=== PATIENT | female | born 1965 | race Caucasian/White ===

== ENCOUNTER 2022-05-12 09:07 | Emergency (ER) | payer MEDICARE, OTHER, SELFPAY ==
[2022-05-12 09:22] VITALS: BP 139/86; PULSE 79; TEMP 35.9; O2SAT 96
--- NOTE | 2022-05-12 09:30 | ED.NURSE ---
EKG done. Pt stated that her heart has been stopping for the last 6-8 weeks and no one will take her to [facility] doctor when this happens. Pt stated [facility] will take care of it. Pt stated that she tried to see her [facility] doctor and her doctor walked out of the room and didnt come back. Pt then stated she went to the [facility] ER and stated there wasn't a doctor on site to take care of her so she walked out of there with out being seen. Asked if pt walked out of an exam room or lobby and pt stated the lobby.
--- NOTE | 2022-05-12 09:45 | ED.GENADULT ---
HPI - General Adult General Chief complaint: Unspecified Complaint, Adult Stated complaint: Erratic heart beat Time Seen by Provider: 05/12/22 09:34 History of Present Illness HPI narrative: This 56-year-old female comes in reporting problems with her heart and her breathing. She states that she flat lined for 37 minutes earlier today. She did not have any lightheadedness, nausea, vomiting, or shortness of breath during this time. She states that her automatic breathing is not functioning right also. She has not been to this facility in the past. She states that she had a colonoscopy years ago with some persistent bleeding after a polyp was removed. She states that that bleeding has resolved years ago but she wonders if her blood is okay at this time. She reports that her brother has assumed power of commercial attorney but she feels that this was done without the appropriate legal process. She arrives here with normal vital signs and clearly has a psych condition. The nurse here reports that she has a diagnosis of schizoaffective disorder. Related Data Allergies Allergy/AdvReac Type Severity Reaction Status Date / Time erythromycin base Allergy Unknown Verified 05/12/22 09:29 Review of Systems Status of ROS: Reports: 10 or more systems reviewed and unremarkable except as noted in History and below Narrative: Constitutional: No fevers, no weight gain or loss. Eyes: No discharge. No vision changes. HENT: No congestion, no sore throat, no ear pain. Cardiovascular: No chest pain, no palpitations. She states that her heart flatlines for extended time. Respiratory: No shortness of breath, no wheezes, no cough. She states that her automatic breathing isn't functioning right. Gastrointestinal: No abdominal pain, no vomiting, no diarrhea. Genitourinary: No dysuria, no hematuria. Musculoskeletal: Normal range of motion. Skin: No rashes, no pruritis. Neurological: No dizziness, weakness, sensory change, speech change. Endo/Heme/Allergies: No bruising or bleeding. No polydipsia. Pysch: no suicidality, no anxiety, no insomnia. All other systems reviewed and are negative. PFS PFS Social History Smoking Status: Never smoker Do you use any of these nicotine containing products: None Second hand tobacco smoke exposure: No How often do you have a drink containing alcohol: never How often do you have six or more drinks on one occasion: Never AUDIT-C Alcohol total score: 0 Non-prescribed substance use: denies use Exam Narrative: Exam Narrative: Constitutional: Well-developed, well-nourished, no acute distress. HEENT: Normocephalic, atraumatic. Neck: Normal range of motion. Nontender. Supple. Heart: Regular. No murmurs. Normal rate. Intact distal pulses. Lungs: Clear to auscultation. No chest discomfort. No wheezes, rhonchi, or rales. Abdomen: Normal bowel sounds. Nontender. No rebound tenderness. Genitalia: Deferred. Back: No midline tenderness. Normal range of motion. Extremities: Normal range of motion. No injury. Skin: Intact. No rash. Warm. No erythema or pallor. Neurologic: No altered sensation. No weakness. Alert and oriented. Psychiatric: No suicidality. No anxiety or depression. No insomnia. She frequently shows delusional thought processes. Nursing notes and vitals signs are reviewed. Const: Vital Signs, click to edit/add: Vital Signs - 24 hr 05/12/22 09:22 Temperature 96.6 F L Pulse Rate [Left P ulse Oximeter] 79 Blood Pressure [Le ft Upper Arm] 139/86 Pulse Oximetry 96 Oxygen Delivery Me thod Room Air Course Vital Signs Vital signs: Initial Vital Signs Temperature 96.6 F L 05/12/22 09:22 Temperature Source Temporal Artery Scan 05/12/22 09:22 Pulse Rate 79 05/12/22 09:22 Blood Pressure 139/86 05/12/22 09:22 Blood Pressure Mean 103 05/12/22 09:22 Blood Pressure Position Supine 05/12/22 09:22 Pulse Oximetry 96 05/12/22 09:22 Oxygen Delivery Method 05/12/22 09:22 Vital Signs Temperature 96.6 F L 05/12/22 09:22 Pulse Rate 79 05/12/22 09:22 Blood Pressure 139/86 05/12/22 09:22 Pulse Oximetry 96 05/12/22 09:22 Oxygen Delivery Method 05/12/22 09:22 Temperature 96.6 F L 05/12/22 09:22 Pulse Rate 79 05/12/22 09:22 Blood Pressure 139/86 05/12/22 09:22 Pulse Oximetry 96 05/12/22 09:22 Oxygen Delivery Method 05/12/22 09:22 Medical Decision Making MDM Narrative Medical decision making narrative: This patient comes in with concern that her heart and her breathing are not working right. She states that she has episodes of flat lining with regard to her heart and that her automatic breathing is not functioning right. She has normal vital signs. Her EKG shows normal sinus rhythm. Her heart tracing on the monitor throughout her stay here was completely normal also. Additionally lab results returned with normal findings. This was very reassuring to the patient and she feels okay to return home now. She has some delusional thinking in these regards but does not appear to be unsafe to herself or others. Lab Data Labs: Lab Results 05/12/22 05/12/22 Range/Units 10:00 10:00 WBC 7.19 (4.50-11.00) K/uL RBC 4.50 (4.00-5.20) m/uL Hgb 13.6 (12.0-16.0) gm/dL Hct 41.2 (33.0-51.0) % MCV 92 (80-100) fL MCH 30 (26-34) pg MCHC 33 (32-36) gm/dL RDW Coeff of Iveth 13.7 (11.5-15.5) % Plt Count 349 (140-440) K/uL Neut % (Auto) 53.7 (42.0-72.0) % Lymph % (Auto) 35.0 (20-44) % [place] % (Auto) 8.6 (0.0-11.0) % Eos % (Auto) 1.8 (0.0-7.0) % Baso % (Auto) 0.6 (0.0-3.0) % Neut # (Auto) 3.86 (1.7-7.0) K/uL Lymph # (Auto) 2.52 (0.90-2.90) K/uL [place] # (Auto) 0.60 (0.00-0.90) K/UL Eos # (Auto) 0.13 (0.00-0.50) K/uL Baso # (Auto) 0.04 (0.00-0.30) K/uL Abs Immat Gran (auto) 0.02 (0.00-0.30) K/uL Imm/Tot Granulo (auto) 0.3 % Sodium 139 (135-149) mmol/L Potassium 3.8 (3.6-5.1) mmol/L Chloride 102 (96-114) mmol/L Carbon Dioxide 24 (20-32) mmol/L BUN 11 (7-30) mg/dL Creatinine 0.7 (0.5-1.5) mg/dL Estimated GFR 101 ml/min Glucose 83 (60-115) mg/dL Calcium 9.2 (8.4-10.6) mg/dL ECG Data Attestation: I personally reviewed and interpreted this ECG as follows: Interpretation: Normal sinus rhythm. Rate is 79 beats per minute. There are no ST or T-wave abnormalities. Discharge Plan Discharge Clinical Impression: Schizoaffective disorder Patient Disposition: Home, Self-Care Condition: Stable Additional Instructions: Continue current plans. Use [id number] medicines as needed and directed. Follow up with MD or return if worsening. Stand Alone Forms: Certess Info Instructions
[2022-05-12 10:04] LABS: Basophils Absolute Auto 0.04 K/uL (0.00-0.30); Basophils Percent Auto 0.6 % (0.0-3.0); Eosinophils Absolute Auto 0.13 K/uL (0.00-0.50); Eosinophils Percent Auto 1.8 % (0.0-7.0); Hematocrit 41.2 % (33.0-51.0); Hemoglobin* 13.6 gm/dL (12.0-16.0); Immature Granulocytes Abs Auto 0.02 K/uL (0.00-0.30); Immature Granulocytes Pct Auto 0.3 %; Lymphocytes Absolute Auto 2.52 K/uL (0.90-2.90); Mean Corpuscular HGB Conc 33 gm/dL (32-36); Mean Corpuscular Hemoglobin 30 pg (26-34); Mean Corpuscular Volume 92 fL (80-100); Monocytes Percent Auto 8.6 % (0.0-11.0); Neutrophils Absolute Auto 3.86 K/uL (1.7-7.0); Neutrophils Percent Auto 53.7 % (42.0-72.0); Platelet Count* 349 K/uL (140-440); RDW Coefficient of Variation % 13.7 % (11.5-15.5); White Blood Count* 7.19 K/uL (4.50-11.00)
[2022-05-12 10:08] LABS: Slide Review Reflex No
[2022-05-12 10:18] LABS: Chloride* 102 mmol/L (96-114); Glucose* 83 mg/dL (60-115); Potassium* 3.8 mmol/L (3.6-5.1); Sodium* 139 mmol/L (135-149)
[2022-05-12 11:25] LABS: Blood Urea Nitrogen* 11 mg/dL (7-30); Calcium* 9.2 mg/dL (8.4-10.6); Carbon Dioxide* 24 mmol/L (20-32); Creatinine* 0.7 mg/dL (0.5-1.5); Estimated Glomerular Filt Rate 101 ml/min
--- NOTE | 2022-05-12 11:37 | ED.NURSE ---
DC instructions reviewed with pt, pt refused to sign DC paperwork. Pt stated she disagrees with the DC paperwork having Schizoaffective disorder on it. Cans Vacuum Tester noticed upon entry to the pt's room that the vitals monitor was alarming with an unusual tone. Pt had disconnected herself from vitals monitor prior to real estate underwriter's entry into the room and likely tampered with the vitals monitor. Cans Vacuum Tester now unable to recover vitals from the monitor. Pt was on the hospital monitor and continuous pulse ox during her visit and was vitally stable throughout her visit. Pt departs ER ambulatory without further issue.
== END 2022-05-12 11:42 | disposition home or self-care (01) ==
LOC: ED 11:36
PROVIDERS: Emergency Provider Emergency Medicine Emergency Medical Services
DX: F25.9 Schizoaffective disorder, unspecified (principal)
CPT/HCPCS: 36415; 80048; 85025; 93005; 99283; 99285

== ENCOUNTER 2022-07-11 18:33 | Emergency (ER) | payer MEDICARE, MEDICAID, SELFPAY ==
[2022-07-11 18:39] VITALS: BP 124/83; PULSE 96; RESP 18; TEMP 36.4; O2SAT 98; BMI 37.0
--- NOTE | 2022-07-11 18:53 | CRLHL7_ITS ---
For Patients: As a result of the Century Cures Act, medical imaging exams and procedure reports are released immediately into your electronic medical record. You may view this report before your referring provider. If you have questions, please contact your health care provider. INDICATION: Pleurisy TECHNIQUE: Two view chest. FINDINGS: The lungs are clear. The heart, mediastinum and pulmonary vessels are of normal size. There is no evidence of pleural disease. IMPRESSION: Negative chest. Dictated by Krupa Reed MD @ 07/11/2022 7:39:35 PM (Electronically Signed)
--- NOTE | 2022-07-11 18:54 | ED_ITS ---
HPI - General Adult General Time Seen by Provider: 18:54 Date Seen: 07/11/22 Chief complaint: Shortness of Breath/Dyspnea Stated complaint: shortness of breath Time Seen by Provider: 07/11/22 18:45 Source: patient Mode of arrival: ambulatory Limitations: no limitations History of Present Illness HPI narrative: Patient is a 56 year white female with history of schizoaffective disorder, who decided to few weeks back to stop taking her Lexapro and Abilify, presents with a concern about pleurisy and needing a ?chest x-ray and a ?. The patient had a chest x-ray in 2017 and apparently it showed pleurisy. She has been concerned about that. She really denies any chest pain now no breathing difficulty other than occasion she says it is hard to get a deep breath. She feels that she is not really anxious about this but wants to ?get it checked out.? She also had some unusual and delusional thinking about her intestines in her stomach that she related the nurses. She declines to comment on that to me. She does states that she feels safe at home, has no suicidal or homicidal ideation. The patient lives independently but does have good support from her neighbors and friends, not so much from her family she reports as as they have ?disowned me?. Patient denies chest pain, suicide ideation or plan, fevers, chills, leg swelling edema, bleeding or clotting problems. She does have history of asthma but has not had any wheezing. Her O2 sats here are excellent at 90% on room air. She is noncyanotic and in no distress. Related Data Home Medications Medication Instructions Recorded Confirmed budesonide-formoterol HFA 160 inhalation 07/11/22 mcg-4.5 mcg/actuation aerosol inhaler (Symbicort) dulaglutide 0.75 mg/0.5 mL mg subcut 07/11/22 subcutaneous pen injector (Trulicity) hydrochlorothiazide 25 mg tablet mg 07/11/22 lancets (Accu-Chek Softclix 07/11/22 07/11/22 Lancets) lisinopril 10 mg tablet mg 07/11/22 metformin 500 mg tablet,extended mg PO 07/11/22 release 24 hr rosuvastatin 20 mg tablet mg 07/11/22 Previous Rx's Medication Instructions Recorded aripiprazole 10 mg tablet (Abilify) 10 mg PO DAILY #14 tabs 07/11/22 escitalopram oxalate 10 mg tablet 10 mg PO DAILY #14 tabs 07/11/22 (Lexapro) Allergies Allergy/AdvReac Type Severity Reaction Status Date / Time erythromycin base Allergy Unknown Verified 05/12/22 09:29 Review of Systems Status of ROS: Reports: 6 or more systems reviewed and unremarkable except as noted in History and below PFSH PFSH Social History Smoking Status: Never smoker Do you use any of these nicotine containing products: None Second hand tobacco smoke exposure: No How often do you have a drink containing alcohol: never How often do you have six or more drinks on one occasion: Never AUDIT-C Alcohol total score: 0 Non-prescribed substance use: denies use service: No Exam Narrative: Exam Narrative: Objective: Patient is alert orient x3, pleasant Vital signs unremarkable O2 sat is excellent HEENT is unremarkable no facial asymmetry, no scleral icterus Neck is supple Chest is clear no rales or wheezing Heart rhythm regular heart murmur Abdomen benign soft Extremities are no edema neurologic grossly nonfocal Examination took place in the with Vicki PINTO in the room nurse Const: Vital Signs, click to edit/add: Vital Signs - 24 hr 07/11/22 18:39 Temperature 97.5 F L Pulse Rate [Right Pulse Oximeter] 96 Respiratory Rate 18 Blood Pressure [Ri ght Upper Arm] 124/83 Pulse Oximetry 98 Oxygen Delivery Me thod Room Air Course Vital Signs Vital signs: Initial Vital Signs Temperature 97.5 F L 07/11/22 18:39 Temperature Source Temporal Artery Scan 07/11/22 18:39 Pulse Rate 96 07/11/22 18:39 Pulse Rhythm 07/11/22 18:39 Respiratory Rate 18 07/11/22 18:39 Blood Pressure 124/83 07/11/22 18:39 Blood Pressure Mean 96 07/11/22 18:39 Pulse Oximetry 98 07/11/22 18:39 Oxygen Delivery Method 07/11/22 18:39 Vital Signs Temperature 97.5 F L 07/11/22 18:39 Pulse Rate 96 07/11/22 18:39 Respiratory Rate 18 07/11/22 18:39 Blood Pressure 124/83 07/11/22 18:39 Pulse Oximetry 98 07/11/22 18:39 Oxygen Delivery Method 07/11/22 18:39 Temperature 97.5 F L 07/11/22 18:39 Pulse Rate 96 07/11/22 18:39 Respiratory Rate 18 07/11/22 18:39 Blood Pressure 124/83 07/11/22 18:39 Pulse Oximetry 98 07/11/22 18:39 Oxygen Delivery Method 07/11/22 18:39 Medical Decision Making MDM Narrative Medical decision making narrative: Patient clearly has schizoaffective disorder and has been not taking her medications. At this time however even though she has some disordered thinking, she does not present a risk I do not believe to herself or others. She does need to get back on her medications and will attempt to give her Abilify and Lexapro, and refill them for a week from [facility] where she gets her prescriptions. She needs to contact her regular physician and get in to be seen again. She does not have any stigmata of fever, coronary issues, leg swelling edema clotting issues by history. At this point I would recommend we check a chest x-ray and if this is unremarkable get her started on her medications if she will agree. I do not see where she has a hospitalized bowl illness at this point although she I do believe she has mental health issues that she needs to be on her medications. She does not really constitutes a threat to herself or others at this point and has ext expressing no suicidal plan. She does feel safe at home. Addendum: By my read her x-ray looks negative. Patient was comforted by this, called in 2 weeks supply of medicine for Abilify and Lexapro she agrees to restart these, she has any feelings of suicidality or self-harm issues or inability care for self she can return. Recommend she see regular doctor within the next week. She was comfortable this and agrees to the plan again felt reassured by the normal x-ray. Discharge Plan Discharge Clinical Impression: Schizoaffective disorder Patient Disposition: Home w/ Parent or Adult Condition: Stable Additional Instructions: Light activity, restart your Abilify and Lexapro, a week's worth has been called in to your pharmacy. Would contact your regular doctor to get an appointment and recheck and review medication use again. Return to ED as needed. Activity Level: Light activity Discharge Diet: Regular Prescriptions: New aripiprazole [Abilify] 10 mg tablet 10 mg PO DAILY Qty: 14 2RF escitalopram oxalate [Lexapro] 10 mg tablet 10 mg PO DAILY Qty: 14 2RF No Action (DME) lancets [Accu-Chek Softclix Lancets] Misc MISCELLANEOUS Label Comments: USE TO TEST ONCE DAILY. lisinopril 10 mg tablet Label Comments: TAKE ONE TABLET BY MOUTH ONE TIME DAILY hydrochlorothiazide 25 mg tablet Label Comments: TAKE ONE TABLET BY MOUTH ONE TIME DAILY metformin 500 mg tablet extended release 24 hr PO Label Comments: TAKE TWO TABLETS BY MOUTH DAILY rosuvastatin 20 mg tablet Label Comments: TAKE ONE TABLET BY MOUTH ONE TIME DAILY budesonide-formoterol [Symbicort] 160-4.5 mcg/actuation HFA aerosol inhaler INHALATION Label Comments: INHALE 2 PUFFS BY MOUTH TWICE DAILY Trulicity 0.75 mg/0.5 mL pen injector SUBCUT Label Comments: INJECT 0.75 MG BY SUBCUTANEOUS ROUTE EVERY 7 DAYS Follow Up/Referrals: Provider,Not a Local [Primary Care Provider] - Stand Alone Forms: MyHealth Info Instructions
[2022-07-11] MEDS: ARIPiprazole 10 MG TABLET PO (19:20)
[2022-07-11] MEDS: ESCITALOPRAM 10 MG TABLET PO (19:22)
== END 2022-07-11 19:30 | disposition home or self-care (01) ==
LOC: ED 19:09
PROVIDERS: Emergency Provider Family Medicine
DX: F25.9 Schizoaffective disorder, unspecified (principal)
CPT/HCPCS: 71046; 99283; A9270

== ENCOUNTER 2022-08-09 16:04 | Emergency (ER) | payer MEDICARE, MEDICAID, SELFPAY ==
[2022-08-09 16:08] VITALS: BP 143/88; PULSE 95; RESP 18; TEMP 35.8; O2SAT 97; BMI 36.8
[2022-08-09 16:34] LABS: Appearance Urine Clear (Clear); Bilirubin Urine Negative (Negative); Blood Urine Trace-intact (Negative); Color Urine Yellow (Yellow); Glucose Urine Negative (Negative); Ketones Urine Negative (Negative); Leukocyte Esterase Urine Negative (Negative); Nitrite Urine Negative (Negative); Protein Urine Negative (Negative); Specific Gravity Urine 1.015 (1.000-1.030); Urobilinogen Urine 0.2 (0.2-1.0)
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
[2022-08-09 16:55] LABS: Bacteria Urine Few; RBC Urine 0-2 (0-2); Squamous Epithelial Cell Urine Few (None-Few); WBC Urine 0-2 (0-5)
[2022-08-09] MEDS: ESCITALOPRAM 10 MG TABLET PO (17:26)
[2022-08-09] MEDS: ARIPiprazole 10 MG TABLET PO (17:27)
[2022-08-09 17:32] LABS: Clue Cells No Clue Cells Seen (None Seen); Trichomonas No Trichomonas Seen (None Seen); Yeast Yeast Seen (None Seen)
[2022-08-09 17:45] VITALS: TEMP 36.8
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
[2022-08-09] MEDS: FLUCONAZOLE 100 MG TABLET 200 MG PO (17:52)
[2022-08-09 17:59] VITALS: BP 135/72; PULSE 74; RESP 16; TEMP 36.9
[2022-08-09 18:48] LABS: Chlamydia DNA Amplified* NOT DETECTED (No Detected); GC DNA Amplified* NOT DETECTED (No Detected)
== END 2022-08-09 18:00 | disposition home or self-care (01) ==
PROVIDERS: Emergency Provider Family Medicine
DX: F25.9 Schizoaffective disorder, unspecified (principal); B37.31 Acute candidiasis of vulva and vagina
CPT/HCPCS: 81003; 81015; 87086; 87210; 87491; 87591; 99283; 99284; A9270

== ENCOUNTER 2022-09-23 16:09 | Outpatient (CLI) | payer MEDICARE, MEDICAID, SELFPAY | END 2022-09-23 16:10 | disposition home or self-care (01) | LOC: AMB 09-25 10:16 | PROVIDERS: Visit Provider Family Medicine | DX: F29 Unspecified psychosis not due to a substance or known physiological condition (principal) | CPT/HCPCS: A0425; A0429 ==

== ENCOUNTER 2023-02-07 15:25 | Outpatient (CLI) | payer MEDICARE, MEDICAID, SELFPAY | END 2023-02-07 15:26 | disposition home or self-care (01) | PROVIDERS: PCP Internal Medicine; Referring Provider Internal Medicine; Visit Provider Nurse Practitioner Family | DX: R30.0 Dysuria (principal); N30.90 Cystitis, unspecified without hematuria; N89.8 Other specified noninflammatory disorders of vagina | CPT/HCPCS: 87086; 87186 ==

== ENCOUNTER 2023-02-13 17:17 | Emergency (ER) | payer MEDICARE, MEDICAID, SELFPAY ==
[2023-02-13] VITALS (7 sets, daily range): BP systolic 121–149; BP diastolic 88–95; PULSE 78–85; RESP 20; TEMP 36.4; O2SAT 91–98; BMI 36.5
--- NOTE | 2023-02-13 17:44 | CRLHL7_ITS ---
For Patients: As a result of the Cures Act, medical imaging exams and procedure reports are released immediately into your electronic medical record. You may view this report before your referring provider. If you have questions, please contact your health care provider. INDICATION: Chest pain. TECHNIQUE: Chest 2 views. COMPARISON: December 07, 2022. FINDINGS: Cardiovascular and mediastinum: Cardiomediastinal silhouette is within normal limits. Lungs and pleural spaces: Lungs are clear. No sign of pleural effusion. No pneumothorax. Bones and soft tissues: No significant findings. IMPRESSION: No acute findings and no significant change from the prior exam. Dictated by Dilcia Barajas MD @ 02/13/2023 6:43:50 PM (Electronically Signed)
--- NOTE | 2023-02-13 17:45 | ED_ITS ---
HPI - General Adult General Time Seen by Provider: 17:45 Date Seen: 02/13/23 Chief complaint: Chest Pain Stated complaint: chest pain, blood/clots in urine Time Seen by Provider: 02/13/23 17:19 Source: patient Mode of arrival: ambulatory Limitations: no limitations History of Present Illness HPI narrative: Patient is a 57-year-old female with history of diabetes, asthma, schizoaffective disorder, hypertension presented emergency department for chest pain and hematuria. Patient states chest pain has been going for the past several weeks. She states is intermittent and sharp sensation in her midsternal chest region. She says the pain will seem to go away when she works out. Patient has been having a cough but she says it is because of her asthma and is not new. Patient states she has had echocardiogram in the past that showed no abnormalities. She does not have a audio narrator. She is scheduled to see primary care for the 1st time next week. Patient denies dyspnea. The chest pain does not radiate anywhere. She does states she also have some suprapubic pain it has been going on for the past week. She has also noticed hematuria with intermittent blood clots in her urine. She has been seen twice at urgent care and was started on antibiotics. Most recent was started yesterday. Denies fevers, chills, headache, vision changes, lightheadedness, dizziness, constipation. She also states she believes that her heart ?stop for 40 minutes? last week that she described as a pleasant feeling. She is also concerned it could be her liver causing the issues but she cannot give a clear reason why. Related Data Home Medications Medication Instructions Recorded Confirmed dulaglutide 0.75 mg/0.5 mL 0.75 mg subcut .weekly 07/11/22 02/07/23 subcutaneous pen injector (Trulicity) lancets (Accu-Chek Softclix 07/11/22 02/07/23 Lancets) lisinopril 10 mg tablet 10 mg PO DAILY 07/11/22 02/07/23 metformin 500 mg tablet,extended 1,000 mg PO DAILY 07/11/22 02/07/23 release 24 hr rosuvastatin 20 mg tablet 20 mg PO HS 07/11/22 02/07/23 albuterol sulfate 90 mcg/actuation 1 puff inhalation PRN 08/09/22 02/07/23 aerosol inhaler (Ventolin HFA) paliperidone palm (6 month) 1,092 1,560 mg IM [id number] 12/07/22 02/07/23 mg/3.5 mL intramuscular syringe blood sugar diagnostic (Accu-Chek 01/30/23 02/07/23 SmartView Test Strips) budesonide-formoterol HFA 160 2 puff inhalation BID 01/30/23 02/07/23 mcg-4.5 mcg/actuation aerosol inhaler (Symbicort) dulaglutide 1.5 mg/0.5 mL mg subcut 01/30/23 02/07/23 subcutaneous pen injector (Trulicity) fluticasone fur. 200 mcg-umeclid 1 inh inhalation Q24H 02/07/23 02/07/23 62.5 mcg-vilant 25 mcg inhalat.powder (Trelegy Ellipta) montelukast PO 02/07/23 02/07/23 Previous Rx's Medication Instructions Recorded aripiprazole 10 mg tablet (Abilify) 10 mg PO DAILY #14 tabs 07/11/22 aripiprazole 10 mg tablet (Abilify) 10 mg PO QHS #14 tabs 08/09/22 escitalopram oxalate 10 mg tablet 10 mg PO DAILY #14 tabs 08/09/22 (Lexapro) Allergies Allergy/AdvReac Type Severity Reaction Status Date / Time amlodipine Allergy Unknown Edema Verified 02/07/23 15:40 cefaclor Allergy Unknown Rash Verified 02/07/23 15:40 erythromycin base Allergy Unknown Swelling Verified 02/07/23 15:40 of Lip/Tongue/Throat olanzapine Allergy Unknown Swelling Verified 02/07/23 15:40 of Lip/Tongue/Throat quetiapine [From Seroquel] Allergy Unknown Weight Verified 02/07/23 15:40 gain, sleep apnea, irregular heart beat, HTN Sulfa (Sulfonamide Allergy Unknown Rash Verified 02/07/23 15:40 Antibiotics) sulfamethoxazole Allergy Unknown Rash Verified 02/07/23 15:40 [From ] trimethoprim [From ] Allergy Unknown Rash Verified 02/07/23 15:40 ziprasidone Allergy Unknown Unknown Verified 02/07/23 15:40 Review of Systems Status of ROS: Reports: 10 or more systems reviewed and unremarkable except as noted in History and below PFSH PFSH Medical History (Updated 02/13/23 @ 19:50 by Skyler Jacob DO) History of breast cancer (2005) ?Z85.3 - Personal history of malignant neoplasm of breast (ICD-10) History of suicide attempt ?Z91.51 - Personal history of suicidal behavior (ICD-10) History of eating disorder ?Z86.59 - Personal history of other mental and behavioral disorders (ICD-10) Cervical polyp (2008) ?N84.1 - Polyp of cervix uteri (ICD-10) History of ovarian cyst ?Z87.42 - Personal history of other diseases of the female genital tract (ICD-10) History of nonadherence to medical treatment ?Z91.199 - Patient's noncompliance with other medical treatment and regimen due to unspecified reason (ICD-10) Surgical History (Updated 01/29/23 @ 10:40 by Carly Bettencourt) History of knee surgery ?Z98.890 - Other specified postprocedural states (ICD-10) History of breast surgery (2005) ?Z98.890 - Other specified postprocedural states (ICD-10) Social History Smoking Status: Never smoker Do you use any of these nicotine containing products: None Second hand tobacco smoke exposure: No How often do you have a drink containing alcohol: never How often do you have six or more drinks on one occasion: Never AUDIT-C Alcohol total score: 0 Non-prescribed substance use: denies use Little interest or pleasure in doing things: several days Feeling down, depressed, or hopeless: several days service: No Exam Narrative: Exam Narrative: Const: Well-nourished, Well-developed, in mild distress Eyes: PERRL, no conjunctival injection, and symmetrical lids ENMT: Atraumatic external nose and ears. Moist mucous membranes. Neck: Symmetric, trachea midline, No thyromegaly. CVS: RRR, No murmurs or gallops. Peripheral pulses 2+ and equal in all extremities RESP: Unlabored respiratory effort. Clear to auscultation bilaterally. GI: Nontender/Nondistended, No rebound or guarding. MSK:Extremities w/o deformity, Normal Active ROM Skin: Warm, Dry. No rashes or lesions. Neuro: Normal Muscle tone, No focal neurological deficits. Psych: Awake, Alert, & Oriented x3. Appropriate mood and affect. Const: Vital Signs, click to edit/add: Vital Signs - 24 hr 02/13/23 17:23 02/13/23 19:18 02/13/23 19:30 Temperature 97.6 F Pulse Rate 84 83 Pulse Rate [Pulse Oximeter] 78 Respiratory Rate 20 Blood Pressure Blood Pressure [Le ft Upper Arm] 121/88 Pulse Oximetry 98 93 92 02/13/23 19:31 02/13/23 19:32 02/13/23 19:45 Temperature Pulse Rate 85 82 84 Pulse Rate [Pulse Oximeter] Respiratory Rate Blood Pressure 149/95 H Blood Pressure [Le ft Upper Arm] Pulse Oximetry 97 91 91 02/13/23 19:50 Temperature Pulse Rate Pulse Rate [Pulse Oximeter] Respiratory Rate 20 Blood Pressure Blood Pressure [Le ft Upper Arm] Pulse Oximetry Course Vital Signs Vital signs: Initial Vital Signs Temperature 97.6 F 02/13/23 17:23 Temperature Source Temporal Artery Scan 02/13/23 17:23 Pulse Rate 78 02/13/23 17:23 Respiratory Rate 20 02/13/23 17:23 Blood Pressure 121/88 02/13/23 17:23 Blood Pressure Mean 99 02/13/23 17:23 Pulse Oximetry 98 02/13/23 17:23 Vital Signs Temperature 97.6 F 02/13/23 17:23 Pulse Rate 78 02/13/23 17:23 Respiratory Rate 20 02/13/23 17:23 Blood Pressure 121/88 02/13/23 17:23 Pulse Oximetry 98 02/13/23 17:23 Temperature 97.6 F 02/13/23 17:23 Pulse Rate 84 02/13/23 19:45 Respiratory Rate 20 02/13/23 19:50 Blood Pressure 149/95 H 02/13/23 19:31 Pulse Oximetry 91 02/13/23 19:45 Medical Decision Making MDM Narrative Medical decision making narrative: Patient 57-year-old female presenting for chest pain and suprapubic pain with hematuria. She is on antibiotics for UTI. States the pain has been on for past few weeks. They do not radiate. She says the chest pain does get better when she works out so I believe ACS is very unlikely at this time. Mode is a sharp pain her vital signs are stable and she looks well in aortic dissection is unlikely. She is not having any dyspnea but we will do a D-dimer as I cannot PERC her out. Also ordered a CBC, EKG, CMP, troponin, urinalysis, lipase all ordered. Toradol given for pain and Zofran for nausea. Chest x-ray was also ordered. Patient's EKG shows no concerning abnormalities. She does have worse R-wave progression compared to last time she was here but this is nonspecific and ACS is relatively low my differential at this time. D-dimer was within normal limits so a PE is unlikely. Urinalysis shows no signs of infection and only a small amount of blood. Cbc and CMP showed no concerning abnormalities. Chest x-ray showed no concerning abnormalities. We will order CT scan of the abdomen and pelvis. Initially ordered with IV contrast but patient claims she becomes incontinent of urine and projectile vomits with contrast. There is some psych problems going on with this patient at this time will just ordered with CT without contrast. CT scan showed no concerning abnormalities. Lipase was within normal limits. Unsure was causing the patient's symptoms but does not appear to be emergent at this time and should be discharged home. She is agreeable to this plan. Lab Data Labs: Lab Results 02/13/23 02/13/23 02/13/23 Range/Units 18:00 18:20 19:26 WBC 7.50 (4.50-11.00) K/uL RBC 4.44 (4.00-5.20) m/uL Hgb 13.4 (12.0-16.0) gm/dL Hct 40.0 (33.0-51.0) % MCV 90 (80-100) fL MCH 30 (26-34) pg MCHC 34 (32-36) gm/dL RDW Coeff of Iveth 13.1 (11.5-15.5) % Plt Count 353 (140-440) K/uL Neut % (Auto) 57.8 (42.0-72.0) % Lymph % (Auto) 32.9 (20-44) % [place] % (Auto) 7.6 (0.0-11.0) % Eos % (Auto) 0.9 (0.0-7.0) % Baso % (Auto) 0.4 (0.0-3.0) % Neut # (Auto) 4.33 (1.7-7.0) K/uL Lymph # (Auto) 2.47 (0.90-2.90) K/uL [place] # (Auto) 0.60 (0.00-0.90) K/UL Eos # (Auto) 0.07 (0.00-0.50) K/uL Baso # (Auto) 0.03 (0.00-0.30) K/uL Abs Immat Gran (auto) 0.03 (0.00-0.30) K/uL Imm/Tot Granulo (auto) 0.4 % D-Dimer Quant (PE/DVT) 0.27 (0.00-0.50) ug/ml Sodium 135 (135-149) mmol/L Potassium 3.3 L (3.6-5.1) mmol/L Chloride 102 (96-114) mmol/L Carbon Dioxide 24 (20-32) mmol/L BUN 13 (7-30) mg/dL Creatinine 0.7 (0.5-1.5) mg/dL Estimated Creat Clear 86.23 Estimated GFR 101 ml/min Glucose 152 H (60-115) mg/dL Calcium 9.1 (8.4-10.6) mg/dL Total Bilirubin 0.3 (0.1-1.5) mg/dL AST 25 (12-35) U/L ALT 34 (4-35) U/L Alkaline Phosphatase 91 (40-150) U/L Troponin I < 0.01 L (0.01-0.04) ng/mL Total Protein 6.9 (6.0-8.3) g/dL Albumin 4.1 (3.3-5.0) g/dL Lipase 126 (23-300) U/L Urine Color Yellow (Yellow) Urine Appearance Clear (Clear) Urine pH 6.0 (5.0-8.5) Ur Specific [place] <= 1.005 (1.000-1.030) Urine Protein Negative (Negative) Urine Glucose (UA) Negative (Negative) Urine Ketones Negative (Negative) Urine Blood Trace-intact A (Negative) Urine Nitrite Negative (Negative) Urine Bilirubin Negative (Negative) Urine Urobilinogen 0.2 (0.2-1.0) Ur Leukocyte Esterase Negative (Negative) Urine RBC 0-2 (0-2) Urine WBC 0-2 (0-5) Ur Squamous Epith Cells None (None-Few) Urine Bacteria None (None) Lab Acknowledgement Test Added Imaging Data Chest x-ray: Attestation: I have reviewed the pertinent imaging results. Radiologist's impression: INDICATION: Chest pain. TECHNIQUE: Chest 2 views. COMPARISON: December 07, 2022. FINDINGS: Cardiovascular and mediastinum: Cardiomediastinal silhouette is within normal limits. Lungs and pleural spaces: Lungs are clear. No sign of pleural effusion. No pneumothorax. Bones and soft tissues: No significant findings. IMPRESSION: No acute findings and no significant change from the prior exam. Dictated by Dilcia Barajas MD @ 02/13/2023 6:43:[address] scan-abdomen/pelvis: Radiologist's impression: INDICATION: Flank pain TECHNIQUE: CT Abdomen and pelvis without i.v. contrast. Coronal and sagittal reformats were obtained. COMPARISON: None FINDINGS: Lower chest: Unremarkable. Liver: Unremarkable. Spleen: Unremarkable. Pancreas: Unremarkable. Gallbladder: There is a 2.5 cm calcified gallstone noted. Kidney: There is a 1 mm stone present in the lower pole of the left kidney. Adrenal: A 12 mm left adrenal nodule is noted. Bowel: Moderate diverticulosis of the sigmoid colon is present with no evidence of diverticulitis. The appendix is normal in appearance and size. A moderate fat containing umbilical hernia is noted. Vascular: Unremarkable. Lymph: Unremarkable. Peritoneum: Unremarkable. No pneumoperitoneum is seen. No significant ascites is noted. Pelvis: There is an 8 mm hypodensity in the uterine cervix which may represent a nabothian cyst. Soft tissue: Unremarkable. Bone: Unremarkable for age. IMPRESSION: 1. A 12 mm left adrenal nodule is noted. ECG Data Attestation: I personally reviewed and interpreted this ECG as follows: (Normal sinus rhythm with a rate 97 beats per minute, low-voltage QRS, normal intervals, normal axis, no ST or T-wave abnormalities. There is poor R-wave progression in V4 through V6 when compared to previous EKG) Prior ECG tracings: available for review (05/16/2022) Discharge Plan Discharge Clinical Impression: Abdominal pain, suprapubic, Atypical chest pain Patient Disposition: Home, Self-Care Condition: Stable Instructions: Noncardiac Chest Pain (ED) Additional Instructions: Follow-up with primary care provider. Continue taking antibiotics as previously prescribed. Return for new or worsened symptoms. Prescriptions: No Action paliperidone palm (6 month) 1,092 mg/3.5 mL syringe 1,560 mg IM [id number] Patient Comments: Unsure of dosing on this medication. Patient unable to clarify. (DME) Accu-Chek SmartView Test Strip Strip See Rx Instructions .Route Rx Instructions: As directed Trulicity 1.5 mg/0.5 mL pen injector subcut montelukast PO Trelegy Ellipta 200-62.5-25 mcg blister with device 1 inh inhalation Q24H (DME) lancets [Accu-Chek Softclix Lancets] Misc MISCELLANEOUS Patient Comments: USE TO TEST ONCE DAILY. lisinopril 10 mg tablet 10 mg PO DAILY Patient Comments: TAKE ONE TABLET BY MOUTH ONE TIME DAILY metformin 500 mg tablet extended release 24 hr 1,000 mg PO DAILY Patient Comments: TAKE TWO TABLETS BY MOUTH DAILY rosuvastatin 20 mg tablet 20 mg PO HS Patient Comments: TAKE ONE TABLET BY MOUTH ONE TIME DAILY Trulicity 0.75 mg/0.5 mL pen injector 0.75 mg SUBCUT .weekly Patient Comments: INJECT 0.75 MG BY SUBCUTANEOUS ROUTE EVERY 7 DAYS aripiprazole [Abilify] 10 mg tablet 10 mg PO DAILY Qty: 14 2RF budesonide-formoterol [Symbicort] 160-4.5 mcg/actuation HFA aerosol inhaler 2 puff INHALATION BID Patient Comments: INHALE 2 PUFFS BY MOUTH TWICE DAILY albuterol sulfate [Ventolin HFA] 90 mcg/actuation HFA aerosol inhaler 1 puff INHALATION PRN Patient Comments: INHALE 1 TO 2 PUFFS BY MOUTH EVERY 4 HOURS NEEDED FOR SHORTNESS OF BREATH escitalopram oxalate [Lexapro] 10 mg tablet 10 mg PO DAILY Qty: 14 0RF aripiprazole [Abilify] 10 mg tablet 10 mg PO QHS Qty: 14 0RF Follow Up/Referrals: Pau Ordonez MD [Primary Care Provider] - Stand Alone [facility] Info Instructions
[2023-02-13 18:06] LABS: Basophils Absolute Auto 0.03 K/uL (0.00-0.30); Basophils Percent Auto 0.4 % (0.0-3.0); Eosinophils Absolute Auto 0.07 K/uL (0.00-0.50); Eosinophils Percent Auto 0.9 % (0.0-7.0); Hemoglobin* 13.4 gm/dL (12.0-16.0); Immature Granulocytes Abs Auto 0.03 K/uL (0.00-0.30); Immature Granulocytes Pct Auto 0.4 %; Lymphocytes Absolute Auto 2.47 K/uL (0.90-2.90); Lymphocytes Percent Auto 32.9 % (20-44); Mean Corpuscular HGB Conc 34 gm/dL (32-36); Mean Corpuscular Hemoglobin 30 pg (26-34); Mean Corpuscular Volume 90 fL (80-100); Monocytes Percent Auto 7.6 % (0.0-11.0); Neutrophils Absolute Auto 4.33 K/uL (1.7-7.0); Neutrophils Percent Auto 57.8 % (42.0-72.0); Platelet Count* 353 K/uL (140-440); RDW Coefficient of Variation % 13.1 % (11.5-15.5); Red Blood Count 4.44 m/uL (4.00-5.20)
[2023-02-13 18:07] LABS: Slide Review Reflex No
--- NOTE | 2023-02-13 18:17 | ED.NURSE ---
Pt at first declined IV due to having too many IV's before. Explained the importance of having an IV and getting her medications, and she then agreed.
[2023-02-13 18:22] LABS: Albumin* 4.1 g/dL (3.3-5.0); Chloride* 102 mmol/L (96-114); Sodium* 135 mmol/L (135-149)
[2023-02-13 18:23] LABS: Potassium* 3.3 mmol/L (3.6-5.1)
[2023-02-13 18:25] LABS: Alkaline Phosphatase* 91 U/L (40-150); Aspartate Amino Transferase* 25 U/L (12-35); Bilirubin Total* 0.3 mg/dL (0.1-1.5); Blood Urea Nitrogen* 13 mg/dL (7-30); Carbon Dioxide* 24 mmol/L (20-32); Creatinine* 0.7 mg/dL (0.5-1.5); Est. Creatinine Clearance* 86.23; Estimated Glomerular Filt Rate 101 ml/min; Total Protein* 6.9 g/dL (6.0-8.3)
[2023-02-13 18:26] LABS: Alanine Aminotransferase* 34 U/L (4-35); Calcium* 9.1 mg/dL (8.4-10.6); Glucose* 152 mg/dL (60-115)
[2023-02-13 18:27] LABS: D Dimer Quantitative* 0.27 ug/ml (0.00-0.50)
[2023-02-13] MEDS: KETOROLAC 15 MG/ML inj IVP (18:32)
--- NOTE | 2023-02-13 18:35 | CRLHL7_ITS ---
For Patients: As a result of the Cures Act, medical imaging exams and procedure reports are released immediately into your electronic medical record. You may view this report before your referring provider. If you have questions, please contact your health care provider. INDICATION: Flank pain TECHNIQUE: CT Abdomen and pelvis without i.v. contrast. Coronal and sagittal reformats were obtained. COMPARISON: None FINDINGS: Lower chest: Unremarkable. Liver: Unremarkable. Spleen: Unremarkable. Pancreas: Unremarkable. Gallbladder: There is a 2.5 cm calcified gallstone noted. Kidney: There is a 1 mm stone present in the lower pole of the left kidney. Adrenal: A 12 mm left adrenal nodule is noted. Bowel: Moderate diverticulosis of the sigmoid colon is present with no evidence of diverticulitis. The appendix is normal in appearance and size. A moderate fat containing umbilical hernia is noted. Vascular: Unremarkable. Lymph: Unremarkable. Peritoneum: Unremarkable. No pneumoperitoneum is seen. No significant ascites is noted. Pelvis: There is an 8 mm hypodensity in the uterine cervix which may represent a nabothian cyst. Soft tissue: Unremarkable. Bone: Unremarkable for age. IMPRESSION: 1. A 12 mm left adrenal nodule is noted. Dictated by Kevan Lozano MD @ 02/13/2023 7:45:04 PM Please note that all CT scans at this facility use dose modulation, iterative reconstruction, and/or weight-based dosing when appropriate to reduce radiation dose to as low as reasonably achievable. Dictated by: Kevan Lozano MD @ 02/13/2023 19:45:10 (Electronically Signed)
[2023-02-13 18:39] LABS: Troponin I* < 0.01 ng/mL (0.01-0.04)
[2023-02-13 18:43] LABS: Appearance Urine Clear (Clear); Bilirubin Urine Negative (Negative); Blood Urine Trace-intact (Negative); Color Urine Yellow (Yellow); Glucose Urine Negative (Negative); Ketones Urine Negative (Negative); Leukocyte Esterase Urine Negative (Negative); Nitrite Urine Negative (Negative); Protein Urine Negative (Negative); Specific Gravity Urine <= 1.005 (1.000-1.030); Urobilinogen Urine 0.2 (0.2-1.0)
[2023-02-13 18:55] LABS: RBC Urine 0-2 (0-2); WBC Urine 0-2 (0-5)
[2023-02-13 19:33] LABS: Lipase* 126 U/L (23-300)
== END 2023-02-13 19:58 | disposition home or self-care (01) ==
PROVIDERS: Emergency Provider Student in an Organized Health Care Education/Training Program; PCP Internal Medicine
DX: R07.9 Chest pain, unspecified (principal); R10.30 Lower abdominal pain, unspecified
CPT/HCPCS: 36415; 71046; 74176; 80053; 81001; 83690; 84484; 85025; 85379; 93005; 96374; 99283; 99284; J1885

== ENCOUNTER 2023-02-19 14:31 | Outpatient (CLI) | payer MEDICARE, MEDICAID, SELFPAY | END 2023-02-19 14:32 | disposition home or self-care (01) | PROVIDERS: PCP Internal Medicine; Visit Provider Internal Medicine | DX: Z00.00 Encounter for general adult medical examination without abnormal findings (principal); E78.5 Hyperlipidemia, unspecified; I10 Essential (primary) hypertension; E11.9 Type 2 diabetes mellitus without complications | CPT/HCPCS: 80053; 80061; 82043; 82570 ==

== ENCOUNTER 2023-08-29 08:45 | Outpatient (CLI) | payer MEDICARE, MEDICAID, SELFPAY ==
--- NOTE | 2023-08-29 08:45 | US_ITS ---
Patient: RAFAL ANTONIO Facility:?[facility] Patient ID:?[id number] Site Patient ID:?[id number]. Site :?[id number] Study:?US-Pelvis -08/29/2023 9:46:37 AM Ordering Physician:?Charity Wing Final Report: INDICATION: Intra-abdominal and pelvic swelling COMPARISON: none TECHNIQUE: 2D charles scale and color Doppler images were acquired of the pelvis using a transabdominal approach. FINDINGS: Sonographic images demonstrate a normal size and smooth outer contour of the uterus. Uterus measures 7.1 cm in length by 2.3 cm in AP diameter by 4.7 cm in transverse dimension. The myometrium has a normal uniform echotexture. The endometrial lining appears normal and measures 1.9 mm in composite thickness. There is a small cyst within the right side of the lower uterine segment, as visualized on the prior CT scan. Multiple measurements of the lower uterine segment are taken which do not appear to have a correlate on the prior exam. The right ovary measures 2.0 x 1.0 x 1.8 cm in size and the left ovary measures 1.8 x 2.9 x 1.3 cm. The ovaries demonstrate normal arterial and venous blood flow on color Doppler analysis. There are no suspicious fluid collections within the cul-de-sac. A small ovarian cyst is present. IMPRESSION: There is a small right lower uterine segment cervical nabothian cysts. Several measurements of the endocervix tissue were submitted which do not appear to have a correlate on CT and are of doubtful significance although correlation with Pap smear recommended. No adnexal mass or pelvic free fluid. Ovaries appear unremarkable for age. Dictated by Adriel Moralez MD @ 08/29/2023 11:26:11 AM Signed by:?Adriel Moralez MD @08/29/2023 11:26:11 AM (Electronic Signature)
== END 2023-08-29 08:46 | disposition home or self-care (01) ==
LOC: US 08:46
PROVIDERS: PCP Internal Medicine; Visit Provider Registered Nurse
DX: R19.00 Intra-abdominal and pelvic swelling, mass and lump, unspecified site (principal)
CPT/HCPCS: 76856

== ENCOUNTER 2024-03-26 19:44 | Emergency (ER) | payer MEDICARE, MEDICAID, SELFPAY ==
[2024-03-26 19:57] VITALS: BP 124/81; PULSE 92; RESP 16; TEMP 36.4; O2SAT 96; BMI 36.0
--- NOTE | 2024-03-26 20:49 | ED_ITS ---
HPI - Altered Mental Status General Chief Complaint: Altered Mental Status Stated Complaint: mental health Time Seen by Provider: 03/26/24 20:32 History of Present Illness HPI narrative: Patient is a 58-year-old woman who presents as she would like to enter a crisis. She feels like she is low on money on lower rent is paid. She has been requesting money from [facility] [employer] but is not heard back. Patient has history of schizoaffective disorder but denies taking any medication. She states she is not suicidal or homicidal. She feels like she is under are lot of stress as people are sling during her and may take away some of her college diplomas. She has had no chest pain no shortness a breath orthopnea no PND. Patient has not been using any substances. She would simply like a ride to a crisis center. Related Data Home Medications ?Medication ?Instructions ?Recorded ?Confirmed lancets (Accu-Chek Softclix 07/11/22 03/13/24 Lancets) lisinopril 10 mg tablet 10 mg PO DAILY 07/11/22 03/13/24 metformin 500 mg tablet,extended 1,000 mg PO DAILY 07/11/22 03/13/24 release 24 hr albuterol sulfate 90 mcg/actuation 1 puff inhalation PRN 08/09/22 03/13/24 aerosol inhaler (Ventolin HFA) blood sugar diagnostic (Accu-Chek 01/30/23 03/13/24 SmartView Test Strips) fluticasone fur. 200 mcg-umeclid 1 inh inhalation Q24H 02/07/23 03/13/24 62.5 mcg-vilant 25 mcg inhalat.powder (Trelegy Ellipta) montelukast PO 02/07/23 03/13/24 Previous Rx's ?Medication ?Instructions ?Recorded dulaglutide 1.5 mg/0.5 mL 1.5 mg (0.5 mL) subcut QWEEK #2 mL 04/30/23 subcutaneous pen injector ([facility]) Allergies Allergy/AdvReac Type Severity Reaction Status Date / Time amlodipine Allergy Unknown Edema Verified 03/13/24 07:57 cefaclor Allergy Unknown Rash Verified 03/13/24 07:57 erythromycin base Allergy Unknown Swelling Verified 03/13/24 07:57 of Lip/Tongue/Throat olanzapine Allergy Unknown Swelling Verified 03/13/24 07:57 of Lip/Tongue/Throat quetiapine [From Seroquel] Allergy Unknown Weight Verified 03/13/24 07:57 gain, sleep apnea, irregular heart beat, HTN Sulfa (Sulfonamide Allergy Unknown Rash Verified 03/13/24 07:57 Antibiotics) sulfamethoxazole Allergy Unknown Rash Verified 03/13/24 07:57 [From Septra] trimethoprim [From Septra] Allergy Unknown Rash Verified 03/13/24 07:57 ziprasidone Allergy Unknown Unknown Verified 03/26/24 20:09 Review of Systems Status of ROS: Reports: 10 or more systems reviewed and unremarkable except as noted in History and below [facility] Medical History History of breast cancer (2005) ?Z85.3 - Personal history of malignant neoplasm of breast (ICD-10) History of suicide attempt ?Z91.51 - Personal history of suicidal behavior (ICD-10) History of eating disorder ?Z86.59 - Personal history of other mental and behavioral disorders (ICD-10) History of ovarian cyst ?Z87.42 - Personal history of other diseases of the female genital tract (ICD-10) Surgical History History of knee surgery ?Z98.890 - Other specified postprocedural states (ICD-10) History of breast surgery (2005) ?Z98.890 - Other specified postprocedural states (ICD-10) Social History Smoking Status: Never smoker Do you use any of these nicotine containing products: None Second hand tobacco smoke exposure: No How often do you have a drink containing alcohol: never How often do you have six or more drinks on one occasion: Never AUDIT-C Alcohol total score: 0 Non-prescribed substance use: denies use service: No Exam Narrative: Exam Narrative: EXAM GENERAL: Patient appears comfortable and well. EYES: No scleral icterus. ENT: Tympanic membranes and oropharynx normal. THYROID: no thyroid nodules or thyromegaly. LYMPH: No supraclavicular or cervical lymphadenopathy. SKIN: Visible skin seen during exam normal or with benign process only. EXT: No dependent lower extremity pedal edema. HEART: Regular rate and rhythm with no murmurs, rubs, or gallops. LUNGS: Clear to auscultation bilaterally with no crackles or wheezes. ABD: Soft, non tender, non distended. PSYCH: Good eye contact, speech is tangential. Neurologic cranial nerves 2-12 grossly intact no focal defects. Const: Vital Signs, click to edit/add: Vital Signs - 24 hr 03/26/24 19:57 Temperature 97.6 F Pulse Rate [Pulse Oximeter] 92 Respiratory Rate 16 Blood Pressure [Ri ght Upper Arm] 124/81 Pulse Oximetry 96 Oxygen Delivery Me thod Room Air Course Course ED Course: Patient seen and examined. Vital Signs Vital signs: Initial Vital Signs Temperature 97.6 F 03/26/24 19:57 Temperature Source Temporal Artery Scan 03/26/24 19:57 Pulse Rate 92 03/26/24 19:57 Respiratory Rate 16 03/26/24 19:57 Blood Pressure 124/81 03/26/24 19:57 Blood Pressure Mean 95 03/26/24 19:57 Blood Pressure Position Sitting 03/26/24 19:57 Pulse Oximetry 96 03/26/24 19:57 Oxygen Delivery Method Room Air 03/26/24 19:57 Vital Signs Temperature 97.6 F 03/26/24 19:57 Pulse Rate 92 03/26/24 19:57 Respiratory Rate 16 03/26/24 19:57 Blood Pressure 124/81 03/26/24 19:57 Pulse Oximetry 96 03/26/24 19:57 Oxygen Delivery Method Room Air 03/26/24 19:57 Temperature 97.6 F 03/26/24 19:57 Pulse Rate 92 03/26/24 19:57 Respiratory Rate 16 03/26/24 19:57 Blood Pressure 124/81 03/26/24 19:57 Pulse Oximetry 96 03/26/24 19:57 Oxygen Delivery Method Room Air 03/26/24 19:57 MDM - Altered Mental Status MDM Narrative Medical decision making narrative: Patient is a 58-year-old woman who comes in [facility] with psychosocial stressors. She documents she has not been drinking and I do see her. She is concerned about her financial well-being long-term and would like to go to a crisis bed although she has a safe bed to be in here in [place]. She is not homicidal or suicidal. She is not having any medical complaints but would like a ride to a number of crisis but has a she has found online in the [employer]. She did come here by cab. I informed her that we can not simply order an ambulance to get her up to a crisis bed in that she has a safe med to stay in here. She does not believe she is in any danger in her home. At this time we did arrange for a cab close outpatient follow-up. We did explain to her the need for close outpatient follow-up and our services that are available here. Discharge Plan Discharge Clinical Impression: Schizoaffective disorder Patient Disposition: Home, Self-Care Condition: Stable Instructions: Schizoaffective Disorder (ED) Additional Instructions: Continue current care Follow-up with your doctor in the next several days. Activity Level: No Restrictions Discharge Diet: Regular Prescriptions: No Action (DME) Accu-Chek SmartView Test Strip Strip See Rx Instructions .Route Rx Instructions: As directed montelukast PO Trelegy Ellipta 200-62.5-25 mcg blister with device 1 inh inhalation Q24H (DME) lancets [Accu-Chek Softclix Lancets] Misc MISCELLANEOUS Patient Comments: USE TO TEST ONCE DAILY. lisinopril 10 mg tablet 10 mg PO DAILY Patient Comments: TAKE ONE TABLET BY MOUTH ONE TIME DAILY metformin 500 mg tablet extended release 24 hr 1,000 mg PO DAILY Patient Comments: TAKE TWO TABLETS BY MOUTH DAILY albuterol sulfate [Ventolin HFA] 90 mcg/actuation HFA aerosol inhaler 1 puff INHALATION PRN Patient Comments: INHALE 1 TO 2 PUFFS BY MOUTH EVERY 4 HOURS NEEDED FOR SHORTNESS OF BREATH Trulicity 1.5 mg/0.5 mL pen injector 1.5 mg subcut QWEEK Qty: 2 1RF Follow Up/Referrals: Pau Ordonez MD [Primary Care Provider] - Stand Alone Forms: [employer] Info Instructions
--- NOTE | 2024-03-26 20:57 | ED.NURSE ---
Pt talked in depth with doctor and she is being discharged at this time.
--- OUTSIDE RECORDS SUMMARY | 2024-03-26 21:02 | XMS_ITS | Encounter Summary ---
Author Organization [facility] Address [address] [place] [address] Care Team Providers Care Engineer Conductor Name Role Phone Needs Pcp, Assignment Primary Care Provider [phone] Encounter Details Date Type Department Care Team (Late st Contact Info) Description 08/23/2018 Consent for Procedure/Treatme nt [facility] INFORMED CONSENT NEUROLEPTIC MEDICATIONS Social History Tobacco Use Types Packs/Day Years Used Date Smoking Tobacco: Never Smokeless Tobacco: Never Comments:unable to assess. P t declined interview Alcohol Use Standard Drinks/Week Comments Yes 0 (1 standard drink = 0.6 oz pure alcohol) unable to assess. Pt declined interview Sex and Gender Information Value Date Recorded Sex Assigned at Not on file Gender Identity Not on file Sexual Orientation Not on file documented as of this encounter Plan of Treatment Not on file documented as of this encounter Visit Diagnoses Not on filedocumented in this encounter Additional Health Concerns Infection Onset Date Last Indicated Resolved Time R/O COVID19 03/23/2021 03/23/2021 03/23/2021 8:06 PM CDT documented as of this encounter Care Teams Engineer Conductor Relationship Specialty Start Date End Date Needs Pcp, [place], [place] [address] PCP - General 02/01/23 documented as of this encounter
--- OUTSIDE RECORDS SUMMARY | 2024-03-26 21:02 | XMS_ITS | Encounter Summary ---
Author Organization [facility] Address [address] [place] [address] Care Team Providers Care Criminal Justice Instructor Name Role Phone Needs Pcp, Assignment Primary Care Provider [phone] Encounter Details Date Type Department Care Team (Late st Contact Info) Description 04/17/2013 Scanned History External to External, [place] [address] [facility] Social History Tobacco Use Types Packs/Day Years Used Date Smoking Tobacco: Never Smokeless Tobacco: Never Comments:never smoked for ve ry long Alcohol Use Standard Drinks/Week Comments No 0 (1 standard drink = 0.6 oz pur e alcohol) Sex and Gender Information Value Date Recorded Sex Assigned at Not on file Gender Identity Not on file Sexual Orientation Not on file documented as of this encounter Progress Notes * External, Provider - 04/17/2013 12:00 AM CDT documented in this encounter Plan of Treatment Not on file documented as of this encounter Visit Diagnoses Not on filedocumented in this encounter Additional Health Concerns Infection Onset Date Last Indicated Resolved Time R/O COVID19 03/23/2021 03/23/2021 03/23/2021 8:06 PM CDT documented as of this encounter Care Teams Criminal Justice Instructor Relationship Specialty Start Date End Date Needs Pcp, Assignment [place], [place] [address] PCP - General 02/01/23 documented as of this encounter
--- OUTSIDE RECORDS SUMMARY | 2024-03-26 21:02 | XMS_ITS | Clinical Summary ---
Author Organization [facility] Address [address] [place] [id number] Care Team Providers Care Pilot Plant Operator Helper Name Role Phone Madyson Cordon M.D. Primary Care Provider Source Comments Patient records contain information from all sites at [facility]. For routine questions regarding patient records, call [phone] during business hours, M-F 8:00 AM - 5:00 PM Central Time. Record requests for emergency care only can be directed to [phone] at any time.[facility] Allergies Active Allergy Reactions Criticality Noted Date Comments Amlodipine Edema (Reselect Reaction) 10/12/2015 PN: edema Other reaction(s): Edema,generalized PN: edema Ceftriaxone Other (see comments) 03/12/2002 rash Cephalosporins Rash,Other (see comments) Low 03/12/2002 rash rash rash Ciprofloxacin Other (see comments) 12/24/2012 Clotrimazole Other (see comments) 12/24/2012 Erythromycin Swelling 12/24/2012 PN: Tongue and throat swelling Other reaction(s): Swelling PN: Tongue and throat swelling Fluoxetine Other (see comments) 12/24/2012 Olanzapine Edema, suggestive of allergic reaction, i.e., lip, tongue, or throat swelling,Anaphylaxis High 02/12/2022 Penicillins Rash 06/21/2005 Pollen Extracts Other (see comments) 06/21/2005 Quetiapine Other (see comments) 12/24/2012 PN: Weight gain, sleep apnea, irregular heart beat, high blood pressure from this medication PN: Weight gain, sleep apnea, irregular heart beat, high blood pressure from this medication Sulfa (Sulfonamide Antibiotics) Other (see comments) 12/24/2012 Sulfamethoxazole-Trimeth oprim Rash Low 10/12/2015 Trimethoprim Rash 02/07/2023 Ziprasidone Other (see comments) 09/12/2020 Medications Medication Sig Dispensed Refills Start Date End Date Status albuterol 90 mcg/actuation inhaler Inhale 1-2 puffs every 4 (four) hours as needed. 01/28/2021 Active ibuprofen (ADVIL,MOTRIN) 200 mg tablet Take 1 tablet by mouth every 4 (four) hours as needed. 12/24/2012 Active lisinopriL (PRINIVIL,ZESTRIL) 10 mg tablet Take 1 tablet by mouth daily. 01/23/2021 Active paliperidone palmitate (Invega Sustenna) 234 mg/1.5 mL injection Inject 117 mg intramuscularly every 30 (thirty) days. 06/24/2013 Active rosuvastatin (CRESTOR) 20 mg tablet Take 1 tablet by mouth daily. 01/23/2021 Active blood sugar diagnostic strips daily. 02/11/2022 Active Trelegy Ellipta 100-62.5-25 mcg inhaler INHALE 1 PUFF BY MOUTH EVERY DAY, AT THE SAME TIME EACH DAY Active Ozempic 0.25 mg or 0.5 mg (2 mg/3 mL) injection Inject 0.25 mg under the skin over 168 hr. 10/25/2023 Active metFORMIN (Glucophage) 500 mg tablet 04/08/2015 Metformin Oral PO 2.0 TABLET(S) daily 04/08/2015 active 04/08/2015 Active Active Problems Problem Noted Date Diagnosed Date Schizophrenia Paranoid 12/24/2012 Overview (11/27/2016): Paranoid schizophrenia NOS Hypertension Chronic 08/24/2011 Overview (11/27/2016): Hypertension Encounters Date Type Department Care Team Description 03/10/2024 Orders Only [facility]CP [facility] Madyson Cordon M.D. 01/14/2024 11:30 AM CDT Comprehensive Visit Department of Family Medicine, [facility], in [place] [address] [place] [address] Madyson Cordon M.D. Well Adult Examination Normal (Primary Dx); Schizophrenia Paranoid (HCC); Asthma Mild Persistent (HCC); Diabetes Mellitus Type 2 (HCC); Hypertension Essential Primary; Hyperlipidemia; Obesity Body Mass Index 30-39.9 Adult; Cancer Breast Personal History from Last 3 Months Immunizations Name Administration Dates Next Due DT, Pediatric 12/13/1987 DTaP (Daptacel) 12/13/1987 H1N1 All Forms 06/23/2015 HepA / HepB 04/24/2016 HepA Adult 04/24/2016 HepB Adult 04/24/2016,08/25/2015,06/23/2015 Influenza Split 05/19/2013 Influenza TIV (IM) 08/24/2005 Influenza, Injectable, Quadrivalent 04/09,04/23/2018,03/12/2017,2015,06/23/2015,05/14/2001 Influenza, Seasonal, Injectable 05/08/20 13,04/22/2007,06/06/2006,2005,07/09/2002 Influenza, Unspecified 07/27/2011,2005,08/24/2005,2002,06/06/1989 PPD Test 04/12/2008 PPSV23 09/02/2017 SARS-COV-2 (COVID-19) - PFIZ ER (Discontinued)(12 years or older) 11/21/2020,10/22/2020 Td (Adult), adsorbed 08/23/2023,11/05/1999,07/08 Td, (Adult) Unspecified 11/05/1999,07/08/1999 Tdap 08/24/2011,11/29/2009,01/06/2007 Tuberculin Skin Test, Unspecified 04/12/2008 influenza trivalent high dos e (HD)(PF) 05/19/2013 influenza trivalent vaccine (6 months and older)(PF) 07/27/2011 influenza vaccine quad (FLUZONE/FLUARIX) (6 months and older)(PF) 05/07/2020,04/01/2020,04/23/2018,2016,04/24/2016,06/23/2015,05/19/2013,1 ,05/14/2001 Social History Tobacco Use Types Packs/Day Years Used Date Smoking Tobacco: Never Smokeless Tobacco: Never Tobacco Cessation:Counseling Given: Not Answered Alcohol Use Standard Drinks/Week Comments Yes 0 (1 standard drink = 0.6 oz pur e alcohol) Nutrition Answer Date Recorded Nutrition: EVOO Fat Source 13 03/22 Nutrition: Servings of Fruits/Vegetables per Day Not on file 03/22/2020 Dental Answer Date Recorded Dental: Regular Dentist Unknown 09/07/19 21 Sex and Gender Information Value Date Recorded Sex Assigned at Not on file Gender Identity Not on file Sexual Orientation Not on file Last Filed Vital Signs Vital Sign Reading Time Taken Comments Blood Pressure 109/74 01/14/2024 11:18 AM CDT av erage Pulse 96 01/14/2024 11:18 AM CDT Temperature 36 ??C (96.8 ??F) 01/14/2024 11:18 AM CDT Respiratory Rate 16 01/14/2024 11:18 AM CDT Oxygen Saturation 97% 05/23/2021 10:30 PM TRENCH PIPE LAYER HELPER Inhaled Oxygen Concentration - - Weight 102 kg (225 lb 10.3 oz) 01/14/2024 11:18 AM CDT Height 169 cm (5' 6.54) 01/14/2024 11:18 AM CDT Body Mass Index 35.84 01/14/2024 11:18 AM CDT Plan of Treatment Health Maintenance Due Date Last Done Comments CT Colonography 1965 Cervical Cancer Screening 1965 Cologuard 1965 Colonoscopy 1965 Colorectal Cancer Screening 1965 FIT 1965 Hepatitis C Screening 1965 Visit: Medicare Annual Wellness 1965 Zoster Vaccines (1 of 2) 2015 Depression Screening (Annual PHQ-2) 07/08/2023 COVID-19 Vaccine ( season) 2024 04/06/2022, 11/21/2020, 10/22/2020 Influenza Vaccine (#1) 2024 0, 05/07/2020, 04/01/2020, Additional history exists Mammogram 06/12/2024 06/12/2023, 04/08, 05/02/2022, Additional history exists Office Visit for Blood Pressure Check / Re-check 01/13/2025 01/14/2024 Visit: Chronic Disease, age 18+ 01/13/2025 01/14/2024, 01/14/2024 Fasting Glucose for Diabetes Screening 10/24/2026 10/25/2023, 09/23/2022, 08/10/2022, Additional history exists Lipid (Cholesterol) Screening 10/24/2028 10/25/2023, 09/23/2022, 02/12/2022, Additional history exists DTaP,Tdap,and Td Vaccines (11 - Td or Tdap) 08/23/2033 08/23/2023, 08/24/2011, 11/29/2009, Additional history exists HIV Screening Completed 01/24/2006 Hepatitis B Vaccines Completed 04/24/2016, 04/24/2016, 08/25/2015, Additional history exists Pneumococcal vaccine (0-64 years) Aged Out 09/02/2017 No longer eligible based on patient's age to complete this topic Procedures Procedure Name Priority Date/Time Associated Diagnosis Comments COMPREHENSIVE METABOLIC PANEL, S/P Routine 01/06/2013 12:27 PM CDT OUTSIDE MG MAMMOGRAM Routine 08/03/2008 10:27 AM TRENCH PIPE LAYER HELPER from Last 3 Months or Most Recently Relevant to Health Maintenance Results * (ABNORMAL) CMP (Comprehensive Metabolic Panel) (01/06/2013 12:27 PM CDT) Total Protein, S 7.6 6.4 - 8.2 GDL POWERCHART Albumin, S 4.4 3.2 - 5.2 GDL POWERCHART Sodium, S 135 135 - 145 MMOLL POWERCHART Potassium, S 3.8 3.5 - 5.0 MMOLL POWERCHART Chloride, S 98 98 - 107 MMOLL POWERCHART CO2 Total 24 21 - 32 MMOLL POWERCHART Glucose 104 70 - 139 MGDL POWERCHART BUN (Blood Urea Nitrogen), S 8 5 - 25 MGDL POWERCHART Creatinine 0.5(L) 0.6 - 1.2 MGDL POWERCHART Calcium, Total, S 9.4 8.9 - 10.1 MGDL POWERCHART Alkaline Phosphatase, S 122(H) 35 - 104 UL POWERCHART Aspartate Aminotransferase (AST), S 20 15 - 37 UL POWERCHART Alanine Amniotransferase, LD 23 0 - 40 UL POWERCHART Bilirubin, Total, S 0.2 0.0 - 1.0 MGDL POWERCHART Anion Gap 16 7 - 16 MMOLL POWERCHART HXeGFR (MDRD) >60 >=60 POWERCHART Comment: Results are in mL/min/1.73m squared CKD Stage I: ? GFR > 90 CKD Stage II: ?GFR 60 to 89 CKD Stage III: ? GFR 30 to 59 CKD Stage IV: ? GFR 15 to 29 CKD Stage V: ?GFR < 15 or Dialysis eGFR Black/ >60 >=60 POWERCHART Blood 01/06/2013 12:2 7 PM CDT Rich Rodriguez D.O. LAB BLOOD ADD-ON POWERCHART * Outside MG Mammogram (08/03/2008 10:27 AM TRENCH PIPE LAYER HELPER) 08/03/2008 10:2 7 AM TRENCH PIPE LAYER HELPER Addenda Addendum by ProviderIona M.D. on 08/03/2008 10:27 AM TRENCH PIPE LAYER HELPER ODM^^^MCR XR MAMMO BILAT SCREEN FFDM 08/03/2008 10:27:00 Historical Provider IMG BI PROCEDURES [facility] [address] [place] [address] from Last 3 Months or Most Recently Relevant to Health Maintenance Care Teams Pilot Plant Operator Helper Relationship Specialty Start Date End Date Madyson Cordon M.D. [address] [place] [address] [id number] [phone] PCP - General Family Medicine 12/31/23
--- OUTSIDE RECORDS SUMMARY | 2024-03-26 21:02 | XMS_ITS | Clinical Summary ---
Author Organization [facility] Address [address] [place] [address] Care Team Providers Care Tempering Oven Operator Name Role Phone Needs Pcp, Assignment Primary Care Provider Source Comments You are receiving this document as you are listed as the primary care provider,follow-up provider, or the patient has been referred to you for consultation.This is in compliance with the Medicare and[facility] EHR Incentive [facility],which states Providers who transition their patient to another setting of careor provider of care or refers their patient to another provider of care shouldprovide summary care record for each transition of care or referral. [employer] Allergies Active Allergy Reactions Criticality Noted Date Comments Amlodipine Edema,generalized 10/12/2015 PN: edema Cefaclor Rash Low 10/12/2015 Ceftriaxone 03/12/2002 rash Cephalosporins 03/12/2002 rash Erythromycin Swelling 10/12/2015 PN: Tongue and throat swelling Quetiapine Other, see comments 10/12/2015 PN: Weight gain, sleep apnea, irregular heart beat, high blood pressure from this medication Sulfamethoxazole-Trimeth oprim Rash Low 10/12/2015 Medications Medication Sig Dispensed Refills Start Date End Date Status blood glucose (ACCU-CHEK ACTIVE STRIPS) test stripIndications:Ty pe 2 diabetes mellitus without complication, without long-term current use of insulin (HRC) Use to test daily. Please disp to match meter. 100 Strip 11 12/26/2018 Active letrozole (FEMARA) 2.5 MG tablet TK 1 T PO QD 1 05/01/2019 Active aspirin 81 MG chewable tablet Take 1 Tablet by mouth daily. 90 Tablet 08/15/2020 Active Additional Information Patient not taking.Reported on 08/04/2021 lisinopril (ZESTRIL) 10 MG tablet Take 1 Tablet by mouth daily. 30 Tablet 01/23/2021 Active metFORMIN XR (FORTAMET) 1000 MG ER tablet Take 1 Tablet by mouth two times a day with meals. 60 Tablet 01/23/2021 Active rosuvastatin (CRESTOR) 20 MG tabletIndications:H yperlipidemia, unspecified hyperlipidemia type (HRC) Take 1 Tablet by mouth daily. 30 Tablet 01/23/2021 Active paliperidone palmitate ER (INVEGA SUSTENNA) 78 MG/0.5ML injectionIndication s:Psychosis Inject 0.5 mL intramuscularly every 4 weeks. Indications: Psychosis 0.5 mL 01/30/2021 Active Additional Information Patient not taking.Reported on 02/01/2023 TRULICITY 0.75 MG/0.5ML injection penIndications:Type 2 Diabetes Mellitus Inject 1.5 mg subcutaneously once a week. Indications: Type 2 Diabetes 02/14/2021 Active ALBUterol sulfate HFA 108 (90 Base) MCG/ACT inhaler Inhale 1-2 Puffs every 4 hours as needed for Wheezing. 1 Each 5 06/22/2021 Active ARIPiprazole (ABILIFY) 10 MG tabletIndications:S chizophrenia Take 10 mg by mouth daily. Indications: Schizophrenia Active blood glucose (ACCU-CHEK GUIDE) test stripIndications:Ty pe 2 diabetes mellitus without complication, without long-term current use of insulin (HRC) USE TO TEST DAILY 100 Strip 11 02/11/2022 Active Active Problems Problem Noted Date Diagnosed Date HLD (hyperlipidemia) 12/26/2018 Overview (06/17/2019): CVD risk calculated at 3.42 % as of 06/17/2019 Hypertrophy of right masseter muscle 12/26/2018 Right thyroid nodule 12/26/2018 Overview (01/01/2019): US in December 2018 0.8 cm solid hypoechoic nodule in the right upper thyroid with punctate echogenic foci compatible with a TI-RADS 5 nodule. Annual follow-up for 5 years is recommended to document stability. Next thyroid US in 2023 Chronic low back pain 12/26/2018 Onychomycosis of toenail 12/26/2018 Other specified depressive episodes 11/27/2017 Vaginal atrophy 06/14/2017 Other specified eating disorder 10/24/2016 Type 2 diabetes mellitus wit hout complication, without long-term current use of insulin 10/24/2016 Female pelvic pain 10/25/2015 Schizoaffective disorder 04/10/2013 Asthma 04/23/2002 Essential hypertension 03/12/2002 Overview (04/07/2015): [facility] Tourette's disorder 03/12/2002 Pruritic disorder 03/12/2002 Overview (04/07/2015): [facility] Breast cancer Overview (02/08/2016): Right Breast CA Psychiatric problem Overview (08/04/2021): Depression, ?schizoaffective d/o Immunizations Name Administration Dates Next Due DT Ped 12/13/1987 Flu Vac (3+ yrs) 08/24/2005 HepA-HepB (TWINRIX, 18+ yrs) 04/24/2016 HepB Adult (Engerix-B, 20+ y rs, 3 dose series) 08/25/2015,06/23/2015 Influenza IIV4 (Quadrivalent ) 0.5mL (08910) 05/07/2020,04/23/2018,03/12/2017,2015,06/23/2015,05/19/2013,04/22/2007,1 07/14/2000 Influenza aIIV3 65+ Years (Fluad) 08/24/2005 Influenza, Unspecified Formulation 07/27,06/06/2006,08/24/2005,2002,06/06/1989 PPSV23 (Pneumovax) 09/02/2017 Pfizer Monovalent 12+ Purple Top 11/21/2020,10/06 TB Skin Test (PPD) 04/12/2008 TB Test - Historical 04/12/2008 Td 11/05/1999, 0,07/08/1999,1999 Tdap 08/24/2011,11/29/2009,01/06/2007 Family History Medical History Relation Name Comments Diabetes Father 1 onset in his 50's Heart Attack Mother 1 started at 50 High Blood Pressure Mother 1 since her 30's Other Mother 1 heavy bleedin g at delivery Heart Attack Maternal Grandfather of CA at 65 Heart Attack Paternal Grandfather of heart attack 80 Amblyopia/Strabismus Negative Family History Blindness Negative Family History Glaucoma Negative Family History Macular Degeneration Negative Family History Retinal Detachment Negative Family History Relation Name Status Comments Father 1 Alive alive at 66 Father 2 Alive Mother 1 Alive alive at 66 Mother 2 Alive Mi in early 5 0's Maternal Grandfather Paternal Grandfather Social History Tobacco Use Types Packs/Day Years Used Date Smoking Tobacco: Never Smokeless Tobacco: Never Alcohol Use Standard Drinks/Week Comments Not Currently 0 (1 standard drink = 0.6 oz pur e alcohol) 1-2 times per year AUDIT-C Answer Date Recorded Frequency of Alcohol Consumption Never 01/22/2019 Average Number of Drinks Not on file 019 Frequency of Binge Drinking Not on file 01/05 Sex and Gender Information Value Date Recorded Sex Assigned at Not on file Gender Identity Not on file Sexual Orientation Not on file Last Filed Vital Signs Vital Sign Reading Time Taken Comments Blood Pressure 126/72 03/23/2021 7:38 PM CDT Pulse 101 03/23/2021 7:38 PM CDT Temperature 37 ??C (98.6 ??F) 03/23/2021 7:38 PM CDT Respiratory Rate 20 03/23/2021 7:38 PM CDT Oxygen Saturation 98% 03/23/2021 7:38 PM CDT Inhaled Oxygen Concentration - - Weight 104.1 kg (229 lb 6.4 oz) 01/19/2021 1:30 AM CDT Height 170.2 cm (5' 7) 01/19/2021 1:30 AM CDT Body Mass Index 35.93 01/19/2021 1:30 AM CDT Plan of Treatment Health Maintenance Due Date Last Done Comments Hep C Screening (Preventive Services) 1965 Zoster/Shingles (1 of 2) 2015 HepA (2 of 3 - Hep A Twinrix risk 3-dose series) 05/22/2016 04/24/2016, 04/24/2016 FIT Colon Cancer Screening 01/11/2018 01/11/2017 Pneumococcal (2 - PCV) 09/02/2018 09/02/2017 Cervical Cancer Screening 10/11/2018 10/12/2015 Diabetes: Eye Exam 03/08/2019 03/08/2018 (C ompleted), 03/30/2002, 03/30/2002 Diabetes: Foot Exam 12/27/2019 12/26/2018 (Completed ) Diabetes: Urine Microalbumin 12/27/2019 12/26/2018 Diabetes: Creatinine 08/17/2021 08/17/2020, 06/29/2019, 12/26/2018, Additional history exists Diabetes: HGBA1C 11/07/2022 08/10/2022, 02/2022, 08/17/2020, Additional history exists Mammogram 05/02/2023 05/02/2022, 07/08, 05/07/2019, Additional history exists Medicare Annual Wellness Visit 07/08/2023 08/09/2020, 06/12/2019 COVID-19 Vaccine ( season) 2024 04/06/2022, 11/21/2020, 10/22/2020 Influenza (#1) 2024 05/07/2020, 03/09, 04/23/2018, Additional history exists Diabetes: Lipid Panel 08/17/2025 08/17/2020 , 09/28/2019, 06/17/2019, Additional history exists DTaP/Tdap/Td (10 - Tdap) 08/23/2033 024, 08/24/2011, 11/29/2009, Additional history exists HepB Completed 04/24/2016, 08/08, 06/23/2015 HIV Screening (Preventive Services) Completed 12/26/2018 Hib Aged Out No longer eligi ble based on patient's age to complete this topic IPV (Polio) Aged Out No longer eligi ble based on patient's age to complete this topic MCV4 Aged Out No longer eligi ble based on patient's age to complete this topic Procedures Procedure Name Priority Date/Time Associated Diagnosis Comments CREATININE / GFR Routine 08/17/2020 8:30 AM [employer]OG[employer]ODU[employer] MANAGER Type 2 diabetes mellitus without complication, without long-term current use of insulin (HRC) Essential hypertension LIPID PANEL & DIRECT LDL (IF NEEDED) Routine 08/17/2020 8:30 AM CAT[employer]OG[employer] AND [employer] PRODUCTS MANAGER Hyperlipidemia, unspecified hyperlipidemia type HGB A1C Routine 08/17/2020 8:30 AM CAT[employer]OG[employer] AND SPECIAL PRODUCTS MANAGER Type 2 diabetes mellitus without complication, without long-term current use of insulin (HRC) MAMMOGRAM SC 07/21/2020 ALBUMIN/CREAT RATIO Routine 12/26/2018 8:25 AM CDT Type 2 diabetes mellitus without complication, without long-term current use of insulin (HRC) HIV 1/2 AG/AB 4TH GEN Routine 12/26/2018 8:17 AM CDT Screening for HIV (human immunodeficiency virus) ANATOMICAL PATH LIQUID BASED Routine 10/12/2015 2:07 PM CDT from Last 3 Months or Most Recently Relevant to Health Maintenance Results * Lipid Panel and Direct LDL(If Needed) (08/17/2020 8:30 AM [facility]) Cholesterol 184 0 - 199 mg/dL 08/17/2020 9:37 AM [facility] Triglyceride 125 <=149 mg/dL 08/17/2020 9:37 AM [facility] HDL Cholesterol 50 >=40 mg/dL 9:37 AM [facility] LDL, Calculated 109 <130 mg/dL 9:37 AM [facility] Non HDL Chol, Calculated 134 mg/dL 08/17/2020 9:37 AM [facility] Cholesterol/HDL Ratio 3.7 08/17/2020 9:37 AM [facility] Hours Fasting 12 08/17/2020 9:37 AM [facility] Blood Venipuncture / Unknown 08/17/2020 8:30 AM [facility] 08/17/2020 8:30 AM CATALOGUE AND [employer] PRODUCTS MANAGER Ju Posada APRN, CNP LAB_1 Performing Organization Address [facility]/ZIP Co de Phone Number [facility] [address] [place] [address], [facility] [phone] * Creatinine / GFR (08/17/2020 8:30 AM CATALOG[employer] AND [employer] PRODUCTS MANAGER) Creatinine 0.60 0.55 - 1.02 mg/dL 08/17/2020 9:37 AM CATALOGUE AND SPECIAL PRODUCTS MANAGER [facility] GFR, Estimated >60 >60 mL/min/1.7 3m2 08/17/2020 9:37 AM CATALOGUE AND SPECIAL PRODUCTS MANAGER [facility] Blood Venipuncture / Unknown 08/17/2020 8:30 AM [employer]OG[employer] PRODUCTS MANAGER 08/17/2020 8:30 AM CAT[employer]OG[employer] PRODUCTS MANAGER Ju Posada APRN, CNP LAB_1 Performing Organization Address [facility] Co de Phone Number [facility] [address] [place] [address], [facility] [phone] * (ABNORMAL) Hgb A1C (08/17/2020 8:30 AM CATALOG[employer] AND [employer] PRODUCTS MANAGER) Hemoglobin A1C 6.5(H) <=5.6 % 08/17/2020 2:06 PM CATALOGUE AND SPECIAL PRODUCTS MANAGER [facility] Blood Venipuncture / Unknown 08/17/2020 8:30 AM CATALOGUE AND SPECIAL PRODUCTS MANAGER 08/17/2020 8:30 AM CATALOGUE AND SPECIAL PRODUCTS MANAGER Narrative [facility] - 08/17/2020 2:06 PM CATALOGUE AND SPECIAL PRODUCTS MANAGER For patients not previously diagnosed with diabetes: 5.7-6.4%: Increased risk for diabetes 6.5% and greater: Diagnostic for diabetes For patients diagnosed with diabetes: <8.0%: Goal of therapy for ages 18-75 Clinicians may recommend a higher or lower goal for specific individuals. Ju Posada APRN, CNP LAB_1 Performing Organization Address City/[facility]/ZIP Co de Phone Number [facility] [address] [address], [facility] [phone] * MAMMOGRAM SC (07/21/2020) Interface Provider MD AMBRIZ/OTHER/AR * Microalbumin/Creatinine Ratio (12/26/2018 8:25 AM CDT) Albumin, Urine, Random 9.6 mg/L 12/26/2018 9:15 AM CDT [facility] Creatinine, Urine, Random 89 >20 mg/dL 12/26/2018 9:15 AM CDT [facility] Albumin/Creati nine Ratio, Urine, Random 11 <30 mg/g 12/26/2018 9:15 AM CDT [facility] Urine,random 12/26/2018 8:25 AM CDT 12/26/2018 8:25 AM CDT Huyen Regalado PA-C LAB_1 Performing Organization Address City/[facility]/ZIP Co de Phone Number [facility] [address] [place] [address] [phone] * HIV 1/2 Ag/Ab 4th Generation (12/26/2018 8:17 AM CDT) HIV 1/2 Antigen/Antib summer (4th generation) Negative (Non Reactive) Negative (Non Reactive) 12/26/2018 1:09 PM CDT [facility] Comment:HIV-1 p24 Antigen an d HIV-1/HIV-2 Antibody not detected Blood Venipuncture / Unknown 12/26/2018 8:17 AM CDT 12/26/2018 8:17 AM CDT Huyen Regalado PA-C LAB_1 [facility] [address] * Pap Smear (10/12/2015 2:07 PM CDT) 10/12/2015 2:07 PM CDT Narrative HP CONVERSION - 10/18/2015 4:00 PM CDT FINAL GYNECOLOGICAL CYTOLOGY REPORT Pathology #: [id number] ?Date Obtained: 10/12/2015 ? Date Received: 10/13/2015 INTERPRETATION/RESULTS: Negative for Intraepithelial Lesion or Malignancy. SPECIMEN ADEQUACY: Satisfactory for Evaluation. ??No endocervical cells/transformation zone component present. Verified on 10/18/2015 ??by KAITLIN TAPIA(ASCP) (electronic signature) CLINICAL NOTES: ?Abnormal bleeding: No, LMP: 07/2014, Menstrual status: None Apply, ?Current form of therapy: None apply LIQUID BASED PAP SMEAR SPECIMEN TYPE: ?ROUTINE CERVICAL PAP TEST PLEASE NOTE: The pap smear is a screening test designed to aid in the detection of cervical cancer and its precursor lesions. It is not a diagnostic procedure and should not be used as the sole means of detecting cervical cancer. Both false-positive and false-negative reports may occur. Performed at [address] [address] Transcriptions 08/15/2016 7:40 PM CSTNotes Recorded by Megan Holly RN on 10/19/2015 at 3:52 PMNormal Pap letter sent. Daniel Huntley MD LAB_1 HP CONVERSION from Last 3 Months or Most Recently Relevant to Health Maintenance Advance Directives * Full Code (Latest Code Status on File) Date Activated Date Inactivated Comments 01/19/2021 1:34 AM 01/23/2021 3:38 PM * Full Code Date Activated Date Inactivated Comments 08/23/2018 3:35 PM 10/01/2018 3:57 PM Care Teams Tempering Oven Operator Relationship Specialty Start Date End Date Needs Pcp, [place] [address] PCP - General 02/01/23
--- OUTSIDE RECORDS SUMMARY | 2024-03-26 21:02 | XMS_ITS | Encounter Summary ---
Author Organization [facility] Address [address] [place] [address] Care Team Providers Care Doctor Assistant Name Role Phone Needs Pcp, Assignment Primary Care Provider [phone] Encounter Details Date Type Department Care Team (Late st Contact Info) Description 02/05/2013 Outside Hospital External to External, [place] [address] DISCHARGE SUMMARY Social History Tobacco Use Types Packs/Day Years Used Date Smoking Tobacco: Former Comments:never smoked for ve ry long Alcohol Use Standard Drinks/Week Comments Not Asked 0 (1 standard drink = 0.6 oz pur e alcohol) Sex and Gender Information Value Date Recorded Sex Assigned at Not on file Gender Identity Not on file Sexual Orientation Not on file documented as of this encounter Progress Notes * External, Provider - 02/05/2013 12:00 AM CDT documented in this encounter Plan of Treatment Not on file documented as of this encounter Visit Diagnoses Not on filedocumented in this encounter Additional Health Concerns Infection Onset Date Last Indicated Resolved Time R/O COVID19 03/23/2021 03/23/2021 03/23/2021 8:06 PM CDT documented as of this encounter Care Teams Doctor Assistant Relationship Specialty Start Date End Date Needs Pcp, Assignment [place], [place] [id number] PCP - General 02/01/23 documented as of this encounter
--- OUTSIDE RECORDS SUMMARY | 2024-03-26 21:02 | XMS_ITS | Encounter Summary ---
Author Organization [facility] Address [address] [place] [id number] Care Team Providers Care Ball Machine Operator Name Role Phone Madyson Cordon M.D. Primary Care Provider [phone] Reason for Visit * Reason Comments Annual Exam Establish care . Was doctoring in [place]. Has irregular heart rate and missing a lung. Hx asthma and weight loss. type 2 diabetic * Appointment Request (Routine) - Closed Specialty Diagnoses / Procedures Referred By James flower Referred To Contact Family Medicine Referral ID Status Reason Start Date Expiration Date Visits Re quested Visits Authorized [id number] Closed 12/31/2023 12/30/2024 1 1 Encounter Details Date Type Department Care Team (Latest Contact Info) Description 01/14/2024 11:30 AM CDT Comprehensive Visit Department of Family Medicine, [facility], in [place], [place] [address] [place] [phone] Madyson Cordon M.D. [address] [place] [id number] Well Adult Examination Normal (Primary Dx); Schizophrenia Paranoid (HCC); Asthma Mild Persistent (HCC); Diabetes Mellitus Type 2 (HCC); Hypertension Essential Primary; Hyperlipidemia; Obesity Body Mass Index 30-39.9 Adult; Cancer Breast Personal History Social History Tobacco Use Types Packs/Day Years [...] on file documented as of this encounter Last Filed Vital Signs Vital Sign Reading Time Taken Comments Blood Pressure 109/74 01/14/2024 11:18 AM CDT av erage Pulse 96 01/14/2024 11:18 AM CDT Temperature 36 ??C (96.8 ??F) 01/14/2024 11:18 AM CDT Respiratory Rate 16 01/14/2024 11:18 AM CDT Oxygen Saturation - - Inhaled Oxygen Concentration - - Weight 102 kg (225 lb 10.3 oz) 01/14/2024 11:18 AM CDT Height 169 cm (5' 6.54) 01/14/2024 11:18 AM CDT Body Mass Index 35.84 01/14/2024 11:18 AM CDT documented in this encounter H&P Notes * Madyson Cordon M.D. - 01/14/2024 11:30 AM CDT SUBJECTIVE CHIEF COMPLAINT / REASON FOR VISIT Annual Exam (Establish care . Was doctoring in [place]. Has irregular heart rate and missing a lung. Hx asthma and weight loss. type 2 diabetic ) HISTORY OF PRESENT ILLNESS Amparo Garcia is a 58 y.o. female with past medical history significant for type 2 diabetes, asthma, hyperlipidemia, schizoaffective disorder, borderline personality disorder obesity, h/o breast cancer (right lumpectomy in and left in both with radiation), who presents today for Annual Exam. Patient denies any symptoms today. She was receiving her care at [facility]. She has history of schizophrenia. She stated that she stopped seeing her psychiatrist 6 months ago.She was on Invega, she stated that she stopped taking the Invega 6 months ago. She does not think that she needs it. She contracted safety. She denies any hallucination. She was very reluctant to follow up with psych. She also refused to sign release of information to get her records from her Oncology, pulmonology or psych. She stated that she things she has been a case study for 12 different medical schools and researches. REVIEW OF SYSTEMS REVIEW OF SYSTEMS Pertinent positive ROS are listed above in HPI. ALLERGIES Olanzapine, Amlodipine, Ceftriaxone, Ciprofloxacin, Clotrimazole, Erythromycin, Fluoxetine, Penicillins, Pollen extracts, Quetiapine, Sulfa (sulfonamide antibiotics), Trimethoprim, Ziprasidone, Cephalosporins, and Sulfamethoxazole-trimethoprim PAST MEDICAL HISTORY Past Medical History: Diagnosis Date Asthma (HCC) Diabetes Mellitus Type 2 With Other Complication (HCC) Hyperlipidemia Hypertension Essential Primary Obesity Body Mass Index 30-39.9 Adult Schizophrenia Paranoid (HCC) PAST SURGICAL HISTORY Past Surgical History: Procedure Laterality Date LUMPECTOMY OF BREAST N/A Lumpectomy of breast [employer] HISTORY No LMP recorded. FAMILY HISTORY No family history on file. SOCIAL HISTORY Social History Socioeconomic History Marital status: Single Tobacco Use Smoking status: Never Smokeless tobacco: Never Substance and Sexual Activity Alcohol use: Yes Drug use: Not Currently Sexual activity: Defer OBJECTIVE BP 109/74 (BP Location: Right arm, Patient Position: Sitting, Cuff Size: Large) Comment: average Pulse 96 Temp 36 ??C (Temporal) Resp 16 Ht 169 cm Wt 102 kg BMI 35.84 kg/m?? PHYSICAL EXAMINATION General: Alert, pleasant female appearing in no acute distress. Neuro: Oriented x 3, responds appropriately to questions and follows commands without difficulty. Pupils equal and reactive to light. Cranial nerves II-XII grossly intact. EOMs intact. Muscle tone and strength normal and equal bilaterally without weakness or involuntary movements. Sensation intact to light touch in all extremities. Head: Normocephalic, atraumatic. Eyes: Sclerae clear without injection, conjunctivae without drainage, erythema or matting. ALLYSSA. Ears: Normal auditory canals and external ears. Tympanic membranes pearly bilaterally. Nontender. Oropharynx: Moist and pink without exudate. Normal buccal mucosa. Dental hygiene adequate. Neck: Supple without lymphadenopathy. No thyromegaly or carotid bruits. Heart: Normal S1, S2 with regular rate and rhythm. No murmurs, rubs, or clicks heard. Lungs: Clear to auscultation bilaterally posteriorly without rhonchi, wheezes, or crackles. No cough on exam today. Respirations are easy and unlabored. Breasts: breasts appear normal, no suspicious masses, no skin or nipple changes or axillary nodes, patient declines to have breast exam. Abdomen: Soft, nondistended, nontender to palpation without palpable masses or organomegaly. Genitourinary: Musculoskeletal: Back is straight and non-tender, full range of motion of upper and lower extremities. Feet: Good pedal pulses, no lesions, nail hygiene good. Extremities: No upper or lower extremity edema or cyanosis. Skin: Warm and dry without rashes on the visible areas. Psychiatric: Appropriate mood and affect. Makes good eye contact. Dressed appropriately. Contributes meaningfully to conversation. ASSESSMENT / PLAN #1 Well Adult Examination Normal Preventive care discussed with the patient. Declined immunization. Mammogram was in June withinnormal limit. She reported that her cervical cancer screening was 2 years ago, done by OBGYN. Discussed colon cancer screening, patient deferred. She stated that her care was sufficient for today andshe does not want to do any further. #2 Schizophrenia Paranoid (HCC) Patient sounds to be paranoid today at her visit. We discussed referral to psych will return to herprevious psych, patient was very reluctant. We discussed that she needs her medication to help withher symptoms. Patient was very reluctant. She contracted safety. She denies suicidal homicidal ideation. #3 Asthma Mild Persistent (HCC) She is on albuterol as needed. #4 Diabetes Mellitus Type 2 (HCC) A1c in October was 6.0. She will continue metformin 1000 mg daily and Ozempic 2 mg weekly. Her urine microalbumin in October within normal limit. Diabetic foot exam within normal limit. She is currently on lisinopril. She was on Crestor She stated that her lung doctor advised her to stop Crestor because it affects her lungs. #5 Hypertension Essential Primary Blood pressure within normal limit. She is currently on lisinopril 10 mg daily #6 Hyperlipidemia Lipid panel done in October. She was on Crestor, #7 Obesity Body Mass Index 30-39.9 Adult Counseled about healthy diet and exercise. She will continue on Ozempic. #8 Cancer Breast Personal History It seems that she was seen by Oncology in June. Refused to sign release of information to get records. Mammogram in June was within normal limit. Madyson Cordon M.D. documented in this encounter Plan of Treatment Not on file documented as of this encounter Visit Diagnoses Diagnosis Well Adult Examination Normal- Primary Schizophrenia Paranoid (HCC) Asthma Mild Persistent (HCC) Diabetes Mellitus Type 2 (HCC) Hypertension Essential Primary Hyperlipidemia Obesity Body Mass Index 30-39.9 Adult Cancer Breast Personal History documented in this encounter Additional Health Concerns Assessment Noted Time PHQ-9 Depression Total Score: 6 06/24/20 13 12:33 PM HOOP MAKER HELPER MACHINE documented as of this encounter Care Teams Ball Machine Operator Relationship Specialty Start Date End Date Madyson Cordon M.D. [address] [place] [phone] PCP - General Family Medicine 12/31/23 documented as of this encounter
--- OUTSIDE RECORDS SUMMARY | 2024-03-26 21:02 | XMS_ITS | Clinical Summary ---
Author Organization [employer] [facility] Address [place], [place] [address] Care Team Providers Care Sand Conditioner Name Role Phone None, Provided Unavailable Unavailable Denzel Farrell Unavailable [phone] Arlene Pierce Gmitro TECHNOLOGY TEACHER Unavailable [phone] Unavailable [phone] Madyson Cordon [facility] Primary Care Provider Allergies Active Allergy Reactions Criticality Noted Date Comments Amlodipine Edema 01/15/2014 Cefaclor Rash Medium 02/26/2008 Erythromycin Rash,Tongue Swelling High 02/26/2008 Ziprasidone *Unknown 09/12/2020 Olanzapine Throat Swelling/Closing High 02/12/2022 Quetiapine *Unknown,Apnea 04/20/2015 Weight gain, sleep apnea, irregular heart beat, high blood pressure from this medication Weight gain, sleep apnea, irregular heart beat, high blood pressure from this medication Sulfamethoxazole-Trimet hoprim Rash Medium 02/26/2008 Quetiapine *Unknown 09/12/2020 Sulfa (Sulfonamide Antibiotics) Rash 08/10/2022 Medications Medication Sig Dispensed Refills Start Date End Date Status blood sugar diagnostic stripIndications: Type 2 diabetes mellitus without complication, without long-term current use of insulin (HC) Dispense item covered by pt ins. E11.9 NIDDM type II - Test 1 time/day. Patient states using AccuChek Galilea Meter 100 Each 3 2 Active blood-glucose meterIndications: Type 2 diabetes mellitus without complication, without long-term current use of insulin (HC) Dispense meter, test strips, lancets covered by pt ins. E11.9 NIDDM type II - Test 1 time/day 1 Each 2 Active semaglutide (Ozempic) 2 mg/3 mL penIndications:Ty pe 2 diabetes mellitus without complication, without long-term current use of insulin (HC) Inject 0.375 mL (0.25 mg) subcutaneous once weekly. 6 mL 2 4 Active blood sugar diagnostic (Accu-Chek Guide test strips) stripIndications: Type 2 diabetes mellitus without complication, without long-term current use of insulin (HC) Dispense item covered by pt ins. E11.9 IDDM type II - Test 1 time/day 100 Each 4 Active metFORMIN (GLUCOPHAGE XR) 500 mg Extended-Release tabletIndications :Type 2 diabetes mellitus without complication, without long-term current use of insulin (HC) Take 2 Tablets (1,000 mg) by mouth once daily. 180 Tablet 1 4 Active lisinopriL (PRINIVIL; ZESTRIL) 10 mg tabletIndications :Hypertension associated with diabetes (HC) Take 1 Tablet (10 mg) by mouth once daily. 90 Tablet 3 4 Active Blood Pressure Monitor KitIndications:Hy pertension associated with diabetes (HC) Frequency of testing: daily 1 Each 4 Active rosuvastatin (CRESTOR) 20 mg tabletIndications :Hyperlipidemia associated with type 2 diabetes mellitus (HC) Take 1 Tablet (20 mg) by mouth once daily. 90 Tablet 3 4 Active albuterol HFA (PRO-AIR; VENTOLIN; PROVENTIL) 90 mcg/actuation inhalerIndication s:Moderate persistent asthma without complication INHALE 2 PUFFS BY MOUTH EVERY FOUR TO SIX HOURS NEEDED 18 Each 2 4 Active fluticasone fur-umeclidinium- vilanterol (Trelegy Ellipta) 100-62.5-25 mcg inhalerIndication s:Mild persistent asthma without complication INHALE ONE PUFF BY MOUTH ONE TIME DAILY 180 Each 1 4 Active Ventolin HFA 90 mcg/actuation inhalerIndication s:Moderate persistent asthma without complication INHALE ONE OR TWO PUFFS BY MOUTH EVERY FOUR HOURS NEEDED FOR WHEEZING 18 g 3 03/17/20 24 Discontinued Trelegy Ellipta 100-62.5-25 mcg inhaler INHALE ONE PUFF BY MOUTH ONE TIME DAILY* 4 03/18/20 24 Discontinued Active Problems Problem Noted Date Diagnosed Date Pap smear for cervical cancer screening 04/12/20 22 Overview (04/12/2022): 02/2022 NIL/HPV Negative Plan: Pap and HPV testing due in 5 years Malignant neoplasm of female breast 12/12/2020 Hypertension associated with diabetes 09/10/2020 Chronic schizoaffective disorder 09/09/2020 Non-adherence to medical treatment 09/09/2020 Obesity (BMI 30-39.9) 10/29/2019 History of eating disorder 09/24/2017 Moderate persistent asthma 09/23/2017 Chronic bilateral low back p ain without sciatica -- attrib to gymnastics when younger and weight gain on psych meds 11/23/2016 Cyst of right ovary 11/22/2015 Type 2 diabetes mellitus without complication Hyperlipidemia associated with type 2 diabetes m ellitus 02/11/2015 PERSONAL HISTORY OF MALIGNANCY- BREAST 9 Cervical polyp 07/22/2008 Sleep apnea Overview (06/09/2014): severe. 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 HTN (hypertension) 05/08/2013 8 Obesity, unspecified 07/22/2008 016 Migraine 04/01/2008 07/07/2017 Unspecified essential hypertension 02/18/2008 02/07/2009 Overview (07/22/2008): ? Due to cymbalta Breast cancer 02/18/2008 07/22/2008 Malignant neoplasm of breast (female), unspecified site 07/23/2006 07/22/2008 Overview (07/22/2008): 12/12 diagnosed Lumpectomy and chemotherapy and radiation Treated at [facility] Had one mammogram in f/u only Past due f/u Breast cancer 04/25/2016 Overview (05/21/2013): infiltrating ductal carcinoma grade 3 er/pr neg,HER-2/federico neg Encounters Date Type Department Care Team Description 03/14/2024 Refill [facility] [place] [address] [place] [phone] Melanie Josue MD Refill Request (Trelegy Ellipta) 03/10/2024 Refill [facility] [address] [facility] [place] [address] Taina Jefferson PA Refill Request (Ozempic) 03/10/2024 Refill [facility] [place] [address] [place] [phone] Melanie Josue MD Refill Request (Albuterol Hfa) 02/21/2024 3:40 PM CDT - 02/21/2024 8:17 PM CDT Emergency [facility] [address] [place] [address] Charly Salazar PA Paranoia (HC) (Primary Dx); Delusions (HC) Discharge Disposition: Home Self Care 02/21/2024 Travel 02/04/2024 Telephone [facility] [address] [place] [address] Radha Rosas SHUTTLECOCK ASSEMBLER Refill Request (Trulicity/) from Last 3 Months Immunizations Name Administration Dates Next Due COVID-19 vaccine (OpenNews NTech 30mcg/0.3mL) PF, MDV 11/21/2020,10/22/2020 HepA-HepB (Twinrix) 04/24/2016 Hepatitis A, Unspecified 04/24/2016 Hepatitis B (Adult) 08/25/2015,06/23/2015 Hepatitis B, Unspecified 04/24/2016 Influenza, IIV3 (Age >=3 years) 03/12/2017,05/08 Influenza, IIV4 05/07/2020, 0,04/23/2018,2015,06/23/2015 Pneumococcal Poly,23-Valent (Pneumovax) 09/02/2017 TD, UNSPECIFIED 11/05/1999,07/08/1999 Td (Age >=7 Years) 11/05/1999,07/08/1999 Tdap 08/24/2011,11/29/2009,01/06/2007 Tuberculin (PPD) 04/12/2008 Family History Medical History Relation Name Comments Hypertension Brother 1 grover Obesity Brother 1 grover Alcohol/Drug Brother 2 nura Obesity Brother 2 nura Psychiatric illness Brother 2 nura Diabetes Father Hyperlipidemia Father Hypertension Father Obesity Father Hyperlipidemia Maternal Grandfather Stroke Maternal Grandmother Heart Disease Mother [place] Hypertension Mother Obesity Mother Hypertension Paternal Grandfather Cancer-colon Paternal Grandmother dx age 0ver 50 Good Health Sister Cancer No Family History Cancer-breast No Family History Cancer-ovarian No Family History Cancer-prostate No Family History Relation Name Status Comments Brother 1 grover Alive Brother 2 nura Alive Father Alive Maternal Grandfather COD - H eart attack Maternal Grandmother (Age 89) Mother Alive Paternal Grandfather (Age 79) CO D- Heart attack Paternal Grandmother (Age 101) Sister Alive Social History Tobacco Use Types Packs/Day Years Used Date Smoking Tobacco: Never Smokeless Tobacco: Never Tobacco Cessation:Counseling Given: Yes Alcohol Use Standard Drinks/Week Comments Not Currently 0 (1 standard drink = 0.6 oz pur e alcohol) Some not much PHQ-2 Answer Date Recorded PHQ-2 TOTAL SCORE 0 02/12/2022 Social Connections Answer Date Recorded Frequency of Communication with Friends and Fami ly 0 10/25/2023 Financial Resource Strain Answer Date R ecorded Difficulty of Paying Living Expenses 3 10/25/2023 Difficulty of Paying Living Expenses Not on file 10/25/2023 Food Insecurity Answer Date Recorded Worried About Running Out of Food in the Last Ye ar 1 10/25/2023 Transportation Needs Answer Date Record ed Lack of Transportation (Medical) 1 10/25/2023 Housing Stability Answer Date Recorded Unable to Pay for Housing in the Last Year 1 10/25/2023 Sex and Gender Information Value Date Recorded Sex Assigned at Not on file Gender Identity Not on file Sexual Orientation Not on file Obstetrics History Last Filed Vital Signs Vital Sign Reading Time Taken Comments Blood Pressure 155/91 02/21/2024 3:44 PM CDT Pulse 105 02/21/2024 3:44 PM CDT Temperature 36.4 ??C (97.5 ??F) 02/21/2024 3:44 PM CD T Respiratory Rate 16 02/21/2024 3:44 PM CDT Oxygen Saturation 98% 02/21/2024 3:44 PM CDT Inhaled Oxygen Concentration - - Weight 103.9 kg (229 lb) 02/21/2024 3:44 PM CDT Height 169.6 cm (5' 6.77) 02/21/2024 3:44 PM CD T Body Mass Index 36.11 02/21/2024 3:44 PM CDT Plan of Treatment Health Maintenance Due Date Last Done Comments HIV for age 15-65 1980 Zoster (shingles) series for age 50+ (1 of 2) 2015 Fecal testing non-DNA (FIT,FOBT,iFOBT) for age 45-75 01/11/2018 01/11/2017 Pneumococcal series for age 6-64 (2 of 2 - PCV) 09/02/2018 09/02/2017 Tetanus booster 08/24/2021 08/24/2011, 11/06, 01/06/2007, Additional history exists Depression screening for age 12+ 02/14/2023 02/14/2022, 02/12/2022, 02/08/2022, Additional history exists COVID-19 vaccine series ( season) 2024 04/06/2022, 11/21/2020, 10/22/2020 Influenza for age 50-64 03/08/2024 05/07/20 20, 04/01/2020, 04/23/2018, Additional history exists Mammogram for age 45-75 08/08/2024 08/08/19 24, 05/02/2022, 07/21/2020, Additional history exists BMI (ht and wt on same day) for age 18+ 10/24/2024 10/25/2023, 02/12/2022, 12/12/2020, Additional history exists Pap test for age 21-65 02/12/2027 , 02/12/2022, 11/16/2015 (Completed outside of [facility]), Additional history exists Lipids for age 45-75 10/24/2028 10/25/2023, 09/23/2022, 02/12/2022, Additional history exists Tdap Completed 08/24/2011, 11/06, 01/06/2007 Hepatitis B series for Diabetes Completed 04/24/2016, 04/24/2016, 08/25/2015, Additional history exists Hepatitis C screening for ag e 18-79 Completed 02/12/2022 Goals Goal Patient Goal Type Associated Problems Recent Progress Patient-Stated? Author BLOOD PRESSURE-MAINTA INS BP LESS THAN 130/80 Blood Pressure No Yanci De Los Santos MA BLOOD PRESSURE - MAINTAINS BP less than 140/90 Blood Pressure No Yanci De Los Santos MA Procedures Procedure Name Priority Date/Time Associated Diagnosis Comments LIPID PANEL W REFLEX MEASURED LDL Routine 10/25/2023 11:49 AM CDT Type 2 diabetes mellitus without complication, without long-term current use of insulin (HC) XR MAMMO BILAT SCREENING Routine 08/08/2023 3:31 PM PHARMACIST APPRENTICE Encounter for screening mammogram for malignant neoplasm of breast HPV HIGH RISK Routine 02/12/2022 4:22 PM CDT Pap smear for cervical cancer screening ANTI HCV Routine 02/12/2022 4:15 PM CDT Need for hepatitis C screening test OCCULT BLOOD IFOBT STOOL Routine 01/11/2017 2:54 PM CDT Screening for colon cancer from Last 3 Months or Most Recently Relevant to Health Maintenance Results * (ABNORMAL) LIPID PANEL W REFLEX MEASURED LDL (10/25/2023 11:49 AM CDT) CHOLESTEROL,TOTAL 222(H) 100 - 199 mg/dL 10/25/2023 8:53 PM CDT [facility] Comment: Cholesterol, Total Reference Ranges Desirable <200 mg/dL Borderline 200-239 mg/dL High >=240 mg/dL TRIGLYCERIDES 133 <150 mg/dL 10/25/2023 8:53 PM CDT [facility] HDL CHOLESTEROL 57 >40 mg/dL 8:53 PM CDT [facility] NON-HDL CHOLESTEROL 165(H) <145 mg/dl 10/25/2023 8:53 PM CDT [facility] CHOL/HDL RATIO 3.89 <4.50 10/25/2023 8:53 PM CDT [facility] LDL CHOLESTEROL 138(H) <=130 mg/dL 10/25/2023 8:53 PM CDT [facility] VLDL CHOLESTEROL 27 <=30 mg/dL 10/25/2023 8:53 PM CDT [facility] PROVIDER ORDERED STATUS RANDOM 10/25/2023 8:53 PM CDT [facility] Blood BLOOD SPECIMEN / Unknown Venipuncture / Unknown 10/25/2023 11:49 AM CDT 10/25/2023 11:51 AM CDT Taina LUNA CHEMISTRY [facility] [address] [place] [address], * XR MAMMO BILAT SCREENING (08/08/2023 3:31 PM PHARMACIST APPRENTICE) Anatomical Region Laterality Modality BREASTS, Breast Left, Breast Right Bilateral Mammography Impressions 08/08/2023 3:34 PM PHARMACIST APPRENTICE ??There is no radiographic evidence for malignancy. ??Recommend annual mammograms. MAMMOGRAM ASSESSMENT: ??ACR 1 Negative PATIENTS: You will also receive a letter with your examination results in an easy to read format. ??If you have questions about your results, please contact your referring provider. Narrative 08/08/2023 3:34 PM PHARMACIST APPRENTICE For Patients: As a result of the Century Cures Act, medical imaging exams and procedure reports are released immediately into your electronic medical record. You may view this report before your referring provider. If you have questions, please contact your health care provider. XR MAMMO BILAT SCREENING [[id number]] CLINICAL HISTORY: ??This is an asymptomatic 58 y.o. patient. INDICATION FOR EXAM: Mammogram Screening. TECHNIQUE: CC & MLO views were obtained. ??This study was evaluated with the assistance of Computer-Aided Detection. COMPARISON FILM: Yes 05/02/22 [facility] 07/21/20 [facility] FINDINGS: ??The breasts have scattered areas of fibroglandular density. There are no dominant masses, suspicious micro calcifications or areas of architectural distortion. Taina Jefferson PA MAMMO * HPV HIGH RISK (02/12/2022 4:22 PM CDT) TYPE 16 Negative Negative 02/15/2022 1:20 PM CDT [facility] TYPE 18 Negative Negative 02/15/2022 1:20 PM CDT [facility] OTHER HIGH RISK TYPES Negative Negative 02/15/2022 1:20 PM CDT [facility] Other (Cervical) Non-Blood / Unknown 02/12/2022 4:22 PM CDT 02/13/2022 5:52 PM CDT Narrative [facility] - 02/15/2022 1:20 PM CDT HPV types 16, 18, 31, 33, 35, 39, 45, 51, 52, 56, 58, 59, 66 and 68 DNA were undetectable or below the pre-set threshold. Methodology: [employer] S[employer]ie 4800 HPV Test Radha Rosas NP MICROBIOLOGY [facility] [address] [place] [address], * ANTI HCV (02/12/2022 4:15 PM CDT) HEPATITIS C ANTIBODY Non-React sonia Non-React sonia 02/13/2022 4:24 AM CDT [facility] Comment:Antibodies to HCV no t detected; does not exclude the possibility of exposure to HCV. Blood BLOOD SPECIMEN / Unknown Venipuncture / Unknown 02/12/2022 4:15 PM CDT 02/12/2022 4:16 PM CDT Radha Rosas NP SEND OUTS [facility] [address] [place] [address], * OCCULT BLOOD IFOBT STOOL (01/11/2017 2:54 PM CDT) STOOL BLOOD ,IFOBT Negative Negative 01/11/2017 3:04 PM CDT [facility] Stool STOOL SPECIMEN / Unknown Non-Blood / Unknown 01/11/2017 2:54 PM CDT 01/11/2017 2:54 PM CDT Senthil Puentes MD LABORATORY [facility] from Last 3 Months or Most Recently Relevant to Health Maintenance Advance Directives * Full Code (Latest Code Status on File) Date Activated Date Inactivated Comments 09/24/2022 9:32 PM 10/24/2022 7:54 PM Question Answer Comments Code Status Discussion: Not Discussed * Full Code Date Activated Date Inactivated Comments 09/06/2020 4:25 PM 09/21/2020 3:15 PM Question Answer Comments Code Status Discussion: Not Discussed * Full Code Date Activated Date Inactivated Comments 09/23/2017 6:41 PM 10/14/2017 2:37 PM Question Answer Comments Code Status Discussion: Not Discussed * Full Code Date Activated Date Inactivated Comments 03/10/2008 4:42 PM 04/12/2008 3:59 PM * Full Code Date Activated Date Inactivated Comments 02/07/2008 10:12 AM 02/27/2008 4:34 PM Care Teams Sand Conditioner Relationship Specialty Start Date End Date Madyson Cordon MBBS [address] [place] [phone] PCP - General Family Practice 02/04/24 None, Provided . 05/21/13 Denzel Farrell [address] [place] [address] Psychiatry Psychiatry 01/11/17 PierceArlene, TECHNOLOGY TEACHER [address] [place] [address] Nurse Practitioner Clinical Nurse Specialist 04/29/19 Taina Weiss, GEOVANI [address] [place] [address] Registered Dietitian Risk Control Product Liability Director 04/29/19
--- OUTSIDE RECORDS SUMMARY | 2024-03-26 21:02 | XMS_ITS | Referral Summary ---
Author Organization [facility] Address [address] [place] [address] Care Team Providers Care Carpenter Wooden Tank Erecting Name Role Phone Madyson Cordon M.D. Primary Care Provider Source Comments Patient records contain information from all sites at [facility]. For routine questions regarding patient records, call [phone] during business hours, M-F 8:00 AM - 5:00 PM Central Time. Record requests for emergency care only can be directed to [phone] at any time.[facility] Encounters Date Type Department Care Team Description 03/10/2024 Orders Only [facility] PCP TH MNT Madyson Cordon M.D. 01/14/2024 11:30 AM CDT Comprehensive Visit Department of Family Medicine, [facility], [address] [place] [address] Madyson Cordon M.D. Well Adult Examination Normal (Primary Dx); Schizophrenia Paranoid (HCC); Asthma Mild Persistent (HCC); Diabetes Mellitus Type 2 (HCC); Hypertension Essential Primary; Hyperlipidemia; Obesity Body Mass Index 30-39.9 Adult; Cancer Breast Personal History from Last 3 Months Allergies Active Allergy Reactions Criticality Noted Date [...] NOS Hypertension Chronic 08/24/2011 Overview (11/27/2016): Hypertension Immunizations Name Administration Dates Next Due DT, [...] CDT Oxygen Saturation 97% 05/23/2021 10:30 PM SPINNING AND WINDING SUPERVISOR Inhaled Oxygen Concentration - - Weight 102 kg (225 lb 10.3 oz) 01/14/2024 11:18 AM CDT Height 169 cm (5' 6.54) 01/14/2024 11:18 AM CDT Body Mass Index 35.84 01/14/2024 11:18 AM CDT Plan of Treatment Not on file Procedures Procedure Name Priority Date/Time Associated Diagnosis Comments COMPREHENSIVE METABOLIC PANEL, S/P Routine 01/06/2013 12:27 PM CDT OUTSIDE MG MAMMOGRAM Routine 08/03/2008 10:27 AM SPINNING AND WINDING SUPERVISOR from Last 3 Months or Most Recently [...] * Outside MG Mammogram (08/03/2008 10:27 AM SPINNING AND WINDING SUPERVISOR) 08/03/2008 10:2 7 AM SPINNING AND WINDING SUPERVISOR Addenda Addendum by ProviderIona M.D. on 08/03/2008 10:27 AM SPINNING AND WINDING SUPERVISOR ODM^^^MCR XR MAMMO BILAT SCREEN FFDM 08/03/2008 10:27:00 Historical Provider IMG BI PROCEDURES [facility] [address] [place] [address], [facility] from Last 3 Months or Most Recently Relevant to Health Maintenance Care Teams Carpenter Wooden Tank Erecting Relationship Specialty Start Date End Date Madyson Cordon M.D. [address] [place], [place] [address] [place] [phone] PCP - General Family Medicine 12/31/23
--- OUTSIDE RECORDS SUMMARY | 2024-03-26 21:02 | XMS_ITS ---
Author Organization [facility] Address [address] [place] [address] Care Team Providers Care Volunteer Patient Representative Name Role Phone Unavailable Unavailable Unavailable Surgery Details Not on file Complications Check Surgery Details section. Procedure Estimated Blood Loss Check Surgery Details section. Procedure Findings Check Surgery Details section. Procedure Specimens Taken Check Surgery Details section.
--- OUTSIDE RECORDS SUMMARY | 2024-03-26 21:02 | XMS_ITS | Encounter Summary ---
Author Organization [facility] Address [address] [place] [address] Care Team Providers Care Pearl Peller Name Role Phone Madyson Cordon M.D. Primary Care Provider [phone] Reason for Referral * Outpatient (Routine) - Authorized Specialty Diagnoses / Procedures Referred By James flower Referred To Contact Madyson Cordon M.D. [address] [place] [phone] [facility] Region Referral ID Status Reason Start Date Expiration Date V isits Requested Visits Authorized [id number] Authorized 03/10/2024 09/09/2025 1 1 Scheduling Instructions Nurse AWV Do not schedule prior to due date to ensure insurance coverage Visit: Medicare Annual Wellness Never done. * Outpatient (Routine) - Authorized Specialty Diagnoses / Procedures Referred By Contac t Referred To Contact Family Medicine Madyson Cordon M.D. [address] [place] [phone] [facility] Region Referral ID Status Reason Start Date Expiration Date V isits Requested Visits Authorized [id number] Authorized 03/10/2024 09/09/2025 1 1 Encounter Details Date Type Department Care Team (Late st Contact Info) Description 03/10/2024 Orders Only [facility] PCP [facility] MNT Madyson Cordon M.D. [address] [facility] [place] [address] Social History Tobacco Use Types Packs/Day Years Used Date Smoking Tobacco: Never Smokeless Tobacco: Never Alcohol Use Standard Drinks/Week Comments Yes 0 [...] as of this encounter Plan of Treatment Scheduled Referrals Name Type Priority Associated Diagnoses Orde r Schedule Family Medicine office visit (clinic) Outpatient Referral Routine Expected: 03/24/2024, Expires: 09/06/2024 Primary Care nurse visit (clinic) - [facility] [place] [facility]; Medicare Annual Wellness Outpatient Referral Routine Expected: 04/07/2024, Expires: 09/06/2024 documented as of this encounter Visit Diagnoses Not on filedocumented in this encounter Additional Health Concerns Assessment Noted Time PHQ-9 Depression Total Score: 6 06/24/20 13 12:33 PM CHILD CARE ATTENDANT documented as of this encounter Care Teams Pearl Peller Relationship Specialty Start Date End Date Madyson Cordon M.D. [address] [facility] [place] [phone] PCP - General Family Medicine 12/31/23 documented as of this encounter
--- OUTSIDE RECORDS SUMMARY | 2024-03-26 21:02 | XMS_ITS | Encounter Summary ---
Author Organization [facility] Address [address] [place] [address] Care Team Providers Care Pressure Supervisor Name Role Phone Needs Pcp, Assignment Primary Care Provider Encounter Details Date Type Department Care Team (Late st Contact Info) Description 02/05/2013 Correspondence [facility] [address] [place] [address] Mago Cantu MD MY AFTER CARE PLAN Social History Tobacco Use Types Packs/Day Years [...] as of this encounter Progress Notes * Mago Cantu MD - 02/05/2013 12:00 AM CDT documented in this encounter Plan of Treatment Not on file documented as of this encounter Visit Diagnoses Not on filedocumented in this encounter Additional Health Concerns Infection Onset Date Last Indicated Resolved Time R/O COVID19 03/23/2021 03/23/2021 03/23/2021 8:06 PM CDT documented as of this encounter Care Teams Pressure Supervisor Relationship Specialty Start Date End Date Needs Pcp, [place] [address] PCP - General 02/01/23 documented as of this encounter
== END 2024-03-26 21:02 | disposition home or self-care (01) ==
LOC: ED 21:00
PROVIDERS: Emergency Provider Internal Medicine; PCP Internal Medicine
DX: F25.9 Schizoaffective disorder, unspecified (principal)
CPT/HCPCS: 99283

== ENCOUNTER 2024-04-22 22:20 | Outpatient (CLI) | payer MEDICARE, MEDICAID, SELFPAY ==
--- OUTSIDE RECORDS SUMMARY | 2024-04-26 12:50 | XMS_ITS | Clinical Summary ---
Author Organization [facility] Address [address] [place] [address] Care Team Providers Care Commutator Assembler Name Role Phone Madyson Cordon M.D. Primary Care Provider [phone] Source Comments Patient records contain information from all sites at [facility]. For routine questions regarding patient records, call [phone] during business hours, M-F 8:00 AM - 5:00 PM Central Time. Record requests for emergency care only can be directed to [phone] at any time.[facility] Allergies Active Allergy Reactions Criticality Noted Date [...] 02/07/2023 Ziprasidone Other (see comments) 09/12/2020 Medications albuterol 90 mcg/actuation inhaler Inhale 1-2 puffs every 4 (four) hours as needed. 01/29/20 21 Active ibuprofen (ADVIL,MOTRIN) 200 mg tablet Take 1 tablet by mouth every 4 (four) hours as needed. 12/25/19 13 Active lisinopriL (PRINIVIL,ZEST RIL) 10 mg tablet Take 1 tablet by mouth daily. 01/24/20 21 Active paliperidone palmitate (Invega Sustenna) 234 mg/1.5 mL injection Inject 117 mg intramuscularly every 30 (thirty) days. 06/24/20 13 Active rosuvastatin (CRESTOR) 20 mg tablet Take 1 tablet by mouth daily. 01/24/20 21 Active blood sugar diagnostic strips daily. 02/12/20 22 Active Trelegy Ellipta 100-62.5-25 mcg inhaler INHALE 1 PUFF BY MOUTH EVERY DAY, AT THE SAME TIME EACH DAY Active Ozempic 0.25 mg or 0.5 mg (2 mg/3 mL) injection Inject 0.25 mg under the skin over 168 hr. 10/25/19 24 Active metFORMIN (Glucophage) 500 mg tablet 04/08/2015 Metformin Oral PO 2.0 TABLET(S) daily 04/08/2015 active 04/08/20 15 Active Active Problems Problem Noted Date Diagnosed Date Schizophrenia Paranoid 12/24/2012 Overview (11/27/2016): Paranoid schizophrenia NOS Hypertension Chronic 08/24/2011 Overview (11/27/2016): Hypertension Encounters Date Type Department Care Team Description 03/10/2024 Orders Only [facility] PCP TH Madyson Catherine M.D. from Last 3 Months Immunizations Name Administration [...] Recorded Dental: Regular Dentist Unknown 09/07/19 21 Comments Unknown Sex and Gender Information Value Date Recorded Sex Assigned at Not on file Legal Sex Female 7:01 PM CHEMISTRY DEPARTMENT CHAIR Gender Identity Not on file Sexual Orientation Not on file Last Filed Vital Signs Vital Sign Reading Time Taken Comments Blood Pressure 109/74 01/14/2024 11:18 AM CDT av erage Pulse 96 01/14/2024 11:18 AM CDT Temperature 36 ??C (96.8 ??F) 01/14/2024 11:18 AM CDT Respiratory Rate 16 01/14/2024 11:18 AM CDT Oxygen Saturation 97% 05/23/2021 10:30 PM CHEMISTRY DEPARTMENT CHAIR Inhaled Oxygen Concentration - - Weight 102 [...] 04/06/2022, 11/21/2020, 10/22/2020 Influenza Vaccine (#1) 2024 , 05/07/2020, 04/01/2020, Additional history exists Mammogram 06/12/2024 [...] OUTSIDE MG MAMMOGRAM Routine 08/03/2008 10:27 AM CHEMISTRY DEPARTMENT CHAIR from Last 3 Months or Most Recently [...] CDT Rich Rodriguez D.O. LAB BLOOD ADD-ON Final Resul t POWERCHART * Outside MG Mammogram (08/03/2008 10:27 AM CHEMISTRY DEPARTMENT CHAIR) 08/03/2008 10:2 7 AM CHEMISTRY DEPARTMENT CHAIR Addenda Addendum by ProviderIona M.D. on 08/03/2008 10:27 AM CHEMISTRY DEPARTMENT CHAIR ODM^^^MCR XR MAMMO BILAT SCREEN FFDM 08/03/2008 10:27:00 Historical Provider IMG BI PROCEDURES Final Resu lt Performing Organization Address City/[facility]/ZIP Co de Phone Number [facility] [address] [place] [address] from Last 3 Months or Most Recently Relevant to Health [place] [address] Care Teams Commutator Assembler Relationship Specialty Start Date End Date Madyson Cordon M.D. [address] [place] [phone] PCP - General Family Medicine 12/31/23
--- OUTSIDE RECORDS SUMMARY | 2024-04-26 12:50 | XMS_ITS | Clinical Summary ---
Author Organization [facility] [facility] Address [place], [place] [address] Care Team Providers Care Managing Broker Name Role Phone None, Provided Unavailable Unavailable Denzel Farrell Unavailable [phone] Arlene Pierce Gmitro VERMIN EXTERMINATOR Unavailable [phone] Unavailable [phone] Taina Jefferson Primary Care Provider [phone] Allergies Active Allergy Reactions Criticality Noted Date [...] Date End Date Status blood sugar diagnostic stripIndications:Ty pe 2 diabetes mellitus without complication, without long-term current use of insulin (HC) Dispense item covered by pt ins. E11.9 NIDDM type II - Test 1 time/day. Patient states using AccuChek Galilea Meter 100 Each 3 02/12/2022 Active blood-glucose meterIndications:Ty pe 2 diabetes mellitus without complication, without long-term current use of insulin (HC) Dispense meter, test strips, lancets covered by pt ins. E11.9 NIDDM type II - Test 1 time/day 1 Each 05/02/2022 Active semaglutide (Ozempic) 2 mg/3 mL penIndications:Type 2 diabetes mellitus without complication, without long-term current use of insulin (HC) Inject 0.375 mL (0.25 mg) subcutaneous once weekly. 6 mL 2 10/25/2023 Active blood sugar diagnostic (Accu-Chek Guide test strips) stripIndications:Ty pe 2 diabetes mellitus without complication, without long-term current use of insulin (HC) Dispense item covered by pt ins. E11.9 IDDM type II - Test 1 time/day 100 Each 10/25/2023 Active metFORMIN (GLUCOPHAGE XR) 500 mg Extended-Release tabletIndications:T ype 2 diabetes mellitus without complication, without long-term current use of insulin (HC) Take 2 Tablets (1,000 mg) by mouth once daily. 180 Tablet 1 10/25/2023 Active lisinopriL (PRINIVIL; ZESTRIL) 10 mg tabletIndications:H ypertension associated with diabetes (HC) Take 1 Tablet (10 mg) by mouth once daily. 90 Tablet 3 10/25/2023 Active Blood Pressure Monitor KitIndications:Hype rtension associated with diabetes (HC) Frequency of testing: daily 1 Each 10/25/2023 Active rosuvastatin (CRESTOR) 20 mg tabletIndications:H yperlipidemia associated with type 2 diabetes mellitus (HC) Take 1 Tablet (20 mg) by mouth once daily. 90 Tablet 3 10/28/2023 Active albuterol HFA (PRO-AIR; VENTOLIN; PROVENTIL) 90 mcg/actuation inhalerIndications: Moderate persistent asthma without complication INHALE 2 PUFFS BY MOUTH EVERY FOUR TO SIX HOURS NEEDED 18 Each 2 03/17/2024 Active fluticasone dar-huuubehwrssj-mr lanterol (Trelegy Ellipta) 100-62.5-25 mcg inhalerIndications: Mild persistent asthma without complication INHALE ONE PUFF BY MOUTH ONE TIME DAILY 180 Each 1 03/18/2024 Active Active Problems Problem Noted Date Diagnosed Date Pap smear for cervical cancer screening 04/12/20 Overview (04/12/2022): 02/2022 NIL/HPV Negative Plan: Pap [...] Lumpectomy and chemotherapy and radiation Treated at 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 [address] Taina Jefferson PA Refill Request (Ozempic) 03/10/2024 Refill [facility] [place] [address] [place] [phone] Melanie Josue MD Refill Request (Albuterol Hfa) 02/21/2024 3:40 PM CDT - 02/21/2024 8:[address] [facility] [address] [place] [place] [address] Charly Salazar PA Paranoia (HC) (Primary Dx); Delusions (HC) Discharge Disposition: Home Self Care 02/21/2024 Travel 02/04/2024 Telephone [facility] [address] [place] [address] Radha Rosas, TUNNEL MUCKER Refill Request (Trulicity/) from Last 3 Months Immunizations Name Administration Dates Next Due COVID-19 vaccine (Restore [employer] NTech 30mcg/0.3mL) PF, MDV 11/21/2020,10/22/2020 HepA-HepB (Twinrix) 04/24/2016 Hepatitis A, Unspecified 04/24/2016 Hepatitis B (Adult) 08/25/2015,06/23/2015 Hepatitis B, Unspecified 04/24/2016 Influenza, IIV3 (Age >=3 years) 03/12/2017,05/08 Influenza, IIV4 05/07/2020, 0,04/23/2018,2015,06/23/2015 Pneumococcal Poly,23-Valent (Pneumovax) 09/02/2017 TD, UNSPECIFIED 11/05/1999,07/08/1999 Td (Age >=7 Years) 11/05/1999,07/08/1999 Tdap 08/24/2011,11/29/2009,01/06/2007 Tuberculin (PPD) 04/12/2008 Family History Medical History Relation Name Comments Hypertension Brother 1 grover Obesity Brother 1 grovre Alcohol/Drug Brother 2 nura Obesity Brother 2 nura Psychiatric illness Brother 2 nura Diabetes Father Hyperlipidemia Father Hypertension Father Obesity Father Hyperlipidemia Maternal Grandfather Stroke Maternal Grandmother Heart Disease Mother [place] Hypertension Mother Obesity Mother Hypertension Paternal Grandfather [...] 02/12/2027 , 02/12/2022, 11/16/2015 (Completed outside of [facility]), Additional history exists Lipids for age 45-75 [...] MAMMO BILAT SCREENING Routine 08/08/2023 3:31 PM DATABASE ARCHITECT Encounter for screening mammogram for malignant neoplasm [...] 10/25/2023 8:53 PM CDT [facility] Comment: Cholesterol, Total Reference Ranges Desirable <200 mg/dL Borderline 200-239 mg/dL High >=240 mg/dL TRIGLYCERIDES 133 <150 mg/dL 10/25/2023 8:53 PM CDT [facility] HDL CHOLESTEROL 57 >40 mg/dL 8:53 PM CDT [facility] NON-HDL CHOLESTEROL 165(H) <145 mg/dl 10/25/2023 8:53 PM CDT [facility] CHOL/HDL RATIO 3.89 <4.50 10/25/2023 8:53 PM CDT [facility] LDL CHOLESTEROL 138(H) <=130 mg/dL 10/25/2023 8:53 PM CDT [facility] VLDL CHOLESTEROL 27 <=30 mg/dL 10/25/2023 8:53 PM CDT [facility] PROVIDER ORDERED STATUS RANDOM 10/25/2023 8:53 PM CDT [facility] Blood BLOOD SPECIMEN / Unknown Venipuncture / Unknown 10/25/2023 11:49 AM CDT 10/25/2023 11:51 AM CDT Taina LUNA CHEMISTRY [facility] [address] [place] [address], * XR MAMMO BILAT SCREENING (08/08/2023 3:31 PM DATABASE ARCHITECT) Anatomical Region Laterality Modality BREASTS, Breast Left, Breast Right Bilateral Mammography Impressions 08/08/2023 3:34 PM DATABASE ARCHITECT ??There is no radiographic evidence for malignancy. ??Recommend annual mammograms. MAMMOGRAM ASSESSMENT: ??ACR 1 Negative PATIENTS: You will also receive a letter with your examination results in an easy to read format. ??If you have questions about your results, please contact your referring provider. Narrative 08/08/2023 3:34 PM DATABASE ARCHITECT For Patients: As a result of the Century Cures Act, medical imaging exams and procedure reports are released immediately into your electronic medical record. You may view this report before your referring provider. If you have questions, please contact your health care provider. XR MAMMO BILAT SCREENING [[id number]] CLINICAL HISTORY: ??This is an asymptomatic 58 y.o. patient. INDICATION FOR EXAM: Mammogram Screening. TECHNIQUE: CC & MLO views were obtained. ??This study was evaluated with the assistance of Computer-Aided Detection. COMPARISON FILM: Yes 05/02/22 [facility] 07/21/20 [facility] FINDINGS: ??The breasts have scattered areas of fibroglandular density. There are no dominant masses, suspicious micro calcifications or areas of architectural distortion. Taina Jefferson PA MAMMO * HPV HIGH RISK (02/12/2022 4:22 PM CDT) TYPE 16 Negative Negative 02/15/2022 1:20 PM CDT [facility] TYPE 18 Negative Negative 02/15/2022 1:20 PM CDT [facility] OTHER HIGH RISK TYPES Negative Negative 02/15/2022 1:20 PM CDT [facility] Other (Cervical) Non-Blood / Unknown 02/12/2022 4:22 PM CDT 02/13/2022 5:52 PM CDT [facility]ative [facility] 02/15/2022 1:20 PM CDT HPV types 16, 18, 31, 33, 35, 39, 45, 51, 52, 56, 58, 59, 66 and 68 DNA were undetectable or below the pre-set threshold. Methodology: [place] J&B Sallie 4800 HPV Test Radha Rosas NP MICROBIOLOGY [facility] [address] [place] [address], * ANTI HCV (02/12/2022 4:15 PM CDT) HEPATITIS C ANTIBODY Non-React sonia Non-React sonia 02/13/2022 4:24 AM CDT [facility] Comment:Antibodies to HCV no t detected; does not exclude the possibility of exposure to HCV. Blood BLOOD SPECIMEN / Unknown Venipuncture / Unknown 02/12/2022 4:15 PM CDT 02/12/2022 4:16 PM CDT Radha Rosas NP SEND OUTS [facility] [address] [place] [address], * OCCULT BLOOD IFOBT STOOL (01/11/2017 2:54 PM CDT) STOOL BLOOD ,IFOBT Negative Negative 01/11/2017 3:04 PM CDT [facility] Stool STOOL SPECIMEN / Unknown Non-Blood / Unknown 01/11/2017 2:54 PM CDT 01/11/2017 2:54 PM CDT Senthil Puentes MD LABORATORY [facility] from Last 3 Months or Most [...] 10:12 AM 02/27/2008 4:34 PM Care Teams Managing Broker Relationship Specialty Start Date End Date Taina Jefferson [place] [address] PCP - General Physician Milk Processing Worker 03/31/24 None, Provided . 05/21/13 Denzel Farrell [address] [place] [address] [facility] [address] [place] [address] Psychiatry Psychiatry 01/11/17 [facility] VERMIN EXTERMINATOR [address] [place] [address] Nurse Practitioner Clinical Nurse Specialist 04/29/19 Taina Weiss, RD [address] [place] [address] Registered Dietitian Apprenticeship Training Representative 04/29/19
--- OUTSIDE RECORDS SUMMARY | 2024-04-26 12:51 | XMS_ITS | Referral Summary ---
Author Organization [facility] Address [address] [place] [address] Care Team Providers Care Mice Raiser Name Role Phone Madyson Cordon M.D. Primary Care Provider Source Comments Patient records contain information from all sites at [facility]. For routine questions regarding patient records, call [phone] during business hours, M-F 8:00 AM - 5:00 PM Central Time. Record requests for emergency care only can be directed to [phone] at any time.[facility] Encounters Date Type Department Care Team Description 03/10/2024 Orders Only [facility] PCP [facility] MNT Madyson Cordno M.D. from Last 3 Months Allergies Active Allergy [...] on file Legal Sex Female 7:01 PM SWAGING MACHINE OPERATOR Gender Identity Not on file Sexual Orientation Not on file Last Filed Vital Signs Vital Sign Reading Time Taken Comments Blood Pressure 109/74 01/14/2024 11:18 AM CDT av erage Pulse 96 01/14/2024 11:18 AM CDT Temperature 36 ??C (96.8 ??F) 01/14/2024 11:18 AM CDT Respiratory Rate 16 01/14/2024 11:18 AM CDT Oxygen Saturation 97% 05/23/2021 10:30 PM SWAGING MACHINE OPERATOR Inhaled Oxygen Concentration - - Weight 102 kg (225 lb 10.3 oz) 01/14/2024 11:18 AM CDT Height 169 cm (5' 6.54) 01/14/2024 11:18 AM CDT Body Mass Index 35.84 01/14/2024 11:18 AM CDT Plan of Treatment Not on file Procedures Procedure Name Priority Date/Time Associated Diagnosis Comments COMPREHENSIVE METABOLIC PANEL, S/P Routine 01/06/2013 12:27 PM CDT OUTSIDE MG MAMMOGRAM Routine 08/03/2008 10:27 AM SWAGING MACHINE OPERATOR from Last 3 Months or Most Recently [...] * Outside MG Mammogram (08/03/2008 10:27 AM SWAGING MACHINE OPERATOR) 08/03/2008 10:2 7 AM SWAGING MACHINE OPERATOR Addenda Addendum by ProviderIona M.D. on 08/03/2008 10:27 AM SWAGING MACHINE OPERATOR ODM^^^MCR XR MAMMO BILAT SCREEN FFDM 08/03/2008 10:27:00 Historical Provider IMG BI PROCEDURES Final Resu lt [facility] [address] [place] [address] from Last 3 Months or Most Recently Relevant to Health Maintenance [place] [facility]: [address] [address] [place] [address] Care Teams Mice Raiser Relationship Specialty Start Date End Date Madyson Cordon M.D. [address] [place] [phone] PCP - General Family Medicine 12/31/23
--- OUTSIDE RECORDS SUMMARY | 2024-04-26 12:51 | XMS_ITS | Clinical Summary ---
Author Organization [facility] [employer] Address [address] [place] [address] Care Team Providers Care Vineyard Supervisor Name Role Phone Needs Pcp, Assignment Primary Care Provider [phone] Source Comments You are receiving this document as you are listed as the primary care provider,follow-up provider, or the patient has been referred to you for consultation.This is in compliance with the Medicare and[facility] EHR Incentive Program,which states Providers who transition their patient to another setting of careor provider of care or refers their patient to another provider of care shouldprovide summary care record for each transition of care or referral. [employer] Allergies Active Allergy Reactions Criticality Noted Date [...] Asthma 04/23/2002 Essential hypertension 03/12/2002 Overview (04/07/2015): [facility] Tourette's disorder 03/12/2002 Pruritic disorder 03/12/2002 Overview (04/07/2015): [facility] Breast cancer Overview (02/08/2016): Right Breast CA Psychiatric problem Overview (08/04/2021): Depression, ?schizoaffective d/o Immunizations Name Administration Dates Next Due DT Ped 12/13/1987 Flu Vac (3+ yrs) 08/24/2005 HepA-HepB (TWINRIX, 18+ yrs) 04/24/2016 HepB Adult (Engerix-B, 20+ y rs, 3 dose series) 08/25/2015,06/23/2015 Influenza IIV4 (Quadrivalent ) 0.5mL (01483) 05/07/2020,04/23/2018,03/12/2017,2015,06/23/2015,05/19/2013,04/22/2007,1 07/14/2000 Influenza aIIV3 65+ Years (Fluad) [...] at delivery Heart Attack Maternal Grandfather of [place] at 65 Heart Attack Paternal Grandfather of [...] 08/17/2021 08/17/2020, 06/29/2019, 12/26/2018, Additional history exists Mammogram 05/02/2023 05/02/2022, 07/08, 05/07/2019, Additional history exists Medicare Annual Wellness Visit 07/08/2023 08/09/2020, 06/12/2019 Diabetes: HGBA1C 01/24/2024 10/25/2023, 09/2022, 02/12/2022, Additional history exists COVID-19 Vaccine ( season) 2024 04/06/2022, 11/21/2020, [...] on patient's age to complete this topic Infant RSV Aged Out No longer eligi ble based on patient's age to complete this topic MCV4 Aged Out No longer eligi ble based on patient's age to complete this topic Procedures Procedure Name Priority Date/Time Associated Diagnosis Comments CREATININE / GFR Routine 08/17/2020 8:30 AM MAT MACHINE OPERATOR Type 2 diabetes mellitus without complication, without long-term current use of insulin (HRC) Essential hypertension LIPID PANEL & DIRECT LDL (IF NEEDED) Routine 08/17/2020 8:30 AM MAT MACHINE OPERATOR Hyperlipidemia, unspecified hyperlipidemia type HGB A1C Routine 08/17/2020 8:30 AM MAT MACHINE OPERATOR Type 2 diabetes mellitus without complication, without [...] and Direct LDL(If Needed) (08/17/2020 8:30 AM MAT MACHINE OPERATOR) Cholesterol 184 0 - 199 mg/dL 08/17/2020 9:37 AM [facility] Triglyceride 125 <=149 mg/dL 08/17/2020 9:37 AM [facility] HDL Cholesterol 50 >=40 mg/dL 9:37 AM [facility] LDL, Calculated 109 <130 mg/dL 9:37 AM [facility] Non HDL Chol, Calculated 134 mg/dL 08/17/2020 9:37 AM [facility] Cholesterol/HDL Ratio 3.7 08/17/2020 9:37 AM [facility] Hours Fasting 12 08/17/2020 9:37 AM [facility] Blood Venipuncture / Unknown 08/17/2020 8:30 AM MAT MACHINE OPERATOR 08/17/2020 8:30 AM MAT MACHINE OPERATOR Ju Posada APRN, REFERENCE AND INSTRUCTION LIBRARIAN LAB_1 Performing Organization Address City/State/[facility] Co de Phone Number [facility] [address] [place] [address], [facility] [phone] * Creatinine / GFR (08/17/2020 8:30 AM MAT MACHINE OPERATOR) Creatinine 0.60 0.55 - 1.02 mg/dL 08/17/2020 9:37 AM MAT MACHINE OPERATOR [facility] GFR, Estimated >60 >60 mL/min/1.7 3m2 08/17/2020 9:37 AM MAT MACHINE OPERATOR [facility] Blood Venipuncture / Unknown 08/17/2020 8:30 AM MAT MACHINE OPERATOR 08/17/2020 8:30 AM MAT MACHINE OPERATOR Ju Posada APRN, CNP LAB_1 Performing Organization Address [facility] de Phone Number [facility] [address] [place] [address], [facility] [phone] * (ABNORMAL) Hgb A1C (08/17/2020 8:30 AM MAT MACHINE OPERATOR) Hemoglobin A1C 6.5(H) <=5.6 % 08/17/2020 2:06 PM MAT MACHINE OPERATOR [facility] Blood Venipuncture / Unknown 08/17/2020 8:30 AM MAT MACHINE OPERATOR 08/17/2020 8:30 AM MAT MACHINE OPERATOR Narrative [facility] - 08/17/2020 2:06 PM MAT MACHINE OPERATOR For patients not previously diagnosed with diabetes: 5.7-6.4%: Increased risk for diabetes 6.5% and greater: Diagnostic for diabetes For patients diagnosed with diabetes: <8.0%: Goal of therapy for ages 18-75 Clinicians may recommend a higher or lower goal for specific individuals. Ju Posada APRN, CNP LAB_1 Performing Organization Address [facility] Co de Phone Number [facility] [address] [address], [facility] [phone] * MAMMOGRAM SC (07/21/2020) Interface Provider MD AMBRIZ/OTHER/AR * Microalbumin/Creatinine Ratio (12/26/2018 8:25 AM CDT) Albumin, Urine, Random 9.6 mg/L 12/26/2018 9:15 AM CDT [facility] Creatinine, Urine, Random 89 >20 mg/dL 12/26/2018 9:15 AM CDT [facility] Albumin/Creati nine Ratio, Urine, Random 11 <30 mg/g 12/26/2018 9:15 AM CDT [facility] Urine,random 12/26/2018 8:25 AM CDT 12/26/2018 8:25 AM CDT Huyen Regalado PA-C LAB_1 [facility] [address] [place] [address] [phone] * HIV 1/2 Ag/Ab 4th Generation (12/26/2018 8:17 AM CDT) Pathologist [facility] HIV 1/2 Antigen/Antib summer (4th generation) Negative (Non Reactive) Negative (Non Reactive) 12/26/2018 1:09 PM CDT [facility] Comment:HIV-1 p24 Antigen an d HIV-1/HIV-2 Antibody not detected Blood Venipuncture / Unknown 12/26/2018 8:17 AM CDT 12/26/2018 8:17 AM CDT Huyen Regalado PA-C LAB_1 [facility] [address] * Pap Smear (10/12/2015 2:07 PM CDT) 10/12/2015 2:07 PM CDT Narrative HP CONVERSION - 10/18/2015 4:00 PM CDT FINAL GYNECOLOGICAL CYTOLOGY REPORT Pathology #: [id number] ?Date Obtained: 10/12/2015 ? Date Received: 10/13/2015 [...] and false-negative reports may occur. Performed at [facility], [address] [place] [address] Transcriptions 08/15/2016 7:40 PM CSTNotes Recorded by [...] 3:35 PM 10/01/2018 3:57 PM Care Teams Vineyard Supervisor Relationship Specialty Start Date End Date Needs Pcp, [place] [address] PCP - General 02/01/23
--- OUTSIDE RECORDS SUMMARY | 2024-04-26 12:51 | XMS_ITS ---
Author Organization [facility] Address [address] [place] [address] Care Team Providers Care Foundation Engineer Name Role Phone Unavailable Unavailable Unavailable Surgery Details Not on file Complications Check Surgery Details section. Procedure Estimated Blood Loss Check Surgery Details section. Procedure Findings Check Surgery Details section. Procedure Specimens Taken Check Surgery Details section.
--- OUTSIDE RECORDS SUMMARY | 2024-04-26 12:51 | XMS_ITS | Encounter Summary ---
Author Organization [facility] Address [address] [place] [address] Care Team Providers Care Procurement Assistant Name Role Phone Needs Pcp, Assignment Primary Care Provider [phone] Encounter Details Date Type Department Care Team (Late st Contact Info) Description 02/05/2013 Correspondence [facility] Family Practice [address] [place], [place] [id number] Mago Cantu MD MY AFTER CARE PLAN [...] documented as of this encounter Care Teams Procurement Assistant Relationship Specialty Start Date End Date Needs Pcp, [place] [address] PCP - General 02/01/23 documented as of this encounter
--- OUTSIDE RECORDS SUMMARY | 2024-04-26 12:51 | XMS_ITS | Encounter Summary ---
Author Organization [facility] Address [address] [place] [address] Care Team Providers Care Commercial Collections Driver Name Role Phone Needs Pcp, Assignment Primary Care Provider [phone] Encounter Details Date Type Department Care Team [...] documented as of this encounter Care Teams Commercial Collections Driver Relationship Specialty Start Date End Date Needs Pcp, [place] [address] PCP - General 02/01/23 documented as of this encounter
--- OUTSIDE RECORDS SUMMARY | 2024-04-26 12:51 | XMS_ITS | Encounter Summary ---
Author Organization [facility] Address [address] [address] Care Team Providers Care Core Cleaner Name Role Phone Needs Pcp, Assignment Primary Care Provider [phone] Encounter Details Date Type Department Care Team (Late st Contact Info) Description 02/05/2013 Outside Hospital External to External, [place] [address] DISCHARGE SUMMARY Social History Tobacco Use Types [...] documented as of this encounter Care Teams Core Cleaner Relationship Specialty Start Date End Date Needs Pcp, Tab [facility] [address] PCP - General 02/01/23 documented as of this encounter
--- OUTSIDE RECORDS SUMMARY | 2024-04-26 12:51 | XMS_ITS | Encounter Summary ---
Author Organization [facility] Address [address] [place] [address] Care Team Providers Care Digital Performance Analyst Name Role Phone Madyson Cordon M.D. Primary Care Provider [phone] Reason for Referral * Outpatient (Routine) - Authorized Specialty Diagnoses / Procedures Referred By James flower Referred To Contact Madyson Cordon M.D. [address] [place] [address] Phone: tel: fax: [facility] Region Referral ID Status Reason Start Date Expiration Date V isits Requested Visits Authorized [id number] Authorized 03/10/2024 09/09/2025 1 1 Scheduling Instructions Nurse AWV Do not schedule prior to due date to ensure insurance coverage Visit: Medicare Annual Wellness Never done. * Outpatient (Routine) - Authorized Specialty Diagnoses / Procedures Referred By Contac t Referred To Contact Family Medicine Madyson Cordon M.D. [address] [place] [address] Phone: tel: fax: [facility] Region Referral ID Status Reason Start Date Expiration Date V isits Requested Visits Authorized [id number] Authorized 03/10/2024 09/09/2025 1 1 Encounter Details Date Type Department Care Team (Late st Contact Info) Description 03/10/2024 Orders Only [facility] Madyson Cordon M.D. [address] [place] [address] Social History Tobacco Use Types Packs/Day Years [...] on file Legal Sex Female 7:01 PM QUARRY SUPERVISOR OPEN PIT Gender Identity Not on file Sexual Orientation [...] Total Score: 6 06/24/20 13 12:33 PM QUARRY SUPERVISOR OPEN PIT documented as of this encounter Care Teams Digital Performance Analyst Relationship Specialty Start Date End Date Madyson Cordon M.D. [address] [place] [address] PCP - General Family Medicine 12/31/23 documented as of this encounter
--- OUTSIDE RECORDS SUMMARY | 2024-04-26 12:51 | XMS_ITS | Encounter Summary ---
Author Organization [facility] Address [address] [address] Care Team Providers Care Tent Finisher Name Role Phone Needs Pcp, Assignment Primary Care Provider [phone] Encounter Details Date Type Department Care Team (Late st Contact Info) Description 04/17/2013 Scanned History External to External, Provider No address [address] Social History Tobacco Use Types Packs/Day Years [...] documented as of this encounter Care Teams Tent Finisher Relationship Specialty Start Date End Date Needs P[place], [place] [address] PCP - General 02/01/23 documented as of this encounter
== END 2024-04-22 22:21 | disposition home or self-care (01) ==
LOC: AMB 04-26 12:48
PROVIDERS: PCP Internal Medicine; Visit Provider Emergency Medicine Emergency Medical Services
DX: R41.82 Altered mental status, unspecified (principal)
CPT/HCPCS: A0998

== ENCOUNTER 2024-07-29 20:15 | Day surgery (SDC) | payer MEDICARE, MEDICAID, SELFPAY ==
--- OUTSIDE RECORDS SUMMARY | 2024-07-29 20:18 | XMS_ITS | Encounter Summary ---
Author Organization [facility] Address [address] [place] [address] Care Team Providers Care Wool Hat Finisher Name Role Phone Needs Pcp, Assignment Primary Care Provider [phone] Encounter Details Date Type Department Care Team (Late st Contact Info) Description 02/05/2013 Correspondence [facility] Family Practice [address] [place] [address] Mago Cantu MD MY AFTER CARE PLAN [...] documented as of this encounter Care Teams Wool Hat Finisher Relationship Specialty Start Date End Date Needs Pcp, [place] [address] PCP - General 02/01/23 documented as of this encounter
--- OUTSIDE RECORDS SUMMARY | 2024-07-29 20:18 | XMS_ITS | CCD ---
Author Organization Unknown Care Team Providers Care Cargo Checker Name Role Phone Long Distance Billing Operator, [place] Primary Care Provider Unava ilable Unavailable Chronic Care Management Unavaila ble Summary Purpose DataExchange Insurance Providers Payer name Policy type / Coverage type Covered republican ID Effective Begin Date Effective End Date Medicare [place] Medicare Part B [id number] Unknown Unknown U[employer] Medicare Part B [id number] Unknown Unknown Family History Family History data not found Medication Administered No Medication Administered data Reason For Visit No Reason For Visit data
--- OUTSIDE RECORDS SUMMARY | 2024-07-29 20:18 | XMS_ITS ---
Author Name Interface, [facility] Address [address] [facility] [address] [address] [facility] Address [address] [facility] [address] [address] Care Team Providers Care Harness Puller Name Role Phone [place] Unavailable Allergies and Adverse Reactions Medication/Group Name Reaction Severity Date amoxicillin 06/12/2023 amlodipine besylate 06/12/20 23 Macrolide Antibiotics 2022 Macrolide Antibiotics 2022 cefaclor 06/12/2023 Cephalosporins 06/12/2023 Calcium Channel Blocking Agents-Dihydropyridines 06/12/2023 quetiapine fumarate 06/12/20 23 Penicillins 06/12/2023 erythromycin base 06/12/2023 erythromycin base 06/12/2023 Plan Date Type Value 06/12/2023 APPOINTMENT NEW PT CONSULT 6 0 MIN 06/12/2023 APPOINTMENT LAB 10 MIN 05/17/2023 APPOINTMENT LAB 10 MIN 05/17/2023 APPOINTMENT NEW PT CONSULT 6 0 MIN 05/16/2023 APPOINTMENT NEW PT CONSULT 6 0 MIN 05/16/2023 APPOINTMENT LAB 10 MIN 01/28/2023 APPOINTMENT LAB 10 MIN 01/28/2023 APPOINTMENT NEW PT CONSULT 4 0 MIN 10/03/2021 APPOINTMENT NEW PT CONSULT 6 0 MIN 10/03/2021 APPOINTMENT TELEHEALTH SVC N EW PATIENT 60 MIN 08/14/2019 APPOINTMENT ISABEL [address] 44 - TBS: 05/14/2019 APPOINTMENT ISABEL - Alex HALL - 44 RC 06/12/2023 LABORDER Mammogram, scree goldie, bilateral breast 06/12/2024 LABORDER CMP 06/12/2024 LABORDER CBC w/ auto diff 06/12/2024 LABORDER Mammogram, scree goldie, bilateral breast Reason for Visit LAB 10 MIN Encounters Date Name 05/14/2019 Primary malignant ne oplasm of female breast (disorder) Immunizations Date Name Route Dose Instructions Refusal Reason Stat us Covid-19 vaccine (Pfizer) Covid-19 vaccine (Pfizer) Covid-19 vaccine (Moderna) Diagnostic Results Date Type Test Units Lower Limit Upper Limit Result Flag Comments Status Ordered By Specimen Source Lab Address 02/13 Misc other lab See manager contracting d 02/19 Misc other lab See manager contracting d Medications Date Name Route Dose Frequency Instructions Start Date End Date Status Rosuvastatin Calcium Oral oral 1.0 tablet daily active Lisinopril Oral daily a ctive Albuterol HFA Inhaler 90 mcg/actuation By inhalation 2.0 INHALATI ON(S) QID PRN active Metformin Oral PO 2.0 TABLET(S ) daily active Problems Diagnosis Status Date of Diagnosi s Estrogen receptor negative status [ER-] Active Primary malignant neoplasm of female breast (dis order) Active 04/2015 Estrogen receptor positive status [ER+] Active Vital Signs Date Type Value 05/14/2019 BMI 34.74 05/14/2019 Height 67.00 05/14/2019 Weight 221.80 05/14/2019 Pain Scale 0.00 05/14/2019 BSA 2.11 05/14/2019 Oxygen Saturation 95.00 05/14/2019 Respiratory Rate 20.00 05/14/2019 Heart Beat 95.00 05/14/2019 Body Temperature 96.80 05/14/2019 Intravascular Systolic 136 05/14/2019 Intravascular Diastolic 84 06/12/2023 BSA 2.12 06/12/2023 BMI 37.11 06/12/2023 Height 66.00 06/12/2023 Weight 229.90 06/12/2023 Pain Scale 0.00 06/12/2023 Intravascular Systolic 144 06/12/2023 Intravascular Diastolic 86 06/12/2023 Oxygen Saturation 97.00 06/12/2023 Respiratory Rate 16.00 06/12/2023 Body Temperature 96.90 06/12/2023 Heart Beat 97.00
--- OUTSIDE RECORDS SUMMARY | 2024-07-29 20:18 | XMS_ITS | Encounter Summary ---
Author Organization [facility] Address [address] [place] [address] Care Team Providers Care Poultry Farm Manager Name Role Phone Needs Pcp, Assignment Primary Care Provider [phone] Encounter Details Date Type Department Care Team (Late st Contact Info) Description 02/05/2013 Outside Hospital External to External, [place] [address] DISCHARGE SUMMARY Social History Tobacco Use Types [...] documented as of this encounter Care Teams Poultry Farm Manager Relationship Specialty Start Date End Date Needs [place], [place] [address] PCP - General 02/01/23 documented as of this encounter
--- OUTSIDE RECORDS SUMMARY | 2024-07-29 20:18 | XMS_ITS | Clinical Summary ---
Author Organization [facility] Address [address] [place] [address] Care Team Providers Care Livestock Laborer Name Role Phone Needs Pcp, Assignment Primary Care Provider [phone] Source Comments You are receiving this document as you are listed as the primary care provider,follow-up provider, or the patient has been referred to you for consultation.This is in compliance with the Medicare and[facility] EHR Incentive Program,which states Providers who transition their patient to another setting of careor provider of care or refers their patient to another provider of care shouldprovide summary care record for each transition of care or referral. Qwiqq Allergies Active Allergy Reactions Criticality Noted Date [...] Asthma 04/23/2002 Essential hypertension 03/12/2002 Overview (04/07/2015): [facility] Tourette's disorder 03/12/2002 Pruritic disorder 03/12/2002 Overview (04/07/2015): [facility] Breast cancer Overview (02/08/2016): Right Breast CA Psychiatric problem Overview (08/04/2021): Depression, ?schizoaffective d/o Immunizations Name Administration Dates Next Due DT Ped 12/13/1987 Flu Vac (3+ yrs) 08/24/2005 HepA-HepB (TWINRIX, 18+ yrs) 04/24/2016 HepB Adult (Engerix-B, 20+ y rs, 3 dose series) 08/25/2015,06/23/2015 Influenza IIV4 (Quadrivalent ) 0.5mL (81177) 05/07/2020,04/23/2018,03/12/2017,2015,06/23/2015,05/19/2013,04/22/2007,1 07/14/2000 Influenza aIIV3 65+ Years (Fluad) [...] at delivery Heart Attack Maternal Grandfather of [place] at 65 Heart Attack Paternal Grandfather of [...] 101 03/23/2021 7:38 PM CDT Temperature 37 C (98.6 F) 03/23/2021 7:38 PM CDT Respiratory Rate 20 [...] (Completed ) Diabetes: Urine Microalbumin 12/27/2019 12/26/2018 Medicare Annual Wellness Visit 08/09/2021 08/09/2020, 06/12/2019 Diabetes: Creatinine 08/17/2021 08/17/2020, 06/29/2019, 12/26/2018, Additional history exists Mammogram 05/02/2023 05/02/2022, 07/08, 05/07/2019, Additional history exists COVID-19 Vaccine ( season) 2024 04/06/2022, 11/21/2020, 10/22/2020 Influenza (#1) 2024 05/07/2020, 03/09, 04/23/2018, Additional history exists Diabetes: HGBA1C 04/25/2024 10/25/2023, 09/2022, 02/12/2022, Additional history exists Diabetes: Lipid Panel 08/17/2025 [...] CREATININE / GFR Routine 08/17/2020 8:30 AM INDUSTRIAL ENGINEERING DIRECTOR Type 2 diabetes mellitus without complication, without long-term current use of insulin (HRC) Essential hypertension LIPID PANEL & DIRECT LDL (IF NEEDED) Routine 08/17/2020 8:30 AM INDUSTRIAL ENGINEERING DIRECTOR Hyperlipidemia, unspecified hyperlipidemia type HGB A1C Routine 08/17/2020 8:30 AM INDUSTRIAL ENGINEERING DIRECTOR Type 2 diabetes mellitus without complication, without [...] and Direct LDL(If Needed) (08/17/2020 8:30 AM [facility]) Cholesterol 184 0 - 199 mg/dL 08/17/2020 9:37 AM [facility] Triglyceride 125 <=149 mg/dL 08/17/2020 9:37 AM [facility] HDL Cholesterol 50 >=40 mg/dL 9:37 AM [facility] LDL, Calculated 109 <130 mg/dL 9:37 AM [facility] Non HDL Chol, Calculated 134 mg/dL 08/17/2020 9:37 AM [facility] Cholesterol/HDL Ratio 3.7 08/17/2020 9:37 AM [facility] Hours Fasting 12 08/17/2020 9:37 AM [facility] Blood Venipuncture / Unknown 08/17/2020 8:30 AM INDUSTRIAL ENGINEERING DIRECTOR 08/17/2020 8:30 AM [facility] Ju Posada APRN, CASE MANAGER LAB_1 [facility] [address] [place] [address], [facility] [phone] * Creatinine / GFR (08/17/2020 8:30 AM INDUSTRIAL ENGINEERING DIRECTOR) Creatinine 0.60 0.55 - 1.02 mg/dL 08/17/2020 9:37 AM [facility] GFR, Estimated >60 >60 mL/min/1.7 3m2 08/17/2020 9:37 AM [facility] Blood Venipuncture / Unknown 08/17/2020 8:30 AM INDUSTRIAL ENGINEERING DIRECTOR 08/17/2020 8:30 AM INDUSTRIAL ENGINEERING DIRECTOR Ju Posada APRN, CNP LAB_1 Performing Organization Address [facility]/ZIP Co de Phone Number [facility] [address] [place] [address], [facility] [phone] * (ABNORMAL) Hgb A1C (08/17/2020 8:30 AM INDUSTRIAL ENGINEERING DIRECTOR) Hemoglobin A1C 6.5(H) <=5.6 % 08/17/2020 2:06 PM [facility] Blood Venipuncture / Unknown 08/17/2020 8:30 AM INDUSTRIAL ENGINEERING DIRECTOR 08/17/2020 8:30 AM INDUSTRIAL ENGINEERING DIRECTOR Narrative [facility] - 08/17/2020 2:06 PM INDUSTRIAL ENGINEERING DIRECTOR For patients not previously diagnosed with diabetes: 5.7-6.4%: Increased risk for diabetes 6.5% and greater: Diagnostic for diabetes For patients diagnosed with diabetes: <8.0%: Goal of therapy for ages 18-75 Clinicians may recommend a higher or lower goal for specific individuals. Ju Posada APRN, CNP LAB_1 Performing Organization Address City/[facility]/ZIP Co de Phone Number [facility] [address] [address], [facility] [phone] * MAMMOGRAM SC (07/21/2020) Interface Provider MD AMBRIZ/OTHER/AR * Microalbumin/Creatinine Ratio (12/26/2018 8:25 AM CDT) Albumin, Urine, Random 9.6 mg/L 12/26/2018 9:15 AM CDT [facility] Creatinine, Urine, Random 89 >20 mg/dL 12/26/2018 9:15 AM CDT [facility] Albumin/Creati nine Ratio, Urine, Random 11 <30 mg/g 12/26/2018 9:15 AM CDT [facility] Urine,random 12/26/2018 8:25 AM CDT 12/26/2018 8:25 AM CDT Huyen Regalado PA-C LAB_1 Performing Organization Address City/[facility]/ZIP Co de Phone Number [facility] [address] [place] [address] [phone] * HIV 1/2 Ag/Ab 4th Generation (12/26/2018 8:17 AM CDT) HIV 1/2 Antigen/Antib summer (4th generation) Negative (Non Reactive) Negative (Non Reactive) 12/26/2018 1:09 PM CDT [facility] Comment:HIV-1 p24 Antigen an d HIV-1/HIV-2 Antibody not detected Blood Venipuncture / Unknown 12/26/2018 8:17 AM CDT 12/26/2018 8:17 AM CDT Huyen Regalado PA-C LAB_1 Performing Organization Address City/[facility]/ZIP Co de Phone Number [facility] [address] * Pap Smear (10/12/2015 2:07 PM CDT) 10/12/2015 2:0 7 PM CDT Narrative HP CONVERSION - 10/18/2015 4:00 PM CDT FINAL GYNECOLOGICAL CYTOLOGY REPORT Pathology #: [id number] Date Obtained: 10/12/2015 Date Received: 10/13/2015 INTERPRETATION/RESULTS: Negative for Intraepithelial Lesion or Malignancy. SPECIMEN ADEQUACY: Satisfactory for Evaluation. No endocervical cells/transformation zone component present. Verified on 10/18/2015 by KAITLIN TAPIA(ASCP) (electronic signature) CLINICAL NOTES: Abnormal bleeding: No, LMP: 07/2014, Menstrual status: None Apply, Current form of therapy: None apply LIQUID BASED PAP SMEAR SPECIMEN TYPE: ROUTINE CERVICAL PAP TEST PLEASE NOTE: The pap smear is a screening test designed to aid in the detection of cervical cancer and its precursor lesions. It is not a diagnostic procedure and should not be used as the sole means of detecting cervical cancer. Both false-positive and false-negative reports may occur. Performed at [facility], [facility] [place] [address] Transcriptions 08/15/2016 7:40 PM CSTNotes Recorded by Meagn Holly RN on 10/19/2015 at 3:52 PMNormal [...] 3:35 PM 10/01/2018 3:57 PM Care Teams Livestock Laborer Relationship Specialty Start Date End Date Needs Pcp, [place] [address] PCP - General 02/01/23
--- OUTSIDE RECORDS SUMMARY | 2024-07-29 20:18 | XMS_ITS | Encounter Summary ---
Author Organization [facility] Address [address] [place] [address] Care Team Providers Care Equipment Mechanic Name Role Phone Needs Pcp, Assignment Primary Care Provider [phone] Encounter Details Date Type Department Care Team [...] documented as of this encounter Care Teams Equipment Mechanic Relationship Specialty Start Date End Date Needs Pcp, [place] [address] PCP - General 02/01/23 documented as of this encounter
--- OUTSIDE RECORDS SUMMARY | 2024-07-29 20:18 | XMS_ITS | Clinical Summary ---
Author Organization [facility] Address [address] [place] [address] Care Team Providers Care Regional Retail Sales Manager Name Role Phone None Reported, Pcp Primary Care Provider Unavail able Source Comments Patient records contain information from all sites at [facility]. For routine questions regarding patient records, call [phone] during business hours, M-F 8:00 AM - 5:00 PM Central Time. Record requests for emergency care only can be directed to [phone] at any time.[facility] Allergies Active Allergy Reactions Criticality Noted Date [...] Encounters Date Type Department Care Team Description 07/21/2024 Orders Only [facility] SELF TEST [address] [address] [id number] Madyson Cordon M.D. Screening Cancer Colon 06/10/2024 Orders Only [facility] SEMN PCP [facility] Madyson Cordon M.D. Screening Mammogram Breast Cancer from Last 3 Months Immunizations Immunization Administration Dates Next Due DT, Pediatric 12/13/1987 [...] on file Legal Sex Female 7:01 PM FIRE PREVENTION ENGINEER Gender Identity Not on file Sexual Orientation Not on file Last Filed Vital Signs Vital Sign Reading Time Taken Comments Blood Pressure 109/74 01/14/2024 11:18 AM CDT av erage Pulse 96 01/14/2024 11:18 AM CDT Temperature 36 C (96.8 F) 01/14/2024 11:18 AM CDT Respiratory Rate 16 01/14/2024 11:18 AM CDT Oxygen Saturation 97% 05/23/2021 10:30 PM FIRE PREVENTION ENGINEER Inhaled Oxygen Concentration - - Weight 102 kg (225 lb 10.3 oz) 01/14/2024 11:18 AM CDT Height 169 cm (5' 6.54) 01/14/2024 11:18 AM CDT Body Mass Index 35.84 01/14/2024 11:18 AM CDT Plan of Treatment Health Maintenance Due Date Last Done Comments CT Colonography 1965 Cervical/Vaginal Cancer Screening 1965 Cologuard 1965 Colonoscopy 1965 Colorectal Cancer Screening 1965 FIT 1965 Hepatitis C Screening 1965 Visit: Medicare Annual Wellness 1965 Zoster Vaccines (1 of 2) 2015 Pneumococcal vaccine (50+ years) (2 of 2 - PCV) 09/02/2018 09/02/2017 COVID-19 Vaccine ( season) 2024 04/06/2022, 11/21/2020, 10/22/2020 Influenza Vaccine (#1) 2024 , 05/07/2020, 04/01/2020, Additional history exists Depression Screening (Annual PHQ-2) 07/08/2024 Office Visit for Blood Pressure Check / Re-check 01/13/2025 01/14/2024 Visit: Chronic Disease, age 18+ 01/13/2025 01/14/2024, 01/14/2024 Mammogram 06/12/2025 06/12/2024, 04/08, 05/02/2022, Additional history exists Fasting Glucose for Diabetes Screening 10/24/2026 10/25/2023, 09/23/2022, 08/10/2022, Additional history exists Lipid (Cholesterol) Screening 10/24/2028 10/25/2023, 09/23/2022, 02/12/2022, Additional history exists DTaP,Tdap,and Td Vaccines (11 - Td or Tdap) 08/23/2033 08/23/2023, 08/24/2011, 11/29/2009, Additional history exists HIV Screening Completed 01/24/2006 Hepatitis B Vaccines Completed 04/24/2016, 04/24/2016, 08/25/2015, Additional history exists IPV Vaccines Aged Out No longer eligi ble based on patient's age to complete this topic Procedures Procedure Name Priority Date/Time Associated Diagnosis Comments COMPREHENSIVE METABOLIC PANEL, S/P Routine 01/06/2013 12:27 PM CDT OUTSIDE MG MAMMOGRAM Routine 08/03/2008 10:27 AM FIRE PREVENTION ENGINEER from Last 3 Months or Most Recently [...] are in mL/min/1.73m squared CKD Stage I: GFR > 90 CKD Stage II: GFR 60 to 89 CKD Stage III: GFR 30 to 59 CKD Stage IV: GFR 15 to 29 CKD Stage V: GFR < 15 or Dialysis eGFR Black/ >60 >=60 POWERCHART Blood 01/06/2013 12:2 7 PM CDT Rich Rodriguez D.O. LAB BLOOD ADD-ON Final Resul t POWERCHART * Outside MG Mammogram (08/03/2008 10:27 AM FIRE PREVENTION ENGINEER) 08/03/2008 10:2 7 AM FIRE PREVENTION ENGINEER Addenda Addendum by ProviderIona M.D. on 08/03/2008 10:27 AM FIRE PREVENTION ENGINEER ODM^^^MCR XR MAMMO BILAT SCREEN FFDM 08/03/2008 10:27:00 Historical Provider IMG BI PROCEDURES Final Resu lt [facility] [address] [place] [address] from Last 3 Months or Most Recently Relevant to Health Maintenance Insurance MEDICA Care Teams Regional Retail Sales Manager Relationship Specialty Start Date End Date None Reported, Pcp PCP - General Family Medicine 07/23/24
--- OUTSIDE RECORDS SUMMARY | 2024-07-29 20:18 | XMS_ITS | Encounter Summary ---
[facility] Address [address] [place] [address] Care Team Providers Care Billet Shearer Name Role Phone Needs Pcp, Assignment Primary Care Provider [phone] Encounter Details Date Type Department Care Team (Late st Contact Info) Description 04/17/2013 Scanned History External to External, Provider No address [address] Social History Tobacco Use Types Packs/Day [...] documented as of this encounter Care Teams Billet Shearer Relationship Specialty Start Date End Date Needs Pcp, [place] [address] PCP - General 02/01/23 documented as of this encounter
--- OUTSIDE RECORDS SUMMARY | 2024-07-29 20:18 | XMS_ITS | Clinical Summary ---
Author Organization [facility] Address [place], [place] [address] Care Team Providers Care Lamp Replacer Name Role Phone None, Provided Unavailable Unavailable Denzel Farrell Unavailable [phone] Arlene Pierce Gmitro PADDOCK JUDGE Unavailable [phone] Unavailable [phone] Taina Jefferson Primary Care Provider [phone] Allergies Active Allergy Reactions Criticality Noted Date [...] *Unknown 09/12/2020 Sulfa (Sulfonamide Antibiotics) Rash 08/10/2022 Trimethoprim Rash 02/07/2023 Medications blood sugar diagnostic stripIndications :Type 2 diabetes mellitus without complication, without long-term current use of insulin (HC) Dispense item covered by pt ins. E11.9 NIDDM type II - Test 1 time/day. Patient states using AccuChek Galilea Meter 100 Each 3 02/13/20 22 Active blood-glucose meterIndications :Type 2 diabetes mellitus without complication, without long-term current use of insulin (HC) Dispense meter, test strips, lancets covered by pt ins. E11.9 NIDDM type II - Test 1 time/day 1 Each 05/02/20 22 Active blood sugar diagnostic (Accu-Chek Guide test strips) stripIndications :Type 2 diabetes mellitus without complication, without long-term current use of insulin (HC) Dispense item covered by pt ins. E11.9 IDDM type II - Test 1 time/day 100 Each 10/25/19 24 Active lisinopriL (PRINIVIL; ZESTRIL) 10 mg tabletIndication s:Hypertension associated with diabetes (HC) Take 1 Tablet (10 mg) by mouth once daily. 90 Tablet 3 10/25/19 24 Active Blood Pressure Monitor KitIndications:H ypertension associated with diabetes (HC) Frequency of testing: daily 1 Each 10/25/19 24 Active albuterol HFA (PRO-AIR; VENTOLIN; PROVENTIL) 90 mcg/actuation inhalerIndicatio ns:Moderate persistent asthma without complication INHALE 2 PUFFS BY MOUTH EVERY FOUR TO SIX HOURS NEEDED 18 Each 2 03/17/20 24 Active fluticasone fur-umeclidinium -vilanterol (Trelegy Ellipta) 100-62.5-25 mcg inhalerIndicatio ns:Mild persistent asthma without complication INHALE ONE PUFF BY MOUTH ONE TIME DAILY 180 Each 1 03/18/20 24 Active Trulicity 1.5 mg/0.5 mL subcutaneous pen Inject 1.5 mg subcutaneous once weekly. 04/30/20 24 Active predniSONE (DELTASONE) 10 mg tabletIndication s:Moderate persistent asthma with acute exacerbation Take 40mg (4 tabs) daily x2 days --> 30mg (3 tabs) daily x2 days --> 20mg (2 tabs) daily x2 days --> 10mg (1 tab) daily x2 days --> stop. 20 Tablet 06/17/20 24 Active metFORMIN (GLUCOPHAGE XR) 500 mg Extended-Release tabletIndication s:Type 2 diabetes mellitus without complication, without long-term current use of insulin (HC) Take 2 Tablets (1,000 mg) by mouth once daily. 60 Tablet 07/17/19 25 Active metFORMIN (GLUCOPHAGE XR) 500 mg Extended-Release tabletIndication s:Type 2 diabetes mellitus without complication, without long-term current use of insulin (HC) Take 2 Tablets (1,000 mg) by mouth once daily. 180 Tablet 1 10/25/19 24 025 Discontin ued(Reord er (E-cancel not sent)) Active Problems Problem Noted Date Diagnosed Date [...] Lumpectomy and chemotherapy and radiation Treated at 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,HER-2/federico neg Encounters Date Type Department Care Team Description 07/16/2024 Refill [facility] [address] [place] [address] Taina Jefferson PA Refill Request (Metformin HCL ER 500mg tablet) 06/16/2024 Nurse Triage [facility] [place] [address] [place] [phone] Melanie Josue MD Difficulty Breathing 05/15/2024 Patient Outreach [facility] [address] [place] [address] Yvette Elizondo, D[facility] F/U; Primary RN Care Management (LACE 52) 05/10/2024 4:54 PM WARP DYEING VAT TENDER - 05/14/2024 9:00 AM WARP DYEING VAT TENDER Hospital Encounter [facility] [address] [place] [address] Nura Mccarthy MD Brennom, Wade James, MD Friedman, MD Gagan Christina, Philip Omalley MD Adult, [facility] Psychiatry - Sandra Yoon NP Delusions (HC) (Primary Dx); Paranoia (HC); Chronic schizoaffective disorder (HC); Tachycardia Discharge Disposition: Home Self Care 05/10/2024 Nurse Triage [facility] [address] [place] [address] Taina Jefferson PA Error-please disregard 05/10/2024 Travel from Last 3 Months Immunizations Name Administration Dates Next Due COVID-19 vaccine ([employer] 30mcg/0.3mL) PF, MDV 11/21/2020,10/22/2020 HepA-HepB (Twinrix) [...] Grandfather Stroke Maternal Grandmother Heart Disease Mother [place] Hypertension Mother Obesity Mother Hypertension Paternal Grandfather [...] PHQ-2 Answer Date Recorded PHQ-2 TOTAL SCORE 1 05/12/2024 Social Connections Answer Date Recorded Do you often feel lonely or isolated from those around you? 0 05/11/2024 Financial Resource Strain Answer Date R ecorded Difficulty of Paying Living Expenses 2 05/11/2024 Difficulty of Paying Living Expenses 1 05/11/2024 Food Insecurity Answer Date Recorded Do you worry your food will run out before you are able to buy more? 1 05/11/2024 Transportation Needs Answer Date Record ed Does lack of transportation keep you from medica l appointments? 2 05/11/2024 Does lack of transportation keep you from work, meetings or getting things that you need? 2 05/11/2024 Housing Stability Answer Date Recorded What is your housing situation today? 1 05/11/2024 Interpersonal Safety Answer Date Record ed Are you being hit, kicked, p ushed or yelled at (see row info)? No 05/10/2024 Interpersonal Safety Abuse 12 - 18 Not on file 05/10/2024 Interpersonal Safety Ambulatory Vulnerability No t on file 05/10/2024 Utilities Answer Date Recorded Do you have trouble paying f or utilities (for example, heat, electricity, water, phone)? 1 05/11/2024 Comments No Sex and Gender Information Value Date Recorded Sex Assigned at Not on file Legal Sex Female 6:06 AM WARP DYEING VAT TENDER Gender Identity Not on file Sexual Orientation Not on file Obstetrics History Last Filed Vital Signs Vital Sign Reading Time Taken Comments Blood Pressure 117/59 05/14/2024 8:38 AM WARP DYEING VAT TENDER Pulse 105 05/14/2024 8:38 AM WARP DYEING VAT TENDER Temperature 37 C (98.6 F) 05/14/2024 8:38 AM WARP DYEING VAT TENDER Respiratory Rate 16 05/14/2024 8:38 AM WARP DYEING VAT TENDER Oxygen Saturation 99% 05/14/2024 8:38 AM WARP DYEING VAT TENDER Inhaled Oxygen Concentration - - Weight 104.3 kg (230 lb) 05/10/2024 4:49 PM WARP DYEING VAT TENDER Height 167.6 cm (5' 6) 05/10/2024 4:49 PM WARP DYEING VAT TENDER Body Mass Index 37.12 05/10/2024 4:49 PM WARP DYEING VAT TENDER Plan of Treatment Upcoming Encounters Date Type Department Care Team (Late st Contact Info) Description 08/03/2024 9:30 AM WARP DYEING VAT TENDER Office Visit [facility] [address] [place] [address] Taina Jefferson PA [address] [place] [address] 08/05/2024 9:10 AM WARP DYEING VAT TENDER Office Visit [facility] [address] [place] [address] Joel Carrasco MD [address] [place] [address] Health Maintenance Due Date Last Done Comments HIV for age 15-65 1980 Zoster (shingles) series for age 50+ (1 of 2) 1984 Fecal testing non-DNA (FIT,FOBT,iFOBT) for age 45-75 01/11/2018 01/11/2017 Pneumococcal series for age 50+ (2 of 2 - PCV) 09/02/2018 09/02/2017 Tetanus booster 08/24/2021 08/24/2011, 11/06, 01/06/2007, Additional history exists COVID-19 vaccine series ( season) 2024 04/06/2022, 11/21/2020, 10/22/2020 Influenza for age 50-64 03/08/2024 05/07/20 20, 04/01/2020, 04/23/2018, Additional history exists Mammogram for age 45-75 08/08/2024 08/08/19 24, 05/02/2022, 07/21/2020, Additional history exists BMI (ht and wt on same day) for age 18+ 10/24/2024 10/25/2023, 02/12/2022, 12/12/2020, Additional history exists Depression screening for age 12+ 05/12/2025 05/12/2024, 05/10/2024, 02/14/2022, Additional history exists Pap test for age 21-65 02/12/2027 , 02/12/2022, 11/16/2015 ([facility]), Additional history exists Lipids for age 45-75 [...] Procedure Name Priority Date/Time Associated Diagnosis Comments GLUCOSE METER Timed 05/14/2024 7:44 AM WARP DYEING VAT TENDER GLUCOSE METER Timed 05/13/2024 9:44 PM WARP DYEING VAT TENDER GLUCOSE METER Timed 05/13/2024 6:32 PM WARP DYEING VAT TENDER GLUCOSE METER Timed 05/13/2024 12:20 PM WARP DYEING VAT TENDER GLUCOSE METER Timed 05/13/2024 7:43 AM WARP DYEING VAT TENDER GLUCOSE METER Timed 05/12/2024 8:52 PM WARP DYEING VAT TENDER GLUCOSE METER Timed 05/12/2024 5:25 PM WARP DYEING VAT TENDER GLUCOSE METER Timed 05/12/2024 8:03 AM WARP DYEING VAT TENDER GLUCOSE METER Timed 05/11/2024 12:51 PM WARP DYEING VAT TENDER GLUCOSE METER Timed 05/11/2024 9:46 AM WARP DYEING VAT TENDER LIPID PANEL W REFLEX MEASURED LDL Routine 10/25/2023 11:49 AM CDT Type 2 diabetes mellitus without complication, without long-term current use of insulin (HC) XR MAMMO BILAT SCREENING Routine 08/08/2023 3:31 PM WARP DYEING VAT TENDER Encounter for screening mammogram for malignant neoplasm of breast HPV HIGH RISK Routine 02/12/2022 4:22 PM CDT Pap smear for cervical cancer screening ANTI HCV Routine 02/12/2022 4:15 PM CDT Need for hepatitis C screening test OCCULT BLOOD IFOBT STOOL Routine 01/11/2017 2:54 PM CDT Screening for colon cancer from Last 3 Months or Most Recently Relevant to Health Maintenance Results * GLUCOSE METER (05/14/2024 7:44 AM WARP DYEING VAT TENDER) Only the most recent of10 resultswithin the time period is included. GLUCOSE METER 98 65 - 100 mg/dL 05/14/2024 7:44 AM WARP DYEING VAT TENDER [facility] [employer] Blood BLOOD SPECIMEN / Unknown 05/14/2024 7:44 AM WARP DYEING VAT TENDER 05/14/2024 7:44 AM WARP DYEING VAT TENDER us Sandra Yoon WEDGER MACHINE CHEMISTRY Final Resu lt [facility] [employer] [facility] [address] [place] [address], * (ABNORMAL) LIPID PANEL W REFLEX MEASURED LDL (10/25/2023 11:49 AM CDT) CHOLESTEROL,TOTAL 222(H) 100 - 199 mg/dL 10/25/2023 8:53 PM CDT [facility] [employer] [facility] Comment: Cholesterol, Total Reference Ranges Desirable <200 mg/dL Borderline 200-239 mg/dL High >=240 mg/dL TRIGLYCERIDES 133 <150 mg/dL 10/25/2023 8:53 PM CDT [facility] HDL CHOLESTEROL 57 >40 mg/dL 8:53 PM CDT [facility] NON-HDL CHOLESTEROL 165(H) <145 mg/dl 10/25/2023 8:53 PM CDT [facility] CHOL/HDL RATIO 3.89 <4.50 10/25/2023 8:53 PM CDT [facility] LDL CHOLESTEROL 138(H) <=130 mg/dL 10/25/2023 8:53 PM CDT [facility] VLDL CHOLESTEROL 27 <=30 mg/dL 10/25/2023 8:53 PM CDT [facility] PROVIDER ORDERED STATUS RANDOM 10/25/2023 8:53 PM CDT [facility] Blood BLOOD SPECIMEN / Unknown Venipuncture / Unknown 10/25/2023 11:49 AM CDT 10/25/2023 11:51 AM CDT us Taina LUNA CHEMISTRY Final Res ult [facility] [address] [place] [address], [place] * XR MAMMO BILAT SCREENING (08/08/2023 3:31 PM WARP DYEING VAT TENDER) Anatomical Region Laterality Modality BREASTS, Breast Left, Breast Right Bilateral Mammography Impressions 08/08/2023 3:34 PM WARP DYEING VAT TENDER There is no radiographic evidence for malignancy. Recommend annual mammograms. MAMMOGRAM ASSESSMENT: ACR 1 Negative PATIENTS: You will also receive a letter with your examination results in an easy to read format. If you have questions about your results, please contact your referring provider. Narrative 08/08/2023 3:34 PM WARP DYEING VAT TENDER For Patients: As a result of the Century Cures Act, medical imaging exams and procedure reports are released immediately into your electronic medical record. You may view this report before your referring provider. If you have questions, please contact your health care provider. XR MAMMO BILAT SCREENING [[id number]] CLINICAL HISTORY: This is an asymptomatic 58 y.o. patient. INDICATION FOR EXAM: Mammogram Screening. TECHNIQUE: CC & MLO views were obtained. This study was evaluated with the assistance of Computer-Aided Detection. COMPARISON FILM: Yes 05/02/22 [facility] 07/21/20 [facility] FINDINGS: The breasts have scattered areas of fibroglandular density. There are no dominant masses, suspicious micro calcifications or areas of architectural distortion. us Taina Talaveracha PA MAMMO Final Res ult * HPV HIGH RISK (02/12/2022 4:22 PM CDT) TYPE 16 Negative Negative 02/15/2022 1:20 PM CDT [facility] TYPE 18 Negative Negative 02/15/2022 1:20 PM CDT [facility] OTHER HIGH RISK TYPES Negative Negative 02/15/2022 1:20 PM CDT [facility] Other (Cervical) Non-Blood / Unknown 02/12/2022 4:22 PM CDT 02/13/2022 5:52 PM CDT Narrative [facility] - 02/15/2022 1:20 PM CDT HPV types 16, 18, 31, 33, 35, 39, 45, 51, 52, 56, 58, 59, 66 and 68 DNA were undetectable or below the pre-set threshold. Methodology: Phillip Sallie 4800 HPV Test December E Solis Luna WEDGER MACHINE MICROBIOLOGY Final R esult [facility] [address] [place] [address], * ANTI HCV (02/12/2022 4:15 PM CDT) HEPATITIS C ANTIBODY Non-React sonia Non-React sonia 02/13/2022 4:24 AM CDT [facility] Comment:Antibodies to HCV no t detected; does not exclude the possibility of exposure to HCV. Blood BLOOD SPECIMEN / Unknown Venipuncture / Unknown 02/12/2022 4:15 PM CDT 02/12/2022 4:16 PM CDT December Solis Luna WEDGER MACHINE SEND OUTS Final R esult [facility] [address] [place] [address], [place] * OCCULT BLOOD IFOBT STOOL (01/11/2017 2:54 PM CDT) STOOL BLOOD ,IFOBT Negative Negative 01/11/2017 3:04 PM CDT [facility] Stool STOOL SPECIMEN / Unknown Non-Blood / Unknown 01/11/2017 2:54 PM CDT 01/11/2017 2:54 PM CDT Senthil Puentes MD LABORATORY Final Resu lt [facility] [address] [address], [place] [phone] from Last 3 Months or Most Recently Relevant to Health Maintenance Insurance MEDICARE PART A HB ONLY MEDICARE PB ONLY MEDICARE PART B HB ONLY [facility] [id number] [place] [address] MEDICARE PART A HB ONLY [facility] MEDICARE PB ONLY Advance Directives * Full Code (Latest Code Status on File) Date Activated Date Inactivated Comments 05/11/2024 5:31 PM 05/14/2024 12:55 PM Question Answer Comments Code Status Discussion: Reviewed Preferences * Full Code Date Activated Date Inactivated Comments 09/24/2022 9:32 [...] Comments 03/10/2008 4:42 PM 04/12/2008 3:59 PM Care Teams Lamp Replacer Relationship Specialty Start Date End Date Taina Jefferson [place] [facility] [place] [address] PCP - General Physician Rebar Bender 03/31/24 None, Provided . 05/21/13 Denzel Farrell [address] [place] [id number] Psychiatry Psychiatry 01/11/17 Arlene Pierce Gmitro, PADDOCK JUDGE [address] [place], [place] [address] Nurse Practitioner Clinical Nurse Specialist 04/29/[address] [facility] [place] [address] Registered Dietitian Tanbark Laborer 04/29/19
--- OUTSIDE RECORDS SUMMARY | 2024-07-29 20:18 | XMS_ITS ---
Author Name Interface, [id number] lity Address [address] [address] Organization [facility] Address [address] [place] [address] Care Team Providers Care Loan Representative Name Role Phone Darryl Mariano Unavailable Allergies and Adverse Reactions Medication/Group Name Reaction Severity Date amoxicillin 06/12/2023 amlodipine besylate 06/12/20 23 Macrolide Antibiotics 2022 Macrolide Antibiotics 2022 cefaclor 06/12/2023 Cephalosporins 06/12/2023 Calcium Channel Blocking Agents-Dihydropyridines 06/12/2023 quetiapine fumarate 06/12/20 23 Penicillins 06/12/2023 erythromycin base 06/12/2023 erythromycin base 06/12/2023 Plan Date Type Value 06/12/2023 APPOINTMENT NEW PT CONSULT 6 0 MIN 06/12/2023 APPOINTMENT LAB 10 MIN 06/12/2023 LABORDER Mammogram, scree goldie, bilateral breast 06/12/2024 LABORDER CMP 06/12/2024 LABORDER CBC w/ auto diff 06/12/2024 LABORDER Mammogram, scree goldie, bilateral breast Reason for Visit LAB 10 MIN Encounters Date Name 06/12/2023 Primary malignant ne oplasm of female breast (disorder) Immunizations Date Name Route Dose Instructions Refusal Reason Stat us Covid-19 vaccine (Pfizer) Covid-19 vaccine (Pfizer) Covid-19 vaccine (Moderna) Medications Date Name Route Dose Frequency Instructions Start Date End Date Status Rosuvastatin Calcium Oral oral 1.0 tablet daily active Lisinopril Oral daily a ctive Albuterol HFA Inhaler 90 mcg/actuation By inhalation 2.0 INHALATI ON(S) QID PRN active Metformin Oral PO 2.0 TABLET(S ) daily 015 active Problems Diagnosis Status Date of Diagnosi s Estrogen receptor negative status [ER-] Active Primary malignant neoplasm of female breast (dis order) Active 04/2015 Estrogen receptor positive status [ER+] Active Vital Signs Date Type Value 06/12/2023 Body Temperature 96.90 06/12/2023 Heart Beat 97.00 06/12/2023 Respiratory Rate 16.00 06/12/2023 Oxygen Saturation 97.00 06/12/2023 BSA 2.12 06/12/2023 Pain Scale 0.00 06/12/2023 Weight 229.90 06/12/2023 Height 66.00 06/12/2023 BMI 37.11 06/12/2023 Intravascular Systolic 144 06/12/2023 Intravascular Diastolic 86 Notes Section * Med Onc Consult Patient Name:??RAFAL LY Date of :??1965 Date of Service:??06/12/2023 Attending Physician:?Darryl Mariano (Hematology/Oncology) Referring Physician: ? INITIAL HEMATOLOGY/MEDICAL ONCOLOGY CONSULTATION Reason for Visit Breast cancer follow-up Assessment This is a very pleasant 57-year-old lady with history of triple negative breast cancer??17 years ago, which was treated with??lumpectomy,??adjuvant radiation therapy,??and adjuvant chemotherapy, as well as??a separate??ER/GA positive, HER2 negative breast cancer??in 2014, treated with lumpectomy??an d??limited??course of??adjuvant??endocrine therapy.?? She has not been on any adjuvant endocrine therapy since 2019.?? Due to radiation dermatitis, she was only able to complete??about a week of adjuvant radiation therapy??in 2015.?Last mammogram from a year ago was negative. ??She does not have any??new symptoms or??exam findings concerning for breast cancer recurrence Plan 1.?? Due for mammogram.?? Ordered one to be done as soon as possible 2.?? Reasonable to return in 1 year for follow-up 3.?? Labs and mammogram prior 4.?? No need to restart adjuvant endocrine therapy. Advanced Care Planning Not discussed at this visit. Pain Scale on Today's Visit Not recorded on today's visit Pain Plan on Today's Visit No pain plan indicated for today's visit Smoking Status Smoking Status: Smoking Tobacco : Never smoker; Smokeless Tobacco : Never used smokeless tobacco; Vaping : Never vaped History of Present Illness 1. ??At the age of 40 she was diagnosed with right-sided breast cancer that was thought to be secondary to galactorrhea initially. ??This was found to be a grade 3 cancer measuring 2.7 cm this was ERPR and HER-2 negative. ??She went on to have lumpectomy and sentinel lymph node procedure for this.??Subsequent to that had 4 cycles of Adriamycin and cyclophosphamide followed by dose dense paclitaxel. ??Had troubles with radiation but did complete that. 2. ??March 2015: Screening mammography showed a concerning left breast mass and biopsied and revealed ER and GA positive , strongly, HER-2/federico negative. 3. ??04/14/2015: Invasive ductal carcinoma was identified measuring 1.1 cm, sentinel lymph node negative, ER 100%, GA 70%, HER-2/federico negative by fish., ??Ratio of 0.66 4. ??May 2015: Had about a week of radiation and complete patient decided not to finish that. 5. ??July 2015: Took about a month of tamoxifen. ??This was discontinued due to profound sweating. ??Note Oncotype DX at that point showed a recurrence score of 16 [do not have official report] with a risk of distant recurrence of 10% with endocrine manipulation 6. ??Some time after that took a few weeks of her raloxifine but discontinued and now concern with toxicity of thromboembolism due to strong family history. 7. ??Patient was off endocrine manipulation with letrozole for 1 to 2 years (patient is a poor historian). Was on letrozole for approximately 1 year total since diagnosis.?? The patient returns to clinic today for a follow-up visit. ??She has been lost to follow-up from a breast cancer standpoint??since 2019.?? She has not been taking letrozole for the past 4 years.?? Last mammogram was a year ago, and this was negative.?? She denies any new breast nodules,??persistentbone pain, or focal neurologic symptoms. Review of Systems A comprehensive review of systems was performed and the pertinent positives and negatives can be found in the History of Present Illness. Past Medical and Surgical History Hyperlipidemia Hypertension Diabetes Current Medications Medication List Name Date Albuterol HFA Inhaler 90 mcg/actuation 0 04/03/2019 Crestor (Rosuvastatin Calcium Oral) 01/2019 Metformin Oral 06/12/2023 Lisinopril Oral 06/12/2023 Allergies Current Allergy List Allergy Name Severity Status Recording Date Calcium Channel Blocking Agents-Dihydropyridines Active 06/12/2023 Cephalosporins Active 06/12/2023 Macrolide Antibiotics Active 2022 Macrolide Antibiotics Active 2022 Penicillins Active 06/12/2023 amlodipine besylate Active 06/12/20 23 amoxicillin Active 06/12/2023 cefaclor Active 06/12/2023 erythromycin base Active 06/12/2023 erythromycin base Active 06/12/2023 quetiapine fumarate Active 06/12/20 Family History Unremarkable Social History Never smoker. ??No significant alcohol intake. Vital Signs Blood pressure: 144/86, Pulse: 97, Temperature: 96.9 F, Respirations: 16, O2 sat: 97%, Pain Scale: 0, Height: 66 in, Weight: 229.9 lb, BSA: 2.12, BMI: 37.11 kg/m2 Immunizations: Covid-19 vaccine (Moderna) (06/12/2023); Covid-19 vaccine (Pfizer) (06/12/2023); Covid-19 vaccine (Pfizer) (06/12/2023) Oxygen Sats 97% Performance Status ECOG or Karnofsky ECOG: Not recorded. Karnofsky: 90% Able to carry on normal activity; minor signs or symptoms of disease. (Date: 05/14/2019) Physical Exam General: Awake, alert, and oriented. ??ECOG PS 0 Skin: ??No bruising or skin rash noted. Eyes: ?? Sclera anicteric. ?? Heart: Regular rate and rhythm. ??No murmurs Lungs: Clear Lymphatics: No palpable lymphadenopathy Breast:??Deferred Abdomen: ??Soft, nontender, nondistended.? Extremities: ??Well perfused, no edema. Genetics/Molecular/Biomarkers Additional Labs, Imaging and Other Studies Lab Results Chemistries LabResults 02/19/2023 02/13/2023 09/23/2022 08/10/2022 08/28/2016 Chemistries Surveys/Consents/Other Discussions Thank you for allowing me to see RAFAL LY in consult. Darryl Mariano MD CC: FAX Taina Jefferson PA-C Electronically signed by Darryl Mariano MD 06/13/2023 12:47 PROGRAM ASSOCIATE
--- OUTSIDE RECORDS SUMMARY | 2024-07-29 20:18 | XMS_ITS | CCD ---
Author Name Interface, [id number] lity Address [address] [facility] [address] [place] [address] [facility] Address [address] [place] [address] Care Team Providers Care Bottom Pounder Cement Shoes Name Role Phone Darryl Mariano Unavailable Unavailable Care Plan Reason for Visit Encounters Functional Status Medications Problems Procedures Social History
--- OUTSIDE RECORDS SUMMARY | 2024-07-29 20:19 | XMS_ITS | Encounter Summary ---
Author Organization [facility] Address [address] [place] [address] Care Team Providers Care Patient Intake Representative Name Role Phone Madyson Cordon M.D. Primary Care Provider [phone] Encounter Details Date Type Department Care Team (Late st Contact Info) Description 07/21/2024 Orders Only [facility] [address] [place] [id number] Madyson Cordon M.D. [address] [place] [phone] Screening Cancer Colon Social History Tobacco Use Types Packs/Day Years [...] on file Legal Sex Female 7:01 PM DEPUTY DISTRICT CUSTOMS DIRECTOR Gender Identity Not on file Sexual Orientation Not on file documented as of this encounter Plan of Treatment Scheduled Orders Name Type Priority Associated Diagnoses Orde r Schedule Cologuard - Sent Out Lab Lab Routine Screening Cancer Colon Expected: 08/04/2024, Expires: 10/19/2025 documented as of this encounter Visit Diagnoses Diagnosis Screening Cancer Colon documented in this encounter Additional Health Concerns Assessment Noted Time PHQ-9 Depression Total Score: 6 06/24/20 13 12:33 PM DEPUTY DISTRICT CUSTOMS DIRECTOR documented as of this encounter Care Teams Patient Intake Representative Relationship Specialty Start Date End Date Madyson Cordon M.D. [address] [place] [address] [place] [address] PCP - General Family Medicine 12/31/23 07/22/24 documented as of this encounter
--- OUTSIDE RECORDS SUMMARY | 2024-07-29 20:19 | XMS_ITS | Referral Summary ---
Author Organization [facility] Address [address] [place] [address] Care Team Providers Care Picker Tender Helper Name Role Phone None Reported, Pcp Primary Care Provider Unavail able Source Comments Patient records contain information from all sites at [facility]. For routine questions regarding patient records, call [phone] during business hours, M-F 8:00 AM - 5:00 PM Central Time. Record requests for emergency care only can be directed to [phone] at any time.[facility] Encounters Date Type Department Care Team Description 07/21/2024 Orders Only [facility] [address] [place] [phone] Madyson Cordon M.D. Screening Cancer Colon 06/10/2024 Orders Only [facility] Madyson Cordon M.D. Screening Mammogram Breast Cancer from Last 3 Months Allergies Active Allergy [...] Hypertension Chronic 08/24/2011 Overview (11/27/2016): Hypertension Immunizations Immunization Administration Dates Next Due DT, [...] on file Legal Sex Female 7:01 PM BENEFITS ADMINISTRATOR Gender Identity Not on file Sexual Orientation Not on file Last Filed Vital Signs Vital Sign Reading Time Taken Comments Blood Pressure 109/74 01/14/2024 11:18 AM CDT av erage Pulse 96 01/14/2024 11:18 AM CDT Temperature 36 C (96.8 F) 01/14/2024 11:18 AM CDT Respiratory Rate 16 01/14/2024 11:18 AM CDT Oxygen Saturation 97% 05/23/2021 10:30 PM BENEFITS ADMINISTRATOR Inhaled Oxygen Concentration - - Weight 102 kg (225 lb 10.3 oz) 01/14/2024 11:18 AM CDT Height 169 cm (5' 6.54) 01/14/2024 11:18 AM CDT Body Mass Index 35.84 01/14/2024 11:18 AM CDT Plan of Treatment Not on file Procedures Procedure Name Priority Date/Time Associated Diagnosis Comments COMPREHENSIVE METABOLIC PANEL, S/P Routine 01/06/2013 12:27 PM CDT OUTSIDE MG MAMMOGRAM Routine 08/03/2008 10:27 AM BENEFITS ADMINISTRATOR from Last 3 Months or Most Recently [...] * Outside MG Mammogram (08/03/2008 10:27 AM BENEFITS ADMINISTRATOR) 08/03/2008 10:2 7 AM BENEFITS ADMINISTRATOR Addenda Addendum by ProviderIona M.D. on 08/03/2008 10:27 AM BENEFITS ADMINISTRATOR ODM^^^MCR XR MAMMO BILAT SCREEN FFDM 08/03/2008 10:27:00 Historical Provider IMG BI PROCEDURES Final Resu lt Performing Organization Address City/[facility]/ZIP Co de Phone Number [facility] [address] [place] [address] from Last 3 Months or Most Recently Relevant to Health Maintenance Insurance MEDICA Care Teams Picker Tender Helper Relationship Specialty Start Date End Date None Reported, Pcp PCP - General Family Medicine 07/23/24
--- OUTSIDE RECORDS SUMMARY | 2024-07-29 20:19 | XMS_ITS ---
Author Organization [facility] Address [address] [place] [address] Care Team Providers Care Pharmacy Technician Inpatient Name Role Phone Unavailable Unavailable Unavailable Surgery Details Not on file Complications Check Surgery Details section. Procedure Estimated Blood Loss Check Surgery Details section. Procedure Findings Check Surgery Details section. Procedure Specimens Taken Check Surgery Details section.
[2024-07-29 20:29] VITALS: BP 119/83; PULSE 83; RESP 16; TEMP 36.8; O2SAT 97; BMI 36.0
--- NOTE | 2024-07-29 20:51 | CRLHL7_ITS ---
For Patients: As a result of the Century Cures Act, medical imaging exams and procedure reports are released immediately into your electronic medical record. You may view this report before your referring provider. If you have questions, please contact your health care provider. INDICATION: Ventral hernia, concern for strangulation. TECHNIQUE: CT abdomen and pelvis acquired with 100 cc Isovue 370 IV contrast. COMPARISON: February 13, 2023. FINDINGS: Lower chest: Scattered atelectasis. Small hiatal hernia. Liver: Mild decreased hepatic attenuation, possibly steatosis.. No suspicious masses. Gallbladder and bile ducts: Cholelithiasis without acute cholecystitis. Pancreas: Unremarkable. No mass or inflammation. Spleen: Unremarkable. Normal in size. No masses. Adrenal glands: Tiny left adrenal adenoma. Kidneys: Unremarkable. No suspicious masses, stones, or hydronephrosis. GI tract: Moderate colonic stool burden. Colonic diverticulosis without diverticulitis. Normal in caliber. No sign of mass or inflammation. Normal appendix. Vasculature: Abdominal aorta is normal in caliber. Mesenteric arteries are patent. Lymph nodes: No lymphadenopathy. Peritoneum/Abdominal Wall: Moderate fat containing umbilical hernia with interval development of some fluid within the hernia sac. No free air or significant free fluid. Pelvis: Unremarkable. Bones: Unremarkable for age. IMPRESSION: Moderate fat containing umbilical hernia with interval development of some fluid within the hernia sac likely a source of pain. However, no bowel containing hernia or CT evidence of strangulation as questioned. Moderate colonic stool burden. Colonic diverticulosis without diverticulitis. Additional chronic findings as above. Please note that all CT scans at this facility use dose modulation, iterative reconstruction, and/or weight-based dosing when appropriate to reduce radiation dose to as low as reasonably achievable. Dictated by Ash Hernández MD @ 07/29/2024 10:23:35 PM (Electronically Signed)
--- NOTE | 2024-07-29 20:53 | CRLHL7_ITS ---
For Patients: As a result of the Cures Act, medical imaging exams and procedure reports are released immediately into your electronic medical record. You may view this report before your referring provider. If you have questions, please contact your health care provider. INDICATION: Altered mental status. TECHNIQUE: CT head without contrast. COMPARISON: None. FINDINGS: CSF spaces: Within normal limits for age. Brain parenchyma and extra-axial spaces: The charles-white differentiation is normal. No sign of mass, hemorrhage, or midline shift. No extra-axial fluid collection. Skull base and calvarium: The visualized paranasal sinuses and mastoid air cells demonstrate no acute or significant findings. The visualized orbits are grossly unremarkable. No skull fractures. IMPRESSION: No acute intracranial abnormality on this noncontrast study. Please note that all CT scans at this facility use dose modulation, iterative reconstruction, and/or weight-based dosing when appropriate to reduce radiation dose to as low as reasonably achievable. Dictated by Ash Hernández MD @ 07/29/2024 10:18:07 PM (Electronically Signed)
[2024-07-29 21:16] LABS: Basophils Absolute Auto 0.03 K/uL (0.00-0.30); Basophils Percent Auto 0.3 % (0.0-3.0); Eosinophils Absolute Auto 0.14 K/uL (0.00-0.50); Eosinophils Percent Auto 1.5 % (0.0-7.0); Hematocrit 44.8 % (33.0-51.0); Hemoglobin* 14.7 gm/dL (12.0-16.0); Immature Granulocytes Abs Auto 0.01 K/uL (0.00-0.30); Immature Granulocytes Pct Auto 0.1 %; Lymphocytes Absolute Auto 3.21 K/uL (0.90-2.90); Lymphocytes Percent Auto 35.3 % (20-44); Mean Corpuscular HGB Conc 33 gm/dL (32-36); Mean Corpuscular Hemoglobin 30 pg (26-34); Mean Corpuscular Volume 93 fL (80-100); Neutrophils Absolute Auto 4.97 K/uL (1.7-7.0); Neutrophils Percent Auto 54.8 % (42.0-72.0); Platelet Count* 368 K/uL (140-440); Red Blood Count 4.83 m/uL (4.00-5.20); White Blood Count* 9.09 K/uL (4.50-11.00)
[2024-07-29 21:17] LABS: Slide Review Reflex No
--- OUTSIDE RECORDS SUMMARY | 2024-07-29 21:19 | XMS_ITS | Clinical Summary ---
Author Organization [facility] Address [address] [place] [address] Care Team Providers Care Coil Winder Repair Name Role Phone Needs Pcp, Assignment Primary Care Provider [phone] Source Comments You are receiving this document as you are listed as the primary care provider,follow-up provider, or the patient has been referred to you for consultation.This is in compliance with the Medicare and[facility] Hospital[facility] EHR Incentive Program,which states Providers who transition their patient to another setting of careor provider of care or refers their patient to another provider of care shouldprovide summary care record for each transition of care or referral. Take [employer] Home Taxi Allergies Active Allergy Reactions Criticality Noted Date [...] Essential hypertension 03/12/2002 Overview (04/07/2015): [facility] Tourette's disorder 03/12/2002 Pruritic disorder 03/12/2002 Overview (04/07/2015): [facility] Breast cancer Overview (02/08/2016): Right Breast CA Psychiatric problem Overview (08/04/2021): Depression, ?schizoaffective d/o Immunizations Name Administration Dates Next Due DT Ped 12/13/1987 Flu Vac (3+ yrs) 08/24/2005 HepA-HepB (TWINRIX, 18+ yrs) 04/24/2016 HepB Adult (Engerix-B, 20+ y rs, 3 dose series) 08/25/2015,06/23/2015 Influenza IIV4 (Quadrivalent ) 0.5mL (99986) 05/07/2020,04/23/2018,03/12/2017,2015,06/23/2015,05/19/2013,04/22/2007,1 07/14/2000 Influenza aIIV3 65+ Years (Fluad) [...] at delivery Heart Attack Maternal Grandfather of [place] at 65 Heart Attack Paternal Grandfather of [...] CREATININE / GFR Routine 08/17/2020 8:30 AM BIODIESEL TECHNOLOGY MANAGER Type 2 diabetes mellitus without complication, without long-term current use of insulin (HRC) Essential hypertension LIPID PANEL & DIRECT LDL (IF NEEDED) Routine 08/17/2020 8:30 AM BIODIESEL TECHNOLOGY MANAGER Hyperlipidemia, unspecified hyperlipidemia type HGB A1C Routine 08/17/2020 8:30 AM BIODIESEL TECHNOLOGY MANAGER Type 2 diabetes mellitus without complication, [...] and Direct LDL(If Needed) (08/17/2020 8:30 AM [facility]) Cholesterol 184 0 - 199 mg/dL 08/17/2020 9:37 AM [facility] Triglyceride 125 <=149 mg/dL 08/17/2020 9:37 AM [facility] HDL Cholesterol 50 >=40 mg/dL 9:37 AM [facility] LDL, Calculated 109 <130 mg/dL 9:37 AM [facility] Non HDL Chol, Calculated 134 mg/dL 08/17/2020 9:37 AM [facility] Cholesterol/HDL Ratio 3.7 08/17/2020 9:37 AM [facility] Hours Fasting 12 08/17/2020 9:37 AM [facility] Blood Venipuncture / Unknown 08/17/2020 8:30 AM BIODIESEL TECHNOLOGY MANAGER 08/17/2020 8:30 AM [facility] Ju Posada APRN, JOB SUPERINTENDENT LAB_1 [facility] [address] [place] [address], [facility] [phone] * Creatinine / GFR (08/17/2020 8:30 AM BIODIESEL TECHNOLOGY MANAGER) Creatinine 0.60 0.55 - 1.02 mg/dL 08/17/2020 9:37 AM [facility] GFR, Estimated >60 >60 mL/min/1.7 3m2 08/17/2020 9:37 AM [facility] Blood Venipuncture / Unknown 08/17/2020 8:30 AM BIODIESEL TECHNOLOGY MANAGER 08/17/2020 8:30 AM BIODIESEL TECHNOLOGY MANAGER Ju Posada APRN, CNP LAB_1 Performing Organization Address [facility]/ZIP Co de Phone Number [facility] [address] [place] [address], [facility] [phone] * (ABNORMAL) Hgb A1C (08/17/2020 8:30 AM BIODIESEL TECHNOLOGY MANAGER) Hemoglobin A1C 6.5(H) <=5.6 % 08/17/2020 2:06 PM [facility] Blood Venipuncture / Unknown 08/17/2020 8:30 AM BIODIESEL TECHNOLOGY MANAGER 08/17/2020 8:30 AM BIODIESEL TECHNOLOGY MANAGER Narrative [facility] - 08/17/2020 2:06 PM BIODIESEL TECHNOLOGY MANAGER For patients not previously diagnosed with diabetes: 5.7-6.4%: Increased risk for diabetes 6.5% and greater: Diagnostic for diabetes For patients diagnosed with diabetes: <8.0%: Goal of therapy for ages 18-75 Clinicians may recommend a higher or lower goal for specific individuals. Ju Posada APRN, CNP LAB_1 Performing Organization Address City/[facility]/ZIP Co de Phone Number [facility] [address] [address], [facility] [phone] * MAMMOGRAM SC (07/21/2020) Interface Provider MD AMBRIZ/OTHER/AR * Microalbumin/Creatinine Ratio (12/26/2018 8:25 AM CDT) Albumin, Urine, Random 9.6 mg/L 12/26/2018 9:15 AM CDT [facility] Creatinine, Urine, Random 89 >20 mg/dL 12/26/2018 9:15 AM CDT [facility] Albumin/Creati nine Ratio, Urine, Random 11 <30 mg/g 12/26/2018 9:15 AM CDT [facility] Urine,random 12/26/2018 8:25 AM CDT 12/26/2018 8:25 AM CDT Huyen Regalado PA-C LAB_1 Performing Organization Address City/[facility]/ZIP Co de Phone Number [facility] [address] [place] [address] [phone] * HIV 1/2 Ag/Ab 4th Generation (12/26/2018 8:17 AM CDT) HIV 1/2 Antigen/Antib summer (4th generation) Negative (Non Reactive) Negative (Non Reactive) 12/26/2018 1:09 PM CDT [facility] Comment:HIV-1 p24 Antigen an d HIV-1/HIV-2 Antibody not detected Blood Venipuncture / Unknown 12/26/2018 8:17 AM CDT 12/26/2018 8:17 AM CDT Huyen Regalado PA-C LAB_1 Performing Organization Address City/[facility]/ZIP Co de Phone Number [facility] [address] * Pap Smear (10/12/2015 2:07 PM CDT) 10/12/2015 2:0 7 PM CDT Narrative HP CONVERSION - 10/18/2015 4:00 PM CDT FINAL GYNECOLOGICAL CYTOLOGY REPORT Pathology #: [id number] Date Obtained: 10/12/2015 Date Received: 10/13/2015 INTERPRETATION/RESULTS: [...] and false-negative reports may occur. Performed at [facility], [facility] [place] [address] Transcriptions 08/15/2016 7:40 PM CSTNotes Recorded by [...] 3:35 PM 10/01/2018 3:57 PM Care Teams Coil Winder Repair Relationship Specialty Start Date End Date Needs Pcp, [place] [address] PCP - General 02/01/23
--- OUTSIDE RECORDS SUMMARY | 2024-07-29 21:20 | XMS_ITS ---
Author Name Interface, [id number] lity Address [address] [facility] [address] [address] [facility] Address [address] [facility] [address] [address] Care Team Providers Care Railway Signal Electrician Name Role Phone Ash Hawk Verona Unavailable [...] Lab Address 02/13 Misc other lab See stitch bonding machine tender helper d 02/19 Misc other lab See stitch bonding machine tender helper d Medications Date Name Route Dose Frequency [...]
--- OUTSIDE RECORDS SUMMARY | 2024-07-29 21:20 | XMS_ITS ---
Author Name Interface, [id number] lity Address [address] [facility] [address] [address] Organization [facility] Address [address] [facility] [address] [place] [address] Care Team Providers Care Bushwalking Guide Name Role Phone Darryl Mariano Unavailable Allergies [...] radiation therapy,??and adjuvant chemotherapy, as well as??a separate??ER/[place] positive, HER2 negative breast cancer??in 2014, treated [...] mass and biopsied and revealed ER and [place] positive , strongly, HER-2/federico negative. 3. ??04/14/2015: Invasive ductal carcinoma was identified measuring 1.1 cm, sentinel lymph node negative, ER 100%, NC 70%, HER-2/federico negative by fish., ??Ratio of [...] signed by Darryl Mariano MD 06/13/2023 12:47 BUSINESS PROCESS ARCHITECT
--- OUTSIDE RECORDS SUMMARY | 2024-07-29 21:20 | XMS_ITS ---
Author Name Interface, [id number] lity Address [address] [facility] [address] [address] [facility] Address [address] [facility] [address] [address] Care Team Providers Care Refrigeration Service Inspector Name Role Phone Ash Hawk Verona Unavailable [...] Lab Address 02/13 Misc other lab See java web architect d 02/19 Misc other lab See java web architect d Medications Date Name Route Dose Frequency [...]
--- OUTSIDE RECORDS SUMMARY | 2024-07-29 21:20 | XMS_ITS | Encounter Summary ---
Author Organization [facility] Address [address] [place] [address] Care Team Providers Care Community Health Outreach Worker Name Role Phone Needs Pcp, Assignment Primary Care Provider [phone] Encounter Details Date Type Department Care Team [...] documented as of this encounter Care Teams Community Health Outreach Worker Relationship Specialty Start Date End Date Needs Pcp, [place] [address] PCP - General 02/01/23 documented as of this encounter
--- OUTSIDE RECORDS SUMMARY | 2024-07-29 21:20 | XMS_ITS | Encounter Summary ---
[facility] Address [address] [place] [address] Care Team Providers Care Safety Deposit Supervisor Name Role Phone Needs Pcp, Assignment Primary Care Provider [phone] Encounter Details Date Type Department Care Team (Late st Contact Info) Description 04/17/2013 Scanned History External to External, Provider No address [address] Social History Tobacco Use Types Packs/Day [...] documented as of this encounter Care Teams Safety Deposit Supervisor Relationship Specialty Start Date End Date Needs Pcp, [place] [address] PCP - General 02/01/23 documented as of this encounter
--- OUTSIDE RECORDS SUMMARY | 2024-07-29 21:20 | XMS_ITS | CCD ---
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) Functional Status Date Name Score 05/14/2019 Karnofsky performance status 90 04/03/2019 Karnofsky performance status 90 04/08/2015 Karnofsky performance status 90 10/17/2012 Karnofsky performance status 100 Medications Date Name Route Dose Frequency Instructions Start Date End Date Status Rosuvastatin Calcium Oral oral 1.0 tablet daily active Lisinopril Oral daily a ctive Benztropine Oral oral 1.0 tablet BID inactive 04/03 Atorvastatin Oral PO 1.0 TABLET(S ) daily 04/03 inactive 04/03 Albuterol HFA Inhaler 90 mcg/actuation By inhalation 2.0 INHALATI ON(S) QID PRN 2018 active 04/03 Aspirin Oral PO 1.0 TABLET(S ) daily 04/03 inactive 04/03 Budesonide-Formote rol HFA Inhaler 160 mcg-4.5 mcg/actuation By inhalation 1.0 INHALATI ON(S) BID 04/03 inactive 04/03 Hydrochlorothiazid e Oral PO 1.0 TABLET(S ) as directed 04/03 inactive 04/03 Paliperidone Oral 24 hr Tab PO 1.0 TABLET, SR OSMOTIC PUSH 24HR daily 2018 inactive 11/22 Escitalopram Oral PO 1.0 TABLET(S ) daily 2017 inactive 04/08 Budesonide-Formote rol HFA Inhaler 80 mcg-4.5 mcg/actuation By inhalation 1.0 INHALATI ON(S) as directed 04/08 inactive 04/08 Metformin Oral PO 2.0 TABLET(S ) daily 2014 active Problems Diagnosis Status Date of Diagnosi s Body mass index (BMI) 33.0-33.9, adult Inactive Body mass index (BMI) 31.0-31.9, adult Inactive Body mass index (BMI) 37.0-37.9, adult Inactive Estrogen receptor negative status [ER-] Active Estrogen receptor positive status [ER+] Active Procedures Date Category Name Instructions Status 06/12/2024 Physician Order RTC MD Ordered 06/12/2024 Physician Order Mammogram, horacio amezcua, bilateral breast h/o breast cancer Ordered Social History Date Name Value 06/12/2023 Sex Female
--- OUTSIDE RECORDS SUMMARY | 2024-07-29 21:20 | XMS_ITS | Encounter Summary ---
Author Organization [facility] Address [address] [place] [address] Care Team Providers Care Vise Hand Name Role Phone Needs Pcp, Assignment Primary Care Provider [phone] Encounter Details Date Type Department Care Team (Late st Contact Info) Description 02/05/2013 Correspondence [facility] [address] [place] [address] Mago Cantu MD MY AFTER CARE PLAN [...] documented as of this encounter Care Teams Vise Hand Relationship Specialty Start Date End Date Needs Pcp, [place] [address] PCP - General 02/01/23 documented as of this encounter
--- OUTSIDE RECORDS SUMMARY | 2024-07-29 21:20 | XMS_ITS ---
Author Name Interface, [id number] lity Address [address] [facility] [address] [address] Organization [facility] Address [address] [facility] [address] [place] [address] Care Team Providers Care Patented Hogshead Assembler Name Role Phone Darryl Mariano Unavailable Allergies [...] radiation therapy,??and adjuvant chemotherapy, as well as??a separate??ER/[place] positive, HER2 negative breast cancer??in 2014, treated [...] mass and biopsied and revealed ER and [place] positive , strongly, HER-2/federico negative. 3. ??04/14/2015: Invasive ductal carcinoma was identified measuring 1.1 cm, sentinel lymph node negative, ER 100%, [place] 70%, HER-2/federico negative by fish., ??Ratio of [...] signed by Darryl Mariano MD 06/13/2023 12:47 POUNCING MACHINE OPERATOR
--- OUTSIDE RECORDS SUMMARY | 2024-07-29 21:20 | XMS_ITS | CCD ---
Author Name Interface, [id number] lity Address [address] [facility] [address] [place] [address] [facility] Address [address] [facility] [address] [place] [address] Care Team Providers Care Collection Systems Administrator Name Role Phone Darryl Mariano Unavailable Unavailable Care Plan Reason for Visit Encounters Functional Status Medications Problems Procedures Social History
--- OUTSIDE RECORDS SUMMARY | 2024-07-29 21:20 | XMS_ITS | Encounter Summary ---
Author Organization [facility] Address [address] [place] [address] Care Team Providers Care Slash Trimmer Name Role Phone Needs Pcp, Assignment Primary Care Provider [phone] Encounter Details Date Type Department Care Team (Late st Contact Info) Description 02/05/2013 Outside Hospital External to External, [place] [address] DISCHARGE SUMMARY Social History Tobacco Use Types [...] documented as of this encounter Care Teams Slash Trimmer Relationship Specialty Start Date End Date Needs Pcp, [place] [address] PCP - General 02/01/23 documented as of this encounter
--- OUTSIDE RECORDS SUMMARY | 2024-07-29 21:20 | XMS_ITS | CCD ---
Author Organization Unknown Care Team Providers Care Mobile Sales Expert Name Role Phone [facility] [place] Primary Care Provider Unava ilable Unavailable Chronic Care Management Unavaila ble Summary Purpose DataExchange Insurance Providers Payer name Policy type / Coverage type Covered constitution party ID Effective Begin Date Effective End Date Medicare [place] Medicare Part B [id number] Unknown Unknown [employer] Medicare Part B [id number] Unknown Unknown Family History Family History data not found Medication Administered No Medication Administered data Reason For Visit No Reason For Visit data
--- OUTSIDE RECORDS SUMMARY | 2024-07-29 21:20 | XMS_ITS | CCD ---
Author Organization Unknown Care Team Providers Care Chips Screen Tender Name Role Phone [place], [place] Primary Care Provider Unava ilable Unavailable Chronic Care Management Unavaila ble Summary Purpose DataExchange Insurance Providers Payer name Policy type / Coverage type Covered alliance party ID Effective Begin Date Effective End Date Medicare [place] Medicare Part B [id number] Unknown Unknown [employer] Medicare Part B [id number] Unknown Unknown Family History Family History data not found Medication Administered No Medication Administered data Reason For Visit No Reason For Visit data
[2024-07-29 21:29] LABS: Albumin* 4.4 g/dL (3.3-5.0); Chloride* 101 mmol/L (96-114)
[2024-07-29 21:30] LABS: Potassium* 3.6 mmol/L (3.6-5.1); Sodium* 135 mmol/L (135-149)
[2024-07-29 21:32] LABS: Alkaline Phosphatase* 87 U/L (40-150); Anion Gap 9 mEq/L (7-15); Aspartate Amino Transferase* 20 U/L (12-35); Bilirubin Total* 0.4 mg/dL (0.1-1.5); Blood Urea Nitrogen* 10 mg/dL (7-30); Carbon Dioxide* 25 mmol/L (20-32); Creatinine* 0.6 mg/dL (0.5-1.5); Est. Creatinine Clearance* 94.51; Estimated Glomerular Filt Rate 103 ml/min; Total Protein* 7.2 g/dL (6.0-8.3)
[2024-07-29 21:33] LABS: Alanine Aminotransferase* 28 U/L (4-35); Calcium* 9.5 mg/dL (8.4-10.6); Glucose* 108 mg/dL (60-115); Lipase* 95 U/L (23-300)
--- NOTE | 2024-07-29 21:36 | ED_ITS ---
HPI - General Adult General Date Seen: 07/29/24 Chief complaint: Unspecified Complaint, Adult Stated complaint: says she is missing her internal organs Time Seen by Provider: 07/29/24 20:42 Source: patient Mode of arrival: ambulatory History of Present Illness HPI narrative: Patient is a 59-year-old female history of schizoaffective disorder presenting to the emergency department because she states ?I am missing my internal organs.?When I speak to her she states she had previous imaging that shows all her organs are in place and now they are gone. She cannot explain to to me why she believes they are gone she states all her internal organs are gone. I continued to ask her what makes her think this is she does states because they are. Having difficulty getting any information out of her. Eventually she tells me she has some abdominal pain and I do notice she has have a hernia that appears to be strangulated. She states her pain is been going on since this morning. Unable to the tell me any other concerns. Related Data Home Medications ?Medication ?Instructions ?Recorded ?Confirmed lancets (Accu-Chek Softclix 07/11/22 03/13/24 Lancets) lisinopril 10 mg tablet 10 mg PO DAILY 07/11/22 03/13/24 metformin 500 mg tablet,extended 1,000 mg PO DAILY 07/11/22 03/13/24 release 24 hr albuterol sulfate 90 mcg/actuation 1 puff inhalation PRN 08/09/22 03/13/24 aerosol inhaler (Ventolin HFA) blood sugar diagnostic (Accu-Chek 01/30/23 03/13/24 SmartView Test Strips) fluticasone fur. 200 mcg-umeclid 1 inh inhalation Q24H 02/07/23 03/13/24 62.5 mcg-vilant 25 mcg inhalat.powder (Trelegy Ellipta) montelukast PO 02/07/23 03/13/24 Previous Rx's ?Medication ?Instructions ?Recorded dulaglutide 1.5 mg/0.5 mL 1.5 mg (0.5 mL) subcut QWEEK #2 mL 04/30/23 subcutaneous pen injector (Trulicity) Allergies Allergy/AdvReac Type Severity Reaction Status Date / Time amlodipine Allergy Unknown Edema Verified 03/13/24 07:57 cefaclor Allergy Unknown Rash Verified 03/13/24 07:57 erythromycin base Allergy Unknown Swelling Verified 03/13/24 07:57 of Lip/Tongue/Throat olanzapine Allergy Unknown Swelling Verified 03/13/24 07:57 of Lip/Tongue/Throat quetiapine (From Seroquel) Allergy Unknown Weight Verified 03/13/24 07:57 gain, sleep apnea, irregular heart beat, HTN Sulfa (Sulfonamide Allergy Unknown Rash Verified 03/13/24 07:57 Antibiotics) sulfamethoxazole (From Allergy Unknown Rash Verified 03/13/24 07:57 Septra) trimethoprim (From Septra) Allergy Unknown Rash Verified 03/13/24 07:57 ziprasidone Allergy Unknown Unknown Verified 03/26/24 20:09 Review of Systems Narrative: Pertinent systems reviewed and were negative unless stated in HPI PFSH [facility] Medical History (Updated 07/29/24 @ 23:28 by Florin Dinero MD) Schizoaffective disorder ?F25.9 - Schizoaffective disorder, unspecified (ICD-10) Diabetes mellitus, type II (2014) ?E11.9 - Type 2 diabetes mellitus without complications (ICD-10) Adjustment disorder with anxious mood ?F43.22 - Adjustment disorder with anxiety (ICD-10) TIMOTHY (obstructive sleep apnea) (2013) ?G47.33 - Obstructive sleep apnea (adult) (pediatric) (ICD-10) Moderate persistent asthma ?J45.40 - Moderate persistent asthma, uncomplicated (ICD-10) Stress incontinence ?N39.3 - Stress incontinence (female) (male) (ICD-10) Mixed sleep apnea ?G47.39 - Other sleep apnea (ICD-10) Hyperlipidemia ?E78.5 - Hyperlipidemia, unspecified (ICD-10) Essential hypertension ?I10 - Essential (primary) hypertension (ICD-10) History of breast cancer (2005) ?Z85.3 - Personal history of malignant neoplasm of breast (ICD-10) History of suicide attempt ?Z91.51 - Personal history of suicidal behavior (ICD-10) History of eating disorder ?Z86.59 - Personal history of other mental and behavioral disorders (ICD-10) History of ovarian cyst ?Z87.42 - Personal history of other diseases of the female genital tract (ICD-10) Surgical History History of knee surgery ?Z98.890 - Other specified postprocedural states (ICD-10) History of breast surgery (2006) ?Z98.890 - Other specified postprocedural states (ICD-10) Family History (Updated 07/29/24 @ 23:22 by Florin Dinero MD) Brother Alcohol dependence High blood pressure Obesity Father Diabetes High cholesterol High blood pressure Obesity Mother Heart disease High blood pressure Obesity Social History (Updated 07/29/24 @ 23:23 by Florin Dinero MD) Narrative: [facility] She reports her ex-, Dylan Brooks, or her father, Rich Garcia, would be healthcare power of dish network installer. She does not smoke. She drinks alcohol about 3 times a year. Smoking Status: Never smoker Do you use any of these nicotine containing products: None Second hand tobacco smoke exposure: No How often do you have a drink containing alcohol: never How often do you have six or more drinks on one occasion: Never AUDIT-C Alcohol total score: 0 Non-prescribed substance use: denies use service: No Exam Narrative: Exam Narrative: Const: Well-nourished, Well-developed, in mild distress Eyes: PERRL, no conjunctival injection, and symmetrical lids HENT: Atraumatic external nose and ears. Moist mucous membranes. Neck: Symmetric, trachea midline, No thyromegaly. CVS: RRR, No murmurs or gallops. Peripheral pulses 2+ and equal in all extremities RESP: Unlabored respiratory effort. Clear to auscultation bilaterally. GI: Tender area just above the umbilicus that appears purple around it that is tender to palpation and firm. No rebound or guarding. MSK:Extremities w/o deformity, Normal Active ROM Skin: Warm, Dry. No rashes or lesions. Neuro: Normal Muscle tone, No focal neurological deficits. Psych: Awake, Alert, with no suicidal or homicidal ideation Const: Vital Signs, click to edit/add: Vital Signs - 24 hr 07/29/24 20:29 Temperature 98.3 F Pulse Rate [Left P ulse Oximeter] 83 Respiratory Rate 16 Blood Pressure [Ri ght Upper Arm] 119/83 Pulse Oximetry 97 Oxygen Delivery Me thod Room Air Course Vital Signs Vital signs: Initial Vital Signs Temperature 98.3 F 07/29/24 20:29 Temperature Source Temporal Artery Scan 07/29/24 20:29 Pulse Rate 83 07/29/24 20:29 Pulse Rhythm Regular 07/29/24 20:29 Respiratory Rate 16 07/29/24 20:29 Blood Pressure 119/83 07/29/24 20:29 Blood Pressure Mean 95 07/29/24 20:29 Blood Pressure Position Sitting 07/29/24 20:29 Pulse Oximetry 97 07/29/24 20:29 Oxygen Delivery Method Room Air 07/29/24 20:29 Vital Signs Temperature 98.3 F 07/29/24 20:29 Pulse Rate 83 07/29/24 20:29 Respiratory Rate 16 07/29/24 20:29 Blood Pressure 119/83 07/29/24 20:29 Pulse Oximetry 97 07/29/24 20:29 Oxygen Delivery Method Room Air 07/29/24 20:29 Temperature 98.3 F 07/29/24 20:29 Pulse Rate 83 07/29/24 20:29 Respiratory Rate 16 07/29/24 20:29 Blood Pressure 119/83 07/29/24 20:29 Pulse Oximetry 97 07/29/24 20:29 Oxygen Delivery Method Room Air 07/29/24 20:29 Medications Administered Medications: Generic Name Dose Route Start Last Admin Trade Name Freq PRN Reason Stop Dose Admin Lactated Ringer's 1,000 mls @ 125 mls/hr 07/29/24 23:10 07/30/24 01:00 Lactated Ringers 1000 Ml IV 125 mls/hr .Q8H NITO Administration Medical Decision Making MDM Narrative Medical decision making narrative: Patient is a 59-year-old female who believes she has no internal organs. I eventually was able to get out of her the she started having abdominal pain this morning. I do the abdominal exam quickly noticed an area right above her umbilicus that appears to be a strangulated hernia. I will hold off on any reduction until CT scan can be done to confirm there is no strangulated bowel. I did also order CT scan the head to make sure there is no intracranial abnormalities cell explain her current presentation. Will Order a CBC, CMP, primary care creatinine, lipase. As soon as I saw the potential strangulated hernia I called the on-call general surgeon, Dr. Suárez. She recommends CT scan in to call her back when it is done. Lab work shows no concerning abnormalities. While away the CT scan I did final the patient lives independently at [address] [facility] and I also spoke to her father who currently lives in [place] during the winter. He states that she has been saying her organs have been missing for several years and that is not new for her. Does state as far as he is aware she is able to make her own medical decisions and he also states that if we think she needs surgery that he think she should have it. CT scan was done and I spoke to Dr. Suárez again. It appears to show only a fat containing hernia. She does state I can try to reduce it if possible but otherwise she believes she can do surgery tomorrow. She is recommending surgery due to the patient's psychiatric history and concerned she will not come back when needed. After putting her in trend [place] using ice pack I was able to partially reduce the hernia. Lab Data Labs: Lab Results 07/29/24 Range/Units 21:10 WBC 9.09 (4.50-11.00) K/uL RBC 4.83 (4.00-5.20) m/uL Hgb 14.7 (12.0-16.0) gm/dL Hct 44.8 (33.0-51.0) % MCV 93 (80-100) fL MCH 30 (26-34) pg MCHC 33 (32-36) gm/dL RDW Coeff of Iveth 13.0 (11.5-15.5) % Plt Count 368 (140-440) K/uL Neut % (Auto) 54.8 (42.0-72.0) % Lymph % (Auto) 35.3 (20-44) % [place] % (Auto) 8.0 (0.0-11.0) % Eos % (Auto) 1.5 (0.0-7.0) % Baso % (Auto) 0.3 (0.0-3.0) % Neut # (Auto) 4.97 (1.7-7.0) K/uL Lymph # (Auto) 3.21 H (0.90-2.90) K/uL [place] # (Auto) 0.70 (0.00-0.90) K/UL Eos # (Auto) 0.14 (0.00-0.50) K/uL Baso # (Auto) 0.03 (0.00-0.30) K/uL Abs Immat Gran (auto) 0.01 (0.00-0.30) K/uL Imm/Tot Granulo (auto) 0.1 % Sodium 135 (135-149) mmol/L Potassium 3.6 (3.6-5.1) mmol/L Chloride 101 (96-114) mmol/L Carbon Dioxide 25 (20-32) mmol/L Anion Gap 9 (7-15) mEq/L BUN 10 (7-30) mg/dL Creatinine 0.6 (0.5-1.5) mg/dL Estimated Creat Clear 94.51 Estimated GFR 103 ml/min Glucose 108 (60-115) mg/dL Calcium 9.5 (8.4-10.6) mg/dL Total Bilirubin 0.4 (0.1-1.5) mg/dL AST 20 (12-35) U/L ALT 28 (4-35) U/L Alkaline Phosphatase 87 (40-150) U/L Total Protein 7.2 (6.0-8.3) g/dL Albumin 4.4 (3.3-5.0) g/dL Lipase 95 (23-300) U/L POC Creatinine 0.6 (0.6-1.3) mg/dl Imaging Data CT scan - head: Radiologist's impression: No acute intracranial abnormality on this noncontrast study. Please note that all CT scans at this facility use dose modulation, iterative reconstruction, and/or weight-based dosing when appropriate to reduce radiation dose to as low as reasonably achievable. Dictated by Ash Hernández MD @ 07/29/2024 10:18:[address] scan abdomen pelvis: Attestation: I have reviewed the pertinent imaging results. Radiologist's impression: Moderate fat containing umbilical hernia with interval development of some fluid within the hernia sac likely a source of pain. However, no bowel containing hernia or CT evidence of strangulation as questioned. Moderate colonic stool burden. Colonic diverticulosis without diverticulitis. Additional chronic findings as above. Please note that all CT scans at this facility use dose modulation, iterative reconstruction, and/or weight-based dosing when appropriate to reduce radiation dose to as low as reasonably achievable. Dictated by Ash Hernández MD @ 07/29/2024 10:23:35 PM Discharge Plan Discharge Clinical Impression: Incarcerated hernia Patient Disposition: Admitted As Observation Condition: Stable
[2024-07-29 22:09] LABS: Creatinine, Point-of-Care* 0.6 mg/dl (0.6-1.3)
--- NOTE | 2024-07-29 23:14 | P.IMHP_ITS ---
Hospitalist- H&P: HPI History of Present Illness Date Seen: 07/29/24 Chief complaint: says she is missing her internal organs Narrative: Amparo Soliman (AKA Amparo Garcia) is a 59 year old female with schizoaffective disorder, obesity, sleep apnea, asthma, diabetes, hypertension admitted through the emergency department with periumbilical abdominal pain and missing internal organs. Concern about missing internal organs is a longstanding problem for her. She is uncertain how long she has had the periumbilical pain. Emergency department notes indicate that it started this morning. She has not had vomiting, diarrhea, constipation. No fever. In the emergency department she was found to have a fat containing umbilical hernia. This could not be reduced in the emergency department and she was admitted for surgical management. She reports no other symptoms of illness. Previous surgery includes breast lumpectomy for breast cancer on 2 occasions 9 years ago and 19 years ago. She understands her treatment to a been curative. She has also had dental surgery. Review of Systems Narrative: Review of systems other than rise unremarkable except as noted above [facility] Medical History (Updated 07/29/24 @ 23:28 by Florin Dinero MD) Schizoaffective disorder ?F25.9 - Schizoaffective disorder, unspecified (ICD-10) Diabetes mellitus, type II (2014) ?E11.9 - Type 2 diabetes mellitus without complications (ICD-10) Adjustment disorder with anxious mood ?F43.22 - Adjustment disorder with anxiety (ICD-10) TIMOTHY (obstructive sleep apnea) (2013) ?G47.33 - Obstructive sleep apnea (adult) (pediatric) (ICD-10) Moderate persistent asthma ?J45.40 - Moderate persistent asthma, uncomplicated (ICD-10) Stress incontinence ?N39.3 - Stress incontinence (female) (male) (ICD-10) Mixed sleep apnea ?G47.39 - Other sleep apnea (ICD-10) Hyperlipidemia ?E78.5 - Hyperlipidemia, unspecified (ICD-10) Essential hypertension ?I10 - Essential (primary) hypertension (ICD-10) History of breast cancer (2005) ?Z85.3 - Personal history of malignant neoplasm of breast (ICD-10) History of suicide attempt ?Z91.51 - Personal history of suicidal behavior (ICD-10) History of eating disorder ?Z86.59 - Personal history of other mental and behavioral disorders (ICD-10) History of ovarian cyst ?Z87.42 - Personal history of other diseases of the female genital tract (ICD-10) Surgical History History of knee surgery ?Z98.890 - Other specified postprocedural states (ICD-10) History of breast surgery (2005) ?Z98.890 - Other specified postprocedural states (ICD-10) Family History (Updated 07/29/24 @ 23:22 by Florin Dinero MD) Brother Alcohol dependence High blood pressure Obesity Father Diabetes High cholesterol High blood pressure Obesity Mother Heart disease High blood pressure Obesity Social History (Updated 07/29/24 @ 23:23 by Florin Dinero MD) Narrative: She [facility] She reports her ex-, Dylan Brooks, or her father, Rich Garcia, would be healthcare power of animal control officer. She does not smoke. She drinks alcohol about 3 times a year. Smoking Status: Never smoker Do you use any of these nicotine containing products: None Second hand tobacco smoke exposure: No How often do you have a drink containing alcohol: never How often do you have six or more drinks on one occasion: Never AUDIT-C Alcohol total score: 0 Non-prescribed substance use: denies use service: No Meds Home Medications and Allergies Home Medications ?Medication ?Instructions ?Recorded ?Confirmed ?Type lancets (Accu-Chek Softclix 07/11/22 03/13/24 History Lancets) lisinopril 10 mg tablet 10 mg PO DAILY 07/11/22 03/13/24 History metformin 500 mg tablet,extended 1,000 mg PO DAILY 07/11/22 03/13/24 History release 24 hr albuterol sulfate 90 mcg/actuation 1 puff inhalation PRN 08/09/22 03/13/24 History aerosol inhaler (Ventolin HFA) blood sugar diagnostic (Accu-Chek 01/30/23 03/13/24 History SmartView Test Strips) fluticasone fur. 200 mcg-umeclid 1 inh inhalation Q24H 02/07/23 03/13/24 History 62.5 mcg-vilant 25 mcg inhalat.powder (Trelegy Ellipta) montelukast PO 02/07/23 03/13/24 History Allergies Allergy/AdvReac Type Severity Reaction Status Date / Time amlodipine Allergy Unknown Edema Verified 03/13/24 07:57 cefaclor Allergy Unknown Rash Verified 03/13/24 07:57 erythromycin base Allergy Unknown Swelling Verified 03/13/24 07:57 of Lip/Tongue/Throat olanzapine Allergy Unknown Swelling Verified 03/13/24 07:57 of Lip/Tongue/Throat quetiapine (From Seroquel) Allergy Unknown Weight Verified 03/13/24 07:57 gain, sleep apnea, irregular heart beat, HTN Sulfa (Sulfonamide Allergy Unknown Rash Verified 03/13/24 07:57 Antibiotics) sulfamethoxazole (From Allergy Unknown Rash Verified 03/13/24 07:57 Septra) trimethoprim (From Septra) Allergy Unknown Rash Verified 03/13/24 07:57 ziprasidone Allergy Unknown Unknown Verified 03/26/24 20:09 Exam Narrative: Exam Narrative: She is alert, pleasant and in no distress. Pleasant and cooperative. Head is normal. Eyes normal. Oropharynx with small airway. Neck is supple without mass or adenopathy. Respirations are clear to auscultation. Cardiovascular: S1, S2, regular rate and rhythm. Abdomen: Bowel sounds are present. Abdomen is soft. She has a tender umbilical mass which has overlying erythema. It palpates as a umbilical hernia and is not easily reduced. It is tender to touch and painful when I attempt to reduce it. No other mass or tenderness. External genitalia normal. Extremities with 1+ edema in both ankles. Intact pedal pu lses. No rash Const: Vital Signs, click to edit/add: Vital Signs - 24 hr 07/29/24 20:29 Temperature 98.3 F Pulse Rate [Left P ulse Oximeter] 83 Respiratory Rate 16 Blood Pressure [Ri ght Upper Arm] 119/83 Pulse Oximetry 97 Oxygen Delivery Me thod Room Air Documenting provider has reviewed patient's vital signs: yes Hospitalist - H&P: Result Labs Labs: Short CBC 07/29/24 Range/Units 21:10 WBC 9.09 (4.50-11.00) K/uL Hgb 14.7 (12.0-16.0) gm/dL Hct 44.8 (33.0-51.0) % Plt Count 368 (140-440) K/uL BMP 07/29/24 21:10 Sodium 135 Potassium 3.6 Chloride 101 Carbon Dioxide 25 BUN 10 Creatinine 0.6 Glucose 108 Calcium 9.5 Liver Function 07/29/24 Range/Units 21:10 Total Bilirubin 0.4 (0.1-1.5) mg/dL AST 20 (12-35) U/L ALT 28 (4-35) U/L Alkaline Phosphatase 87 (40-150) U/L Albumin 4.4 (3.3-5.0) g/dL Assessment and Plan Assessment and plan (1) Incarcerated hernia: Problem comment: Umbilical hernia with incarcerated fat. Planned surgery with Dr. Suárez tomorrow Status: Acute (2) Mixed sleep apnea: Problem comment: Outside sleep study, 05/18/2015 (scanned in) from [facility], diagnosed both central sleep apnea and obstructive sleep apnea, recommended to use BiPAP. Monitor for postoperative complications/hypoxia Status: Acute (3) Essential hypertension: Problem comment: Monitor. Restart lisinopril as needed Status: Acute (4) Diabetes mellitus, type II: Problem comment: Dxed 2014, on metformin, Trulicity added by internal medicine consult (when in hospital for psychiatric evaluation) 09/27. Diabetes is been well controlled Status: Chronic (5) Schizoaffective disorder: Problem comment: Not currently on any treatment for schizoaffective disorder. She did verbalize to ER staff some odd ideas about her missing internal organs but otherwise has been completely pleasant, appropriate and cooperative. Status: Chronic Plan Patient is admitted to the hospital for surgical management of incarcerated umbilical hernia. Perioperatively will do some monitoring of her chronic medical problems and medications and manage any complications at occur postoperatively. Total Time Spent Total Time Spent: Total time spent is 65 minutes in review of records and discussing with patient and other providers ongoing evaluation management of umbilical hernia
[2024-07-30] VITALS (15 sets, daily range): BP systolic 113–154; BP diastolic 68–112; PULSE 74–109; RESP 16–18; TEMP 35.9–37.1; O2SAT 94–99; BMI 35.6
[2024-07-30] MEDS: LACTATED RINGERS 1000 ML 1,000 ML 125 ML IV (01:00)
--- NOTE | 2024-07-30 06:42 | PC.NURSE ---
End of shift [id number]: Pt AxOx4, cooperative, and pleasant. Pt arrived to unit @ 2335. Pt denies pain throughout the shift. Pt requested to go to bed as soon as machine sign writer completed admission information. Pt slept for majority of the night. LR running @ 125. Pt woke up @ 0545 stating I need to go, I just need to do something outpatient and skip the surgery. Recreation Program Coordinator utilized therapeutic communication regarding speaking with the surgeon in the morning as far as options. Pt agreed and went back to sleep. Pt INDEP to bathroom, tolerating well. Pt tolerating NPO diet well. Pt appears resting with call light in reach.
[2024-07-30] MEDS: LACTATED RINGERS 500 ML 500 ML 125 ML IV ×2 (09:33→10:26)
--- NOTE | 2024-07-30 09:38 | PM.GSCN ---
History of Present Illness Consult details Date Seen: 07/30/24 Consult date: 07/30/24 Narrative: The patient is a 59-year-old female who presented to the emergency department yesterday because she states that she was missing her internal organs. She states that this all started when she had food laced with which she believed to be cockroach poison when she was 11 or 12. When asked if she also came to the emergency department because of abdominal pain, she said that yes she has had pain around her umbilicus for 24-48 hours. She has not had any fevers, nausea or vomiting. No change in bowel habits. She has not had abdominal surgery before. The patient is pleasant and oriented and is able to recount her medical history appropriately, with injected comments about this concern for missing organs. Her father was contacted last evening to confirm that the patient does make her own medical decisions and does perseverate on missing organs and has done so for many years. [facility] Medical History (Updated 07/29/24 @ 23:28 by Florin Dinero MD) Schizoaffective disorder ?F25.9 - Schizoaffective disorder, unspecified (ICD-10) Diabetes mellitus, type II (2014) ?E11.9 - Type 2 diabetes mellitus without complications (ICD-10) Adjustment disorder with anxious mood ?F43.22 - Adjustment disorder with anxiety (ICD-10) TIMOTHY (obstructive sleep apnea) (2013) ?G47.33 - Obstructive sleep apnea (adult) (pediatric) (ICD-10) Moderate persistent asthma ?J45.40 - Moderate persistent asthma, uncomplicated (ICD-10) Stress incontinence ?N39.3 - Stress incontinence (female) (male) (ICD-10) Mixed sleep apnea ?G47.39 - Other sleep apnea (ICD-10) Hyperlipidemia ?E78.5 - Hyperlipidemia, unspecified (ICD-10) Essential hypertension ?I10 - Essential (primary) hypertension (ICD-10) History of breast cancer (2005) ?Z85.3 - Personal history of malignant neoplasm of breast (ICD-10) History of suicide attempt ?Z91.51 - Personal history of suicidal behavior (ICD-10) History of eating disorder ?Z86.59 - Personal history of other mental and behavioral disorders (ICD-10) History of ovarian cyst ?Z87.42 - Personal history of other diseases of the female genital tract (ICD-10) Surgical History History of knee surgery ?Z98.890 - Other specified postprocedural states (ICD-10) History of breast surgery (2005) ?Z98.890 - Other specified postprocedural states (ICD-10) Family History (Updated 07/29/24 @ 23:22 by Florin Dinero MD) Brother Alcohol dependence High blood pressure Obesity Father Diabetes High cholesterol High blood pressure Obesity Mother Heart disease High blood pressure Obesity Social History (Updated 07/29/24 @ 23:23 by Florin Dinero MD) Narrative: She lives alone at [address] [facility] [address]. She reports her ex-, Dylan Brooks, or her father, Rich Garcia, would be healthcare power of consumer attorney. She does not smoke. She drinks alcohol about 3 times a year. What is your current living situation?: I presently have a place to live Problems where you live: no known problems Problems where you live details: NA In the past 12 months, utilities in danger of being shut off: no In past 12 months, lack of transportation kept you from medical appts, meetings, work, or getting things needed for daily living: no In the past 12 mos, have been you worried that your food would run out before you had money to buy more?: never true In the past 12 mos, the food you bought just didn't last and you didn't have money to buy more?: never true Highest level of school completed/degree received: Master's degree Smoking Status: Never smoker Do you use any of these nicotine containing products: None Second hand tobacco smoke exposure: No How often do you have a drink containing alcohol: monthly or less Alcohol type: beer and wine Alcohol type details: 1-3x year How often do you have six or more drinks on one occasion: Never AUDIT-C Alcohol total score: 1 Non-prescribed substance use: denies use How often does anyone, including family, friends and others, physically hurt you: never How often does anyone, including family, friends and others, insult or talk down to you: never How often does anyone, including family, friends and others, threaten you with harm: never How often does anyone, including family, friends and others, scream or curse at you: never service: No Meds Home Medications and Allergies Home Medications ?Medication ?Instructions ?Recorded ?Confirmed ?Type lancets (Accu-Chek Softclix 07/11/22 07/30/24 History Lancets) lisinopril 10 mg tablet 10 mg PO DAILY 07/11/22 07/30/24 History metformin 500 mg tablet,extended 1,000 mg PO DAILY 07/11/22 07/30/24 History release 24 hr albuterol sulfate 90 mcg/actuation 2 puff inhalation Q4H PRN 08/09/22 07/30/24 History aerosol inhaler (Ventolin HFA) blood sugar diagnostic (Accu-Chek 01/30/23 07/30/24 History SmartView Test Strips) fluticasone fur. 200 mcg-umeclid 1 inh inhalation Q24H 02/07/23 07/30/24 History 62.5 mcg-vilant 25 mcg inhalat.powder (Trelegy Ellipta) Allergies Allergy/AdvReac Type Severity Reaction Status Date / Time amlodipine Allergy Unknown Edema Verified 03/13/24 07:57 cefaclor Allergy Unknown Rash Verified 03/13/24 07:57 erythromycin base Allergy Unknown Swelling Verified 03/13/24 07:57 of Lip/Tongue/Throat olanzapine Allergy Unknown Swelling Verified 03/13/24 07:57 of Lip/Tongue/Throat quetiapine (From Seroquel) Allergy Unknown Weight Verified 03/13/24 07:57 gain, sleep apnea, irregular heart beat, HTN Sulfa (Sulfonamide Allergy Unknown Rash Verified 03/13/24 07:57 Antibiotics) sulfamethoxazole (From Allergy Unknown Rash Verified 03/13/24 07:57 Septra) trimethoprim (From Septra) Allergy Unknown Rash Verified 03/13/24 07:57 ziprasidone Allergy Unknown Unknown Verified 03/26/24 20:09 Exam Narrative: Exam Narrative: General appearance: Alert, cooperative, and in no distress Eyes: PERRLA, eye lids clear, and sclera white HENT Head: Normocephalic Ears: External ears normal Pulmonary: Breathing nonlabored on room air Cardiovascular Heart: Regular rate Extremities: warm and well perfused Gastrointestinal Abdominal: Mildly protuberant. No scars. There is a hernia noted just superior to the umbilicus. The skin overlying is faintly red. This is tender to palpation however patient denies significant pain with palpation. Musculoskeletal: Extremities: Upper: Both upper extremities have normal joint range of motion and intact strength. Lower: Both lower extremities have normal joint range of motion and intact strength. Skin: Normal skin color, texture, and turgor. Neurologic: No focal deficits Psychiatric: Alert, and cooperative. Patient is surprisingly oriented and knowledgeable about her history despite the perseveration on her concern about missing organs. Const: Vital Signs, click to edit/add: Vital Signs - 24 hr 07/29/24 20:29 07/30/24 01:08 07/30/24 01:08 Temperature 98.3 F 97.7 F Pulse Rate [Left P ulse Oximeter] 83 Pulse Rate [Pulse Oximeter] 101 H Respiratory Rate 16 16 16 Blood Pressure [Le ft Arm] 139/90 H Blood Pressure [Ri ght Upper Arm] 119/83 Pulse Oximetry 97 99 99 Oxygen Delivery Me thod Room Air Room Air Room Air 07/30/24 03:00 07/30/24 08:47 Temperature 98.7 F 97.4 F L Pulse Rate [Left P ulse Oximeter] Pulse Rate [Pulse Oximeter] 89 95 Respiratory Rate 16 18 Blood Pressure [Le ft Arm] 113/68 135/82 Blood Pressure [Ri ght Upper Arm] Pulse Oximetry 94 96 Oxygen Delivery Me thod Room Air Room Air Results Labs Labs: Abnormal lab results 07/29/24 Range/Units 21:10 Lymph # (Auto) 3.21 H (0.90-2.90) K/uL Diabetes panel 07/29/24 Range/Units 21:10 Sodium 135 (135-149) mmol/L Potassium 3.6 (3.6-5.1) mmol/L Chloride 101 (96-114) mmol/L Carbon Dioxide 25 (20-32) mmol/L BUN 10 (7-30) mg/dL Creatinine 0.6 (0.5-1.5) mg/dL Glucose 108 (60-115) mg/dL Calcium 9.5 (8.4-10.6) mg/dL AST 20 (12-35) U/L ALT 28 (4-35) U/L Alkaline Phosphatase 87 (40-150) U/L Total Protein 7.2 (6.0-8.3) g/dL Albumin 4.4 (3.3-5.0) g/dL Calcium panel 07/29/24 Range/Units 21:10 Calcium 9.5 (8.4-10.6) mg/dL Albumin 4.4 (3.3-5.0) g/dL Pituitary panel 07/29/24 Range/Units 21:10 Sodium 135 (135-149) mmol/L Potassium 3.6 (3.6-5.1) mmol/L Chloride 101 (96-114) mmol/L Carbon Dioxide 25 (20-32) mmol/L BUN 10 (7-30) mg/dL Creatinine 0.6 (0.5-1.5) mg/dL Glucose 108 (60-115) mg/dL Calcium 9.5 (8.4-10.6) mg/dL Adrenal panel 07/29/24 Range/Units 21:10 Sodium 135 (135-149) mmol/L Potassium 3.6 (3.6-5.1) mmol/L Chloride 101 (96-114) mmol/L Carbon Dioxide 25 (20-32) mmol/L BUN 10 (7-30) mg/dL Creatinine 0.6 (0.5-1.5) mg/dL Glucose 108 (60-115) mg/dL Calcium 9.5 (8.4-10.6) mg/dL Total Bilirubin 0.4 (0.1-1.5) mg/dL AST 20 (12-35) U/L ALT 28 (4-35) U/L Alkaline Phosphatase 87 (40-150) U/L Total Protein 7.2 (6.0-8.3) g/dL Albumin 4.4 (3.3-5.0) g/dL All other labs normal. Imaging Abdomen CT scan report/results: report reviewed and image reviewed Additional studies: CT abdomen pelvis: IMPRESSION: Moderate fat containing umbilical hernia with interval development of some fluid within the hernia sac likely a source of pain. However, no bowel containing hernia or CT evidence of strangulation as questioned. Moderate colonic stool burden. Colonic diverticulosis without diverticulitis. Additional chronic findings as above. Dictated by Ash Hernández MD @ 07/29/2024 10:23:[address] head: IMPRESSION: No acute intracranial abnormality on this noncontrast study. Dictated by Ash Hernández MD @ 07/29/2024 10:18:07 PM Progress Note:A&P Assessment and plan (1) Incarcerated hernia: Status: Acute (2) Diabetes mellitus, type II: Status: Chronic (3) Schizoaffective disorder: Status: Chronic Plan The patient is a 59-year-old female with an incarcerated fat-containing umbilical hernia. Given the redness over her skin I did recommend repair. I spoke to the patient about risks, benefits and recovery. I would recommend using an absorbable mesh which will decrease the risk of hernia recurrence and will eventually resorptive into her tissue without risk of infection. The patient does live alone but states that she has a good support network around her. I discussed with her that if she is able to have somebody stay with her this evening she could discharge home later today. If not we would keep her overnight in the hospital and she could discharge home tomorrow. She is agreeable with the surgical plan. All of her questions have been answered.
[2024-07-30] MEDS: ERTAPENEM 1 GM in 0.9 % SODIUM CHLORIDE Mini-bag 100 ML IVPB (09:40)
--- NOTE | 2024-07-30 09:52 | P.IMPN_ITS ---
Progress Note: A&P Assessment and plan (1) Incarcerated hernia: Problem details: - Umbilical hernia with incarcerated fat - surgery with Dr. Suárez 07/30, will likely need to stay overnight postoperatively Status: Acute (2) Diabetes mellitus, type II: Problem details: - diagnosed 2014, on metformin, Trulicity added by internal medicine consult (when in hospital for psychiatric evaluation) 09/27 - last A1C 6.0 10/29 Status: Chronic (3) Schizoaffective disorder: Problem details: - not currently on treatment for this - last psych hospitalization at [facility] 05/2024 - noted concern about missing organs during stay, no other paranoid concerns Status: Chronic Plan Surgery today, plan per above Subjective Date Seen: 07/30/24 Interval history: Judi was admitted to the hospital last night for a symptomatic umbilical hernia. She is having repair today with Dr. Suárez of general surgery. Lives alone and does not have anyone for ADL assistance postoperatively; will need to stay in the hospital overnight for ADL evaluation prior to discharge home. Judi has had a previous lumpectomy and mastectomy without anesthetic comp lications. History of DM2; last A1C 6.October. Only concern for hospitalist team is that previous imaging revealed missing organs - we discussed that her CT performed in ER was reassuring for all appropriate body parts. Exam Narrative: Exam Narrative: GEN: Alert and oriented, sitting comfortably at edge of bed HEENT: EOMIs bilaterally, no scleral icterus CV: RRR, No concerning murmurs, rubs, or gallops R: LCTA bilaterally without concerning wheezing, rales, or rhonchi Neuro: No focal deficits Psych: No evidence of acute paranoia, no agitation Const: Vital Signs, click to edit/add: Vital Signs - 24 hr 07/29/24 20:29 07/30/24 01:08 07/30/24 01:08 Temperature 98.3 F 97.7 F Pulse Rate [Left P ulse Oximeter] 83 Pulse Rate [Pulse Oximeter] 101 H Respiratory Rate 16 16 16 Blood Pressure [Le ft Arm] 139/90 H Blood Pressure [Ri ght Upper Arm] 119/83 Pulse Oximetry 97 99 99 Oxygen Delivery Me thod Room Air Room Air Room Air 07/30/24 03:00 07/30/24 08:47 Temperature 98.7 F 97.4 F L Pulse Rate [Left P ulse Oximeter] Pulse Rate [Pulse Oximeter] 89 95 Respiratory Rate 16 18 Blood Pressure [Le ft Arm] 113/68 135/82 Blood Pressure [Ri ght Upper Arm] Pulse Oximetry 94 96 Oxygen Delivery Me thod Room Air Room Air Labs Labs: Laboratory Results - last 24 hr 07/29/24 21:10 WBC 9.09 RBC 4.83 Hgb 14.7 Hct 44.8 MCV 93 MCH 30 MCHC 33 RDW Coeff of Iveth 13.0 Plt Count 368 Neut % (Auto) 54.8 Lymph % (Auto) 35.3 [place] % (Auto) 8.0 Eos % (Auto) 1.5 Baso % (Auto) 0.3 Neut # (Auto) 4.97 Lymph # (Auto) 3.21 H [place] # (Auto) 0.70 Eos # (Auto) 0.14 Baso # (Auto) 0.03 Abs Immat Gran (auto) 0.01 Imm/Tot Granulo (auto) 0.1 Sodium 135 Potassium 3.6 Chloride 101 Carbon Dioxide 25 Anion Gap 9 BUN 10 Creatinine 0.6 Estimated Creat Clear 94.51 Estimated GFR 103 Glucose 108 Calcium 9.5 Total Bilirubin 0.4 AST 20 ALT 28 Alkaline Phosphatase 87 Total Protein 7.2 Albumin 4.4 Lipase 95 POC Creatinine 0.6
[2024-07-30] MEDS: BUPIVACAINE 0.25% 30 ML INJECTION (10:30)
--- NOTE | 2024-07-30 10:39 | PM.GSPRC ---
Operative Note Date of procedure: 07/30/24 Pre-op diagnosis: Incarcerated fat containing umbilical hernia Post-op diagnosis: Same Type of Procedure: Open repair of 2 cm incarcerated umbilical hernia Indications: The patient is a 59-year-old female who presented to the emergency department last evening with a 1-2 day history of periumbilical pain and other chronic concerns. She was found on exam to have an incarcerated umbilical hernia with some redness around the skin. CT scan showed that this hernia contained incarcerated fat. She was admitted to the hospital overnight and plans were made for hernia repair in the morning. The patient agreed to repair after discussion of risks and benefits Procedure Description: After discussing the risks and benefits of the procedure, the patient signed informed consent.? The operative site was marked and the patient was brought to the operating room and placed on the operating table in supine position.? Care was taken to pad the patient's pressure points.?? The patient was then given sedation by anesthesia.?? The operative site was then prepped and draped in the usual sterile fashion.? A time-out was then performed. Local anesthetic was injected into the fascia, skin and subcutaneous tissues around the planned incision. A curvilinear incision was made at the superior aspect of the umbilicus. Dissection was carried down into the subcutaneous tissue using cautery. The hernia was encountered. There was edema noted in the subcutaneous tissue. No purulence. The hernia appeared to be containing fat. Dissection was taken down to the fascia. A narrow neck was noted. The hernia was unable to be reduced. I then carefully dissected through the fatty tissue with cautery. A structure was encountered which appeared to be peritoneum filled with fluid, however bowel could not be ruled out based on the appearance. I extended the fascial opening an additional cm in order to fully examine the tissue. This was confirmed to be hernia sac. The fat that had herniated primarily was preperitoneal fat and the hernia sac contained serous fluid. There was no bowel attached to the abdominal wall or hernia sac. The excess hernia sac was then reduced. Because of the hernia size (approximately 2 cm prior to extending the fascia and 3 cm after opening the fascia further), the decision was made to use mesh. Because of the redness of the skin, I elected to use an absorbable mesh for fear of potential infection, particularly in the setting of the patient having diabetes. First, a preperitoneal pocket was created using a combination of blunt dissection and cautery. Hemostasis appeared adequate. The anterior fascia was clear in the location of the planned transfascial sutures. Once the fascia was clear, a piece of Phasix ST mesh was obtained. This was trimmed to measure 8 x 9 cm. This was then placed in the preperitoneal space with care to ensure that it laid flat. This was secured into place using 2 0 PDS interrupted sutures. The fascial opening was then closed with a running 0 PDS suture. The umbilicus was reapproximated to the fascia. The skin was then closed with running absorbable suture. A sterile dressing was then applied. Instrument sponge needle counts were correct at the end the case. ? The patient was then woken and transported to the recovery area in stable condition. ? The patient tolerated the procedure well. Findings: Incarcerated umbilical hernia with edema and periwound redness containing preperitoneal fat and serous fluid. Implants: Phasix ST mesh Anesthesia: MAC Surgeon: Karrie Suárez MD Estimated blood loss (mL): 5 Condition: stable Disposition: PACU
--- NOTE | 2024-07-30 11:03 | P.ANES_ITS ---
Anesthesia Charges Start Date/Time Anesthesia Start Date: 07/30/24 Anesthesia Start Time: 09:33 Stop Date/Time Anesthesia Stop Date: 07/30/24 Anesthesia Stop Time: 10:56 Coding CPT Codes CPT Codes: ANESTH SURG UPPER ABDOMEN - 50008 ([id number]) P3 - PATIENT W/SEVERE SYS DISEASE, QX - NURSE INFECTION CONTROL SVC W/ MD MED DIRECTION, QK - COOK BOAT 2-4 CNCRNT ANES PROC
--- NOTE | 2024-07-30 11:03 | W.ANESCHARGE ---
Anesthesia Charges Start Date/Time Anesthesia Start Date: 07/30/24 Anesthesia Start Time: 09:33 Stop Date/Time Anesthesia Stop Date: 07/30/24 Anesthesia Stop Time: 10:56 Coding CPT Codes CPT Codes: ANESTH SURG UPPER ABDOMEN - 72244 ([id number]) P3 - PATIENT W/SEVERE SYS DISEASE, QX - CLOTHING SUPERVISOR SVC W/ MD MED DIRECTION, QK - RETAIL MARKETING SPECIALIST 2-4 CNCRNT ANES PROC
[2024-07-30] MEDS: HYDROmorphone 0.5 mg/0.5 ml inj IVP (11:15)
--- NOTE | 2024-07-30 12:00 | P.ANES_ITS ---
Anesthesia Charges Start Date/Time Anesthesia Start Date: 07/30/24 Anesthesia Start Time: 09:33 Stop Date/Time Anesthesia Stop Date: 07/30/24 Anesthesia Stop Time: 10:56 Coding CPT Codes CPT Codes: ANESTH SURG UPPER ABDOMEN - 58491 ([id number]) QK - SAP PLANT MAINTENANCE CONSULTANT 2-4 CNCRNT ANES PROC, QX - BARREL RAISER HELPER SVC W/ MD MED DIRECTION, P3 - PATIENT W/SEVERE SYS DISEASE
--- NOTE | 2024-07-30 12:00 | W.ANESCHARGE ---
Anesthesia Charges Start Date/Time Anesthesia Start Date: 07/30/24 Anesthesia Start Time: 09:33 Stop Date/Time Anesthesia Stop Date: 07/30/24 Anesthesia Stop Time: 10:56 Coding CPT Codes CPT Codes: ANESTH SURG UPPER ABDOMEN - 90773 ([id number]) QK - LIFE EDUCATOR 2-4 CNCRNT ANES PROC, QX - SUPPLY OFFICER SVC W/ MD MED DIRECTION, P3 - PATIENT W/SEVERE SYS DISEASE
[2024-07-30] MEDS: ONDANSETRON 2 MG/ML inj 4 MG IVP (14:02)
[2024-07-30] MEDS: ACETAMINOPHEN 325 MG TABLET 650 MG PO ×2 (14:16→20:17)
--- NOTE | 2024-07-30 20:07 | PC.NURSE ---
End of shift [id number] - Pt alert, oriented. Up independently in room. Appeared hesitant and at times confused about surgical plan for the day. RN offered to provide education, pt reported having second thoughts and wondering about the medical training of the MD. RN attempted to answer questions and provide reassurance. Pt agreeable to surgery. Pt returned from PACU at approximately 1100. Pt reported pain in abdomen and repeated that she was surprised that her abdomen hurt though she confirmed to the nurse that she was aware that she did have surgery. Pt had questions regarding pain medication, RN provided education and medication per SEP. Dressing CDI, pt refused ice pack offered by RN. Pt changed into their street clothes and requested that repeat vitals be d/c'd. Tolerating RA and regular diet. Appears to be resting in room with call light within reach.
[2024-07-30] MEDS: SODIUM CHLORIDE 0.9 % (FLUSH) 10 ML SYRINGE 5 ML IVF (20:51)
[2024-07-31 02:43] VITALS: BP 122/62; PULSE 101; RESP 16; TEMP 37.1; O2SAT 94
--- NOTE | 2024-07-31 06:16 | PC.NURSE ---
End of shift [id number]: Pt AxOx4, appearing anxious upon initial assessment. Pt reported multiple times during shift stating, ?I would like to be discharged.? Papier Mache' Molder utilized therapeutic communication to build rapport and explain plans of care. Pt up indep in room. Pt reported pain to the abdomen and did not understand why it still hurts. Pt stated, ?I question even what the doctor did during surgery.? Pt was hesitant about taking medication for pain but was okay with Tylenol. See MAR. Papier Mache' Molder also utilized repo, warming blanket, and dimmed lighting. Dressing remains CDI. Tolerating regular diet/fluids well. Pt had a shower during the evening and noted feeling more relaxed. Continent of the bladder. Pt refused lab drawn this morning. Pt reported I cannot give any blood, I lost too much in 2004 and I do not think my blood has replenished. Papier Mache' Molder walked Pt through lab results via chart and Pt chose to still refuse. Pt appears resting with call light in reach. ?
[2024-07-31 08:19] LABS: Basophils Percent Auto 0.3 % (0.0-3.0); Eosinophils Percent Auto 0.1 % (0.0-7.0); Hematocrit 40.8 % (33.0-51.0); Hemoglobin* 13.3 gm/dL (12.0-16.0); Immature Granulocytes Pct Auto 0.1 %; Lymphocytes Percent Auto 11.5 % (20-44); Mean Corpuscular HGB Conc 33 gm/dL (32-36); Mean Corpuscular Hemoglobin 30 pg (26-34); Mean Corpuscular Volume 93 fL (80-100); Monocytes Percent Auto 10.8 % (0.0-11.0); Neutrophils Percent Auto 77.2 % (42.0-72.0); Platelet Count* 319 K/uL (140-440); Red Blood Count 4.39 m/uL (4.00-5.20); White Blood Count* 11.15 K/uL (4.50-11.00)
[2024-07-31] MEDS: ONDANSETRON 2 MG/ML inj 4 MG IVP (08:21)
[2024-07-31] MEDS: lisinopriL 10 MG TABLET PO (08:21)
[2024-07-31] MEDS: HYDROCODONE-ACETAMIN 5-325 MG 1 TAB PO (08:21)
[2024-07-31] MEDS: AMPICILLIN/SULBACTAM 1.5 GM in 0.9 % SODIUM CHLORIDE Mini-bag 100 ML IVPB (08:22)
[2024-07-31 08:23] LABS: Slide Review Reflex No
[2024-07-31] MEDS: SODIUM CHLORIDE 0.9 % (FLUSH) 10 ML SYRINGE 5 ML IVF (08:24)
--- NOTE | 2024-07-31 08:34 | PM.GSPN ---
Subjective Subjective Date Seen: 07/31/24 Interval history: Judi states that this morning she is having more abdominal pain than before. She states that it is ?coming from my fat. ? She relates to her mid/lower abdomen just below the hernia repair site. She states that she ate after surgery but was nauseated. She does not feel nauseated now. Exam Narrative: Exam Narrative: General: No acute distress CV: Mild tachycardia with a heart rate of 101 Abdomen: Erythema noted below the incision which is larger than preop. This is also indurated. No purulence. No guarding or rebound on the abdomen. Const: Vital Signs, click to edit/add: Vital Signs - 24 hr 07/30/24 08:47 07/30/24 10:58 07/30/24 10:58 Temperature 97.4 F L 97.4 F L Pulse Rate 86 86 Pulse Rate [Pulse Oximeter] 95 Respiratory Rate 18 16 Blood Pressure 118/73 118/73 Blood Pressure [Le ft Arm] 135/82 Blood Pressure [Ri ght Arm] Pulse Oximetry 96 96 96 Oxygen Delivery Me thod Room Air Room Air Room Air 07/30/24 11:15 07/30/24 11:30 07/30/24 11:45 Temperature 97.2 F L Pulse Rate 74 Pulse Rate [Pulse Oximeter] Respiratory Rate 16 Blood Pressure 141/82 H 149/83 H 144/88 H Blood Pressure [Le ft Arm] Blood Pressure [Ri ght Arm] Pulse Oximetry 98 Oxygen Delivery Hi thod Room Air 07/30/24 12:00 07/30/24 12:30 07/30/24 14:00 Temperature 97.5 F L 96.7 F L Pulse Rate 82 90 Pulse Rate [Pulse Oximeter] Respiratory Rate Blood Pressure 148/84 H 139/96 H 152/90 H Blood Pressure [Le ft Arm] Blood Pressure [Ri ght Arm] Pulse Oximetry 94 96 Oxygen Delivery Hi thod Room Air Room Air 07/30/24 15:00 07/30/24 16:15 07/30/24 19:00 Temperature 96.7 F L 98 F Pulse Rate 100 Pulse Rate [Pulse Oximeter] 109 H Respiratory Rate 18 18 18 Blood Pressure 125/83 Blood Pressure [Le ft Arm] Blood Pressure [Ri ght Arm] 154/112 H Pulse Oximetry 95 95 94 Oxygen Delivery Hi thod Room Air Room Air 07/30/24 20:50 07/30/24 23:00 07/30/24 23:00 Temperature 98 F Pulse Rate Pulse Rate [Pulse Oximeter] 105 H 99 Respiratory Rate 16 16 Blood Pressure Blood Pressure [Le ft Arm] 130/76 139/75 Blood Pressure [Ri ght Arm] Pulse Oximetry 95 95 Oxygen Delivery Me thod Room Air Room Air 07/31/24 02:43 Temperature 98.8 F Pulse Rate Pulse Rate [Pulse Oximeter] 101 H Respiratory Rate 16 Blood Pressure Blood Pressure [Le ft Arm] Blood Pressure [Ri ght Arm] 122/62 Pulse Oximetry 94 Oxygen Delivery Me thod Room Air Labs/Imaging Labs Labs: White blood cell count today is 11.15. Progress Note:A&P Assessment and plan (1) Incarcerated hernia: Status: Acute (2) Cellulitis: Status: Acute (3) Hx of umbilical hernia repair: Status: Acute (4) Psychosocial stressors: Status: Acute (5) Schizoaffective disorder: Status: Chronic Plan The patient is a 59-year-old female who is postop day 1 status post repair of an incarcerated umbilical hernia. She did have some erythema preoperatively with no purulence noted. Postop the erythema was gone. She had received ertapenem at the time of surgery. This morning she has more redness and induration. -recommend IV antibiotics this morning. Will reassess redness. Patient will need to be discharged home on oral antibiotics. Pharmacy will need to be updated in order to send this prescription. -since patient had nausea with eating yesterday, recommend that she eat prior to discharge. -patient would like to discharge home, however I reassured her that I do want to make sure that she is improved prior to discharge. -will also recheck vital signs given that heart rate was 101 overnight.
[2024-07-31 08:38] VITALS: BP 129/94; PULSE 103; RESP 20; TEMP 36.7; O2SAT 93
--- NOTE | 2024-07-31 11:07 | P.DS_ITS ---
DS: Providers Provider Date Seen: 07/31/24 Primary care physician: Pau Ordonez MD Attending Physician on discharge: Florin iDnero MD DS: Diagnosis Discharge Diagnosis (1) Hx of umbilical hernia repair: Status: Acute (2) Cellulitis: Status: Acute (3) Incarcerated hernia: Status: Acute Problem details: - Umbilical hernia with incarcerated fat - surgery with Dr. Suárez 07/30, will likely need to stay overnight postoperatively DS: Summary Hospital Course Hospital Course: The patient is a 59-year-old female who underwent repair of an incarcerated fat containing umbilical hernia. She was kept overnight for observation given absence of assistance at home. On postop day 1 she was evaluated. She wished to return home, however she had pain around the incision. This was evaluated and found to be cellulitic. She received additional IV antibiotics. She was able to tolerate a diet and later that morning she was to discharge home. The area of redness on her abdomen was marked with a marking pen and she was given strict instructions to return to be seen if her pain worsens, she develops a fever or the redness extends beyond the marked area. Time Spent with Patient Time attestation: Total time spent providing and/or coordinating discharge services: Exam Narrative: Exam Narrative: General: No acute distress CV: Mild tachycardia with heart rate of 100. Respiratory: Breathing nonlabored Abdomen: Erythema noted around the incision. This is approximately 12 x 5 cm. No drainage from the incision. No peritonitis. Abdomen minimally tender except for the area around the incision. Const: Vital Signs, click to edit/add: Vital Signs - 24 hr 07/30/24 11:15 07/30/24 11:30 07/30/24 11:45 Temperature 97.2 F L Pulse Rate 74 Pulse Rate [Pulse Oximeter] Respiratory Rate 16 Blood Pressure 141/82 H 149/83 H 144/88 H Blood Pressure [Le ft Arm] Blood Pressure [Ri ght Arm] Pulse Oximetry 98 Oxygen Delivery Me thod Room Air 07/30/24 12:00 07/30/24 12:30 07/30/24 14:00 Temperature 97.5 F L 96.7 F L Pulse Rate 82 90 Pulse Rate [Pulse Oximeter] Respiratory Rate Blood Pressure 148/84 H 139/96 H 152/90 H Blood Pressure [Le ft Arm] Blood Pressure [Ri ght Arm] Pulse Oximetry 94 96 Oxygen Delivery Me thod Room Air Room Air 07/30/24 15:00 07/30/24 16:15 07/30/24 19:00 Temperature 96.7 F L 98 F Pulse Rate 100 Pulse Rate [Pulse Oximeter] 109 H Respiratory Rate 18 18 18 Blood Pressure 125/83 Blood Pressure [Le ft Arm] Blood Pressure [Ri ght Arm] 154/112 H Pulse Oximetry 95 95 94 Oxygen Delivery Me thod Room Air Room Air 07/30/24 20:50 07/30/24 23:00 07/30/24 23:00 Temperature 98 F Pulse Rate Pulse Rate [Pulse Oximeter] 105 H 99 Respiratory Rate 16 16 Blood Pressure Blood Pressure [Le ft Arm] 130/76 139/75 Blood Pressure [Ri ght Arm] Pulse Oximetry 95 95 Oxygen Delivery Nh thod Room Air Room Air 07/31/24 02:43 07/31/24 08:38 Temperature 98.8 F 98.1 F Pulse Rate Pulse Rate [Pulse Oximeter] 101 H 103 H Respiratory Rate 16 20 Blood Pressure Blood Pressure [Le ft Arm] 129/94 H Blood Pressure [Ri ght Arm] 122/62 Pulse Oximetry 94 93 Oxygen Delivery Me thod Room Air Room Air DS: Data Data Completed and Pending Labs on day of discharge: Labs from last 24 hours 07/31/24 07:56 WBC 11.15 H RBC 4.39 Hgb 13.3 Hct 40.8 MCV 93 MCH 30 MCHC 33 RDW Coeff of Iveth 13.0 Plt Count 319 Neut % (Auto) 77.2 H Lymph % (Auto) 11.5 L Isabella % (Auto) 10.8 Eos % (Auto) 0.1 Baso % (Auto) 0.3 Neut # (Auto) 8.60 H Lymph # (Auto) 1.30 Isabella # (Auto) 1.20 H Eos # (Auto) 0.00 Baso # (Auto) 0.00 Abs Immat Gran (auto) 0.00 Imm/Tot Granulo (auto) 0.1 Discharge Plan Discharge Disposition: Home w/ Parent or Adult Discharging Surgeon: Karrie Suárez Follow-Up Appointment: Aug 04 Prescriptions: New hydrocodone-acetaminophen 5-325 mg tablet 1 tab PO Q6H PRN (Reason: pain) Qty: 14 0RF amoxicillin-pot clavulanate 875-125 mg tablet 1 tab PO BID Qty: 14 0RF Continued (DME) Accu-Chek SmartView Test Strip Strip See Rx Instructions .Route Rx Instructions: As directed Ricardo Ellipta 200-62.5-25 mcg blister with device 1 inh inhalation Q24H (DME) lancets [Accu-Chek Softclix Lancets] Misc MISCELLANEOUS Patient Comments: USE TO TEST ONCE DAILY. lisinopril 10 mg tablet 10 mg PO DAILY metformin 500 mg tablet extended release 24 hr 1,000 mg PO DAILY albuterol sulfate [Ventolin HFA] 90 mcg/actuation HFA aerosol inhaler 2 puff INHALATION Q4H PRN Trulicity 1.5 mg/0.5 mL pen injector 1.5 mg subcut QWEEK Qty: 2 1RF Activity Level: No strenuous activity Activity Detail: No lifting more than 20 lb for 4 weeks Discharge Diet: Diabetic Patient Instructions: Deep Sedation (DC), Ventral Hernia Repair (DC), Post- Operative Instructions: Hernia Repair Additional Instructions: Wound care: There is redness around your incision. This was marked with a marking pen. If the redness is spreading outside of the area marked by the pen, please call or return to be seen. Your sutures are under the skin and will dissolve over time. Take the prescribed antibiotics for pain. Leave steri strips (white bandages) over incisions until they fall off (or remove after 7 days). OK to shower today but avoid bathing, soaking or swimming for 2 weeks. Pat the incisions dry. No need to wash or scrub the area. Apply ice to the area as needed for swelling. It is also OK to use a heating pad if this provides more comfort to you. Pain control: You were prescribed a pain medication. This medication contains acetaminophen (Tylenol). If you are taking your prescribed pain pills 4 times daily, do not take additional acetaminophen. As your pain improves, you can try taking acetaminophen instead of the prescribed pain pill. It is ok to take Ibuprofen or Naproxen (per directions on packaging). This medication helps with inflammation and swelling. Take an [id number] stool softener while you are taking prescribed pain medications to help alleviate constipation. I recommend Senna and/or Colace. Take as directed on package. If you have not had a bowel movement in 3 days, try taking Miralax as directed on the package. All of these are available over the counter. Follow-up Follow up with Dr. Suárez next Saturday in clinic. Please call if you are experiencing severe pain, nausea, vomiting, difficulty urinating, fever or have not had bowel movement in 4 days after surgery. Forms: [employer] Info Instructions Follow-up: Pau Ordonez MD [Primary Care Provider] - Karrie Suárez MD [Staff Physician] - Discharge Orders: Discharge Order (Routine); Ordered 07/31/24 Ordered By: Karrie Suárez Consulting provider completed their portion of the discharge: Yes
--- NOTE | 2024-07-31 14:14 | PC.NURSE ---
discharge instructions gone over with pt all questions answered. Patient called her own ride and waited until they arrived. Patient stable on discharge and wanted to walk her self out verus the wheel chair that was offered.
--- NOTE | 2024-07-31 16:08 | PC.SOCIAL ---
Social work note: Received call from Kesha Styles [facility] Vulnerable Adult worker, stating there is an open vulnerable adult case on this patient and that there was supposed to be a Guardianship Hearing today which has been moved to Saturday. Informed Kesha that pt has already been discharged home. Kesha states she is concerned about pt's mental health. Kesha is aware pt has been discharged home and where she can locate pt if needed. Kesha Styles stated she heard from [facility] staff pt was wandering in the basement of the hospital looking for babies. optical goods worker shared this information with hospital security.Secure emailed hospital H&P for this visit to Kesha Styles at her request as this is an open Vulnerable Adult case.
== END 2024-07-31 13:13 | disposition home or self-care (01) ==
LOC: ED 22:37 → MEDSURG 07-30 08:40 → OR 07-30 14:33 → MEDSURG 07-30 14:34
PROVIDERS: Family Medicine; Emergency Provider Student in an Organized Health Care Education/Training Program; PCP Internal Medicine; Visit Provider Surgery
PROC: (CPT 49592; principal; 2024-07-30 09:30)
DX: K42.0 Umbilical hernia with obstruction, without gangrene (principal); R10.33 Periumbilical pain; L03.316 Cellulitis of umbilicus; F25.9 Schizoaffective disorder, unspecified; E66.9 Obesity, unspecified; E11.9 Type 2 diabetes mellitus without complications; I10 Essential (primary) hypertension; G47.33 Obstructive sleep apnea (adult) (pediatric); J45.40 Moderate persistent asthma, uncomplicated; F43.22 Adjustment disorder with anxiety; Z79.84 Long term (current) use of oral hypoglycemic drugs
CPT/HCPCS: 49592; 00790; 36415; 70450; 74177; 80053; 82565; 83690; 85025; 99284; 99285; A9270; C1781; J0295; J0330; J0665; J1171; J1335; J2250; J2405; J2704; J3010; J3490; J7120; Q9967